=== PATIENT | female | born 1960 | race Caucasian/White ===

== ENCOUNTER → 2016-11-16 | Outpatient (CLI) | payer BC, OTHER ==
[~2016-11-16] MED LIST: ATOR-22 PO; B-COTAB18 PO; CINN500C13 PO; CYCL10TA6 PO; FERR325T PO; FERR325T51 PO; FLAX1CAP11 PO; GLC/500 PO; MELO15TA4 PO; MELO7.5T5 PO; OMEP40CA PO; OMEP40CA41 PO; OXYC-292 PO; PREG1CAP70 PO; SULI200T4 PO; TOPI50TA24 PO; ZOLP1TAB PO
[2016-11-20 20:18] LABS: ALTERNARIA CLASS 0; ALTERNARIA IGE <0.10 KU/L; ASPERG FUMIG CLASS 0; ASPERG FUMIG IGE <0.10 KU/L; BAHIA GRASS ASM CLASS 0; BAHIA GRASS IGE <0.10 KU/L; BERMUDA GRASS CLASS 0; BERMUDA GRASS IGE <0.10 KU/L; BIRCH CLASS 0; BLACK LOCUST CLASS 0; BLACK LOCUST IGE <0.35 kU/L (<0.35); CAT DANDER CLASS 0; CLADOSPORIUM HER CLASS 0; CLADOSPORIUM HER IGE <0.10 KU/L; COCKROACH CLASS 0; D. FARINAE CLASS 0; D. FARINAE IGE <0.10 KU/L; D. PTERONYSSINUS CLASS 0; D. PTERONYSSINUS IGE <0.10 KU/L; DOG DANDER CLASS 0; ELM CLASS 0; ENGLISH PLAN CLASS 0; ENGLISH PLAN IGE <0.10 KU/L; JOHNSON CLASS 0; JOHNSON IGE <0.10 KU/L; JUNE (KENTUCKY BLUE) CLASS 0; JUNE IGE <0.10 KU/L; MAPLE (BOX ELDER) IGE <0.10 KU/L; MAPLE CLASS 0; MOUNTAIN CEDAR ASM CLASS 0; MOUNTAIN CEDAR IGE <0.10 KU/L; MUCOR CLASS 0; MUCOR IGE <0.10 KU/L; NETTLE CLASS 0; NETTLE IGE <0.10 KU/L; PENIC NOTATUM CLASS 0; PENIC NOTATUM IGE <0.10 KU/L; ROUGH PIGWEED CLASS 0; ROUGH PIGWEED IGE <0.10 KU/L; SHORT RAGWEED CLASS 0; SHORT RAGWEED IGE <0.10 KU/L; STEMPHY BOTRY CLASS 0; STEMPHY BOTRY IGE <0.10 KU/L; WHITE HICKORY ASM CLASS 0; WHITE HICKORY IGE <0.10 kU/L (<0.35); WHITE MULBERRY CLASS 0; WHITE MULBERRY IGE <0.10 KU/L
== END | disposition home or self-care (01) ==
LOC: C.LAB1850 09:08
PROVIDERS: ATTEND Internal Medicine Pulmonary Disease
DX: L29.9 Pruritus, unspecified (principal); R06.7 Sneezing

== ENCOUNTER → 2017-01-27 | Outpatient (CLI) | payer BC, OTHER ==
[~2017-01-27] MED LIST changes: +FERR1TAB62 PO; -FERR325T PO
[2017-01-27 14:39] LABS: BASO % 0.6 %; BASO ABS # 0.03 K/uL (0-0.2); COMPLETE YES; EOS % 1.3 %; HEMATOCRIT 38.5 % (37-47); LYMPH % 35.6 %; MEAN CORPUSCULAR HEMOGLOBIN 31.9 pg (25-34); MEAN CORPUSCULAR HGB CONC 34.3 g/dl (32-36); MEAN PLATELET VOLUME 9.6 fL (7.4-10.4); MONO % 6.2 %; NEUT % 56.3 %; PLATELET COUNT 229 K/uL (130-400); RED BLOOD COUNT 4.14 M/uL (4.2-5.4); WHITE BLOOD COUNT 5.34 K/uL (4.8-10.8)
[2017-01-27 14:55] LABS: CALCIUM 9.4 mg/dl (8.5-10.1)
[2017-01-27 14:59] LABS: BLOOD UREA NITROGEN 14 mg/dl (7-18); BUN/CREATININE RATIO 18.9 (10-20); CARBON DIOXIDE 30 mmol/L (21-32); CHLORIDE 106 mmol/L (98-107); CREATININE 0.74 mg/dl (0.60-1.20); GLUCOSE 161 mg/dl (70-99); POTASSIUM 3.9 mmol/L (3.5-5.1); SODIUM 142 mmol/L (136-145)
[2017-01-27 16:48] LABS: LYME DISEASE AB IGM NEG (NEG)
[2017-01-27 16:51] LABS: LYME DISEASE AB IGG NEG (NEG)
== END | disposition home or self-care (01) ==
LOC: C.LABBC 11:10
PROVIDERS: ATTEND Nurse Practitioner Adult Health
DX: T14.8 Other injury of unspecified body region (principal); W57.XXXA Bitten or stung by nonvenomous insect and other nonvenomous arthropods, initial encounter; E11.9 Type 2 diabetes mellitus without complications

== ENCOUNTER → 2017-03-02 | Outpatient (CLI) | payer BC, OTHER ==
[2017-03-02 14:17] LABS: ESTIMATED AVERAGE GLUCOSE 134 mg/dl; HA1C FLAG Normal (Normal)
== END | disposition home or self-care (01) ==
LOC: C.LABBC 09:51
PROVIDERS: ATTEND Nurse Practitioner Adult Health
DX: Z00.00 Encounter for general adult medical examination without abnormal findings (principal); E11.9 Type 2 diabetes mellitus without complications

== ENCOUNTER → 2017-03-25 | Day surgery (SDC) | payer BC, OTHER ==
[2017-03-23 07:40] VITALS: BMI 33.0
[~2017-03-25] VITALS: Ht 167.6 cm; Wt 93.2 kg
[~2017-03-25] MED LIST changes: -FERR1TAB62 PO; +FERR325T PO; +LIDOCAINE HCL 2% 2 ML VIAL (20MG/ML) ONE; -MELO7.5T5 PO; -PREG1CAP70 PO; +PROPOFOL IV EMULSION 10 MG/ML 20 ML VIAL IV ONE; +SODIUM CHLORIDE 0.9% 500ML 500 ML IV ONE
[2017-03-25 14:32] VITALS: Ht 167.6 cm; Wt 93.2 kg
--- NOTE | 2017-03-25 14:35 | Endo History and Physical ---
History & Physical Date of Service: Mar 25, 2017. Chief Complaint: GERD Screening colonoscopy Referring Physician: Yulia Wang History of Present Illness 57 yo CF who presents for EGD secondary to GERD and screening colonoscopy. Past Medical History Diabetes, Fractures, Anxiety, Reflux, High Cholesterol, Sleep Apnea, Syncopal Episodes, Depression Past Surgical History Hx Cardiac Surgery: No Hx Internal Defibrillator: No Hx Pacemaker: No Hx Abdominal Surgery: Yes (C SECTION X 3, HAN USO) Hx of Implantable Prosthesis: No Hx Post-Op Nausea and Vomiting: No Hx Cancer Surgery: No Hx Thoracic Surgery: No Hx Orthopedic: Yes (LUMBAR LAMINECTOMY, LUMBAR DENERVATION) Hx Urinary Tract Surgery: No Family History None Social History Smoking Status: Former Smoker Hx Substance Use: No Hx Alcohol Use: No (OCAS) Allergies Coded Allergies: Gabapentin (Verified Allergy, Mild, HIVES, 03/25/17) Pregabalin (Verified Allergy, Mild, HIVES, 03/25/17) Cephalexin (Verified Allergy, Unknown, ANAPHYLAXIS, 03/25/17) Latex (Unverified Allergy, Unknown, rash, 03/25/17) Penicillins (Verified Allergy, Unknown, ANAPHYLAXIS, 03/25/17) Sulfa Antibiotics (Verified Allergy, Unknown, ANAPHYLAXIS, 03/25/17) Current Medications Reported Home Medications Medications Dose Route/Sig Max Daily Dose Days Date Category Dose Instructions Ambien Er (Zolpidem Tartrate) 12.5 Mg Tab 12.5 Mg PO HS 03/23/17 Reported Clinoril (Sulindac) 200 Mg Tab 200 Mg PO QAM 03/23/17 Reported Flax Seed Oil (Flaxseed (Linseed)) 1 Cap Cap 1 Cap PO ON HOLD 07/31/16 Reported Vitamin B Complex (B-Complex Vitamins) 1 Tab Tab 1 Tab PO HOLD 07/31/16 Reported Cinnamon Extract (Cinnamon) 500 Mg Cap 1 Cap PO BID 07/31/16 Reported ON HOLD Iron Supplement (Ferrous Sulfate) 325 Mg Tab 1 Tab PO HOLD 30 04/03/16 Reported Glucophage (Metformin Hcl) 500 Mg Tab 500 Mg PO BID 04/03/16 Reported Topamax (Topiramate) 50 Mg Tab 50 Mg PO BID 04/03/16 Reported Flexeril (Cyclobenzaprine Hcl) 10 Mg Tab 10 Mg PO HS PRN 04/03/16 Reported Prilosec (Omeprazole) 40 Mg Capcr 40 Mg PO QAM 04/03/16 Reported Lipitor (Atorvastatin Calcium) 20 Mg Tab 20 Mg PO QAM 04/03/16 Reported Vital Signs Weight (Kilograms): 93.18 Height (Feet): 5 Height (Inches): 6 Physical Exam General Appearance: WD/WN, no apparent distress Respiratory/Chest: Auscultation: breath sounds normal Cardiovascular: Heart Auscultation: RRR Abdomen: Bowel Sounds: normal Inspection & Palpation: soft, non-distended, no tenderness, guarding & rebound Assessment and Plan Assessment: 57 yo CF who presents for EGD secondary to GERD and screening colonoscopy. Plan: Proceed with EGD and Colonoscopy.
--- NOTE | 2017-03-25 15:24 | GI REPORT ---
Procedure Date: 03/25/2017 3:10 PM Procedure: Upper GI endoscopy Indications: Gastro-esophageal reflux disease Medicines: Monitored Anesthesia Care Complications: No immediate complications. Estimated Blood Loss: Estimated blood loss: none. Procedure: Pre-Anesthesia Assessment: - Prior to the procedure, a History and Physical was performed, and patient medications and allergies were reviewed. The patient's tolerance of previous anesthesia was also reviewed. The risks and benefits of the procedure and the sedation options and risks were discussed with the patient. All questions were answered, and informed consent was obtained. Prior Anticoagulants: The patient has taken no previous anticoagulant or antiplatelet agents. ASA Grade Assessment: II - A patient with mild systemic disease. After reviewing the risks and benefits, the patient was deemed in satisfactory condition to undergo the procedure. After obtaining informed consent, the endoscope was passed under direct vision. Throughout the procedure, the patient's blood pressure, pulse, and oxygen saturations were monitored continuously. The Scope was introduced through the mouth, and advanced to the second part of duodenum. The upper GI endoscopy was accomplished without difficulty. The patient tolerated the procedure well. Findings: Localized candidiasis was found in the middle third of the esophagus. Cells for cytology were obtained by brushing. The Z-line was irregular. Biopsies were taken with a cold forceps for histology. The stomach was normal. The examined duodenum was normal. Impression: - Monilial esophagitis. Cells for cytology obtained. - Z-line irregular. Biopsied. - Normal stomach. - Normal examined duodenum. Recommendation: - Resume previous diet. - Continue present medications. - Await pathology results. - Return to GI office as previously scheduled. Alfonzo Miller, DO 03/25/2017 3:24:15 PM This report has been signed electronically. Note Initiated On: 03/25/2017 3:10 PM I attest to the content of the Intraoperative Record and orders documented therein, exceptions below
--- NOTE | 2017-03-25 15:57 | Anesthesiology Progress Note ---
Anesthesia Post Op Note Date & Time Mar 25, 2017 at 15:56 Vital Signs Pain Intensity: 0 Vital Signs Past 12 Hours Date Time Temp Pulse Resp B/P (MAP) Pulse Ox O2 Delivery O2 Flow Rate FiO2 03/25/17 14:40 37.4 78 20 110/70 (83) 97 Room Air Notes Mental Status: alert / awake / arousable, participated in evaluation Pt Amnestic to Procedure: Yes Nausea / Vomiting: adequately controlled Pain: adequately controlled Airway Patency, RR, SpO2: stable & adequate BP & HR: stable & adequate Hydration State: stable & adequate Anesthetic Complications: no major complications apparent
--- NOTE | 2017-03-25 16:02 | Discharge Instructions ---
Endoscopy Patient Instructions Date / Procedure(s) Performed Mar 25, 2017. Colonoscopy, EGD Allergy Information Coded Allergies: Gabapentin (Verified Allergy, Mild, HIVES, 03/25/17) Pregabalin (Verified Allergy, Mild, HIVES, 03/25/17) Cephalexin (Verified Allergy, Unknown, ANAPHYLAXIS, 03/25/17) Latex (Unverified Allergy, Unknown, rash, 03/25/17) Penicillins (Verified Allergy, Unknown, ANAPHYLAXIS, 03/25/17) Sulfa Antibiotics (Verified Allergy, Unknown, ANAPHYLAXIS, 03/25/17) Discharge Date / Findings Mar 25, 2017. EGD: Esophageal biopsies and brushings Colonoscopy: Colon polyps, Internal hemorrhoids Medication Instructions Stopped Medication(s): VITAMINS AND SUPPLEMENTS OK to resume all medications today as prescribed Reported Home Medications Medications Dose Route/Sig Max Daily Dose Days Date Category Dose Instructions Ambien Er (Zolpidem Tartrate) 12.5 Mg Tab 12.5 Mg PO HS 03/23/17 Reported Clinoril (Sulindac) 200 Mg Tab 200 Mg PO QAM 03/23/17 Reported Flax Seed Oil (Flaxseed (Linseed)) 1 Cap Cap 1 Cap PO ON HOLD 07/31/16 Reported Vitamin B Complex (B-Complex Vitamins) 1 Tab Tab 1 Tab PO HOLD 07/31/16 Reported Cinnamon Extract (Cinnamon) 500 Mg Cap 1 Cap PO BID 07/31/16 Reported ON HOLD Iron Supplement (Ferrous Sulfate) 325 Mg Tab 1 Tab PO HOLD 30 04/03/16 Reported Glucophage (Metformin Hcl) 500 Mg Tab 500 Mg PO BID 04/03/16 Reported Topamax (Topiramate) 50 Mg Tab 50 Mg PO BID 04/03/16 Reported Flexeril (Cyclobenzaprine Hcl) 10 Mg Tab 10 Mg PO HS PRN 04/03/16 Reported Prilosec (Omeprazole) 40 Mg Capcr 40 Mg PO QAM 04/03/16 Reported Lipitor (Atorvastatin Calcium) 20 Mg Tab 20 Mg PO QAM 04/03/16 Reported Provider Instructions Activity Restrictions - No exercising or heavy lifting for 24 hours. - Do not drink alcohol the day of the procedure. - Do not drive a car or operate machinery until the day after the procedure. - Do not make any important decisions or sign important papers in 24 hours after the procedure. Following Day: - Return to full activity which may include returning to work/school. Diet Start your diet with liquids and light foods (jello, soup, juice, toast). Then eat your usual diet if not nauseated. Treatment For Common After Affects For mild abdominal pain, bloating, or excessive gas: - Rest - Eat lightly - Lie on right side Follow-Up Information Follow-up with [facility] as scheduled Anesthesia Information What You Should Know You have had a procedure that required some medicine to reduce anxiety and discomfort. This treatment is called moderate sedation. After receiving the treatment, you may be sleepy, but you will be able to breathe on your own. The effects of the treatment may last for several hours. Follow these instructions along with Activity/Diet recommendations noted above: * Do NOT do anything where dizziness or clumsiness would be dangerous. * Rest quietly at home today, then you can be up and about tomorrow. * Have a responsible person stay with you the rest of today. * You may have had an I.V. today. If so, you may take the dressing off later today. Recommendations Call your doctor if: * Trouble breathing * Continuous vomiting for more than 24 hours * Temperature above 101 degrees * Severe abdominal pain or bloating * Pain not relieved by pain medicine ordered * There is increased drainage or redness from any incision * A large amount of rectal bleeding greater than 2-3 tablespoons. (If you had a polyp/s removed or have hemorrhoids, a small amount of blood - from the rectum is to be expected.) * You have any unanswered questions or concerns. IN THE EVENT OF A SERIOUS EMERGENCY, GO TO THE NEAREST EMERGENCY ROOM Your discharge instructions were prepared by provider Alfonzo Miller. Patient Instructions Signature Page Jodi Ayala Patient (or Guardian) Signature/Date: I have read and understand the instructions given to me by my caregivers. Caregiver/RN/Doctor Signature/Date: The above-named patient and/or guardian has received patient instructions on this date. + Original Patient Signature Page (only) stays with chart. Please make copy for patient.
--- NOTE | 2017-03-25 16:05 | GI REPORT ---
Procedure Date: 03/25/2017 3:10 PM Procedure: Colonoscopy Indications: Screening for colorectal malignant neoplasm Medicines: Monitored Anesthesia Care Complications: No immediate complications. Estimated Blood Loss: Estimated blood loss: none. Procedure: Pre-Anesthesia Assessment: - Prior to the procedure, a History and Physical was performed, and patient medications and allergies were reviewed. The patient's tolerance of previous anesthesia was also reviewed. The risks and benefits of the procedure and the sedation options and risks were discussed with the patient. All questions were answered, and informed consent was obtained. Prior Anticoagulants: The patient has taken no previous anticoagulant or antiplatelet agents. ASA Grade Assessment: II - A patient with mild systemic disease. After reviewing the risks and benefits, the patient was deemed in satisfactory condition to undergo the procedure. After I obtained informed consent, the scope was passed under direct vision. Throughout the procedure, the patient's blood pressure, pulse, and oxygen saturations were monitored continuously. The Scope was introduced through the anus and advanced to the terminal ileum. The colonoscopy was performed without difficulty. The patient tolerated the procedure well. The quality of the bowel preparation was good. The terminal ileum, ileocecal valve, appendiceal orifice, and rectum were photographed. Findings: Two sessile polyps were found in the transverse colon and in the ascending colon. The polyps were 5 to 6 mm in size. These polyps were removed with a hot snare. Resection and retrieval were complete. Non-bleeding internal hemorrhoids were found during retroflexion. The hemorrhoids were small. Impression: - Two 5 to 6 mm polyps in the transverse colon and in the ascending colon, removed with a hot snare. Resected and retrieved. - Non-bleeding internal hemorrhoids. Recommendation: - Resume previous diet. - Continue present medications. - Repeat colonoscopy for surveillance based on pathology results. - Return to primary care physician as previously scheduled. Alfonzo Miller DO 03/25/2017 4:04:12 PM This report has been signed electronically. Note Initiated On: 03/25/2017 3:10 PM I attest to the content of the Intraoperative Record and orders documented therein, exceptions below
[2017-03-25 16:24] VITALS: BP 123/68; PULSE 65; O2SAT 99
== END | disposition home or self-care (01) ==
LOC: C.GI 13:46
PROVIDERS: ATTEND Internal Medicine
DX: Z12.11 Encounter for screening for malignant neoplasm of colon (principal); K21.9 Gastro-esophageal reflux disease without esophagitis; D12.3 Benign neoplasm of transverse colon; D12.2 Benign neoplasm of ascending colon; K64.8 Other hemorrhoids; K31.89 Other diseases of stomach and duodenum; K20.8 Other esophagitis; E11.9 Type 2 diabetes mellitus without complications; E78.00 Pure hypercholesterolemia, unspecified; G47.33 Obstructive sleep apnea (adult) (pediatric); Z98.890 Other specified postprocedural states; Z87.891 Personal history of nicotine dependence; Z88.0 Allergy status to penicillin; Z88.2 Allergy status to sulfonamides; Z91.040 Latex allergy status; Z68.33 Body mass index [BMI] 33.0-33.9, adult

== ENCOUNTER → 2017-04-28 | Outpatient (CLI) | payer BC, OTHER ==
[~2017-04-28] MED LIST changes: -LIDOCAINE HCL 2% 2 ML VIAL (20MG/ML) ONE; -MELO15TA4 PO; -PROPOFOL IV EMULSION 10 MG/ML 20 ML VIAL IV ONE; -SODIUM CHLORIDE 0.9% 500ML 500 ML IV ONE
--- NOTE | 2017-04-28 13:06 | DIAGNOSTIC IMAGING REPORT ---
C-SPINE ROUTINE W/FLEX EXT CLINICAL HISTORY: 57 years-old Female presenting with chronic cervicalgia. TECHNIQUE: Frontal, bilateral oblique, lateral, and open-mouth odontoid views of the cervical spine were obtained in nuclear position. Subsequently active flexion and extension views were obtained in lateral projection. COMPARISON: CT from 07/30/2016. FINDINGS: The C6 vertebral body is the last fully visualized level, partially limiting evaluation. Normal cervical lordosis. Vertebral bodies maintain normal height and alignment. Intervertebral disks preserved. No osseous neural foraminal narrowing. Atlantoaxial interval normal. Lateral masses of C1 articulate normally with C2. No radiographic evidence of acute fracture or subluxation. No subluxation on flexion or extension views. No prevertebral soft tissue swelling. IMPRESSION: Normal cervical spine. Electronically signed by: Len Parekh M.D. 04/28/2017 1:04 PM Dictated Date/Time: 04/28/2017 1:01 PM
== END | disposition home or self-care (01) ==
LOC: C.RADBC 12:12
PROVIDERS: ATTEND Nurse Practitioner Family
DX: M54.2 Cervicalgia (principal); G89.4 Chronic pain syndrome

== ENCOUNTER → 2017-05-10 | Outpatient (CLI) | payer BC, OTHER | END | disposition home or self-care (01) | LOC: C.PATHSPEC 17:49 | PROVIDERS: ATTEND Dermatology | DX: D36.7 Benign neoplasm of other specified sites (principal) ==

== ENCOUNTER 2017-05-12 05:34 | Emergency (ER) | payer BC, OTHER ==
[~2017-05-12] VITALS: Ht 168.9 cm; Wt 95.0 kg
[~2017-05-12 05:34] MED LIST changes: -FERR325T PO; -OMEP40CA41 PO; -OXYC-292 PO
[2017-05-12 05:47] VITALS: TEMP 36.5; Ht 168.9 cm; Wt 95.0 kg
[2017-05-12] MEDS ORDERED: DiphenhydrAMINE HCL 50 MG/ML VIAL IV STA (05:59)
[2017-05-12] MEDS ORDERED: METOCLOPRAMIDE HCL INJ 5 MG/ML 2 ML VIAL IV STA (05:59)
[2017-05-12] MEDS ORDERED: SODIUM CHLORIDE 0.9% 1000ML 1,000 ML IV STA (06:00)
[2017-05-12 06:21] LABS: BASO % 0.3 %; BASO ABS # 0.03 K/uL (0-0.2); COMPLETE YES; EOS % 0.5 %; HEMATOCRIT 37.9 % (37-47); IG% 0.3 %; LYMPH % 13.3 %; LYMPH ABS # 1.14 K/uL (1.2-3.4); MEAN CELL VOLUME 88.8 fL (80-100); MEAN CORPUSCULAR HEMOGLOBIN 31.9 pg (25-34); MEAN CORPUSCULAR HGB CONC 35.9 g/dl (32-36); NEUT % 82.6 %; PLATELET COUNT 218 K/uL (130-400); RED BLOOD COUNT 4.27 M/uL (4.2-5.4)
[2017-05-12] MEDS ORDERED: OMEP40CA41 PO (06:21)
[2017-05-12] MEDS ORDERED: FERR325T PO (06:21)
[2017-05-12] MEDS ORDERED: OXYC-292 PO (06:23)
[2017-05-12 06:36] LABS: CALCIUM 8.4 mg/dl (8.5-10.1); CREATININE 0.79 mg/dl (0.60-1.20); POTASSIUM 4.1 mmol/L (3.5-5.1)
[2017-05-12] MEDS ORDERED: ONDANSETRON HOME PACK 4MG OD TAB PO ONE (07:00)
[2017-05-12] MEDS ORDERED: DEXAMETHASONE SOD INJ 10 MG/ML VIAL IV ONE (07:00)
--- NOTE | 2017-05-12 07:03 | DIAGNOSTIC IMAGING REPORT ---
CT SCAN OF THE BRAIN WITHOUT IV CONTRAST CLINICAL HISTORY: Headache. COMPARISON STUDY: CT of the brain dated 07/30/2016. TECHNIQUE: Unenhanced axial CT scan of the brain is performed from the vertex to the skull base. Automated dose control exposure was utilized. A dose lowering technique was utilized adhering to the principles of ALARA. CT DOSE: 614.27 mGy.cm FINDINGS: Brain parenchyma: The brain parenchyma is normal in appearance. There is no hemorrhage, mass effect, or evidence of acute territorial ischemia by CT criteria. Sims-white matter is preserved. No extra-axial fluid collection is seen. Ventricles, sulci, cisterns: Normal in configuration. Intracranial vasculature: The visualized intracranial vasculature at the skull base is normal in appearance. Calvarium: Unremarkable. Sinuses and mastoids: The visualized paranasal sinuses are clear. The mastoid air cells are well pneumatized. Orbits: The bony orbits are grossly intact. IMPRESSION: No acute intracranial abnormality. Electronically signed by: Carlos Brantley M.D. 05/12/2017 7:02 AM Dictated Date/Time: 05/12/2017 7:00 AM
[2017-05-12 07:35] VITALS: BP 138/77; PULSE 72; O2SAT 93
--- NOTE | 2017-05-12 21:28 | EMERGENCY ROOM VISIT NOTE ---
History First contact with patient: 05:57 Chief Complaint: HEADACHE Stated Complaint: THROWING UP, HEADACHE History of Present Illness The patient is a 57 year old female who presents to the Emergency Room with complaints of severe sudden onset of headache for the past few hours that woke her up out of sleep. Patient states this isn't the worst headache of her life. She describes as throbbing, ranging in severity 10 out of 10 to the frontal region. Patient also has of nausea and vomiting. Patient states she thought she might of had a bad sandwich last night but is unsure. Patient denies chest pain, dyspnea, abdominal pain, fevers, cough, congestion, neck stiffness, cold symptoms. She's had normal imaging in the past. Patient denies numbness tingling, localized weakness. Patient has photophobia. Patient states normally with her migraines she can sit in the tub with warm water and this resolves them. This did not help. Review of Systems See HPI for pertinent positives & negatives. A total of 10 systems reviewed and were otherwise negative. Past Medical/Surgical History Medical Problems: (1) Anxiety disorder (2) Barretts esophagus (3) Depressive disorder (4) Diabetes (5) Dyslipidemia (6) Fibromyalgia (7) Gastroesophageal reflux disease (8) Hypertension (9) Left ureteral calculus (10) Reflex sympathetic dystrophy (11) Renal colic on left side (12) Sleep apnea (13) Syncopal episodes Surgical Problems: (1) H/O: hysterectomy (2) History of section (3) History of lumbar laminectomy (4) Hx of cholecystectomy Family History Patient reports no known family medical history. Social History Smoking Status: Former Smoker Drug Use: none Marital Status: Housing Status: lives with family Occupation Status: retired Current/Historical Medications Scheduled Atorvastatin (Lipitor), 20 MG PO QAM Ferrous Sulfate (Ferrous Sulfate), 325 MG PO UD Metformin Hcl (Glucophage), 500 MG PO BID Omeprazole (Prilosec), 40 MG PO DAILY Oxycodone Hcl (Oxycodone Hcl Er), 10 MG PO DAILYBB Sulindac (Clinoril), 200 MG PO QAM Topiramate (Topamax), 50 MG PO BID Zolpidem Tartrate (Ambien Er), 12.5 MG PO HS Scheduled PRN Cyclobenzaprine Hcl (Flexeril), 10 MG PO HS PRN for SPASMS Physical Exam Vital Signs Date Time Temp Pulse Resp B/P (MAP) Pulse Ox O2 Delivery O2 Flow Rate FiO2 05/12/17 07:35 72 17 138/77 93 05/12/17 06:46 81 17 141/83 93 Room Air 05/12/17 05:47 36.5 85 20 157/96 97 Room Air Physical Exam VITALS: Vitals are noted on the nurse's note and reviewed by myself. Vital signs hypertensive GENERAL:pleasant female in obvious pain and vomiting, nondiaphoretic, well- developed well-nourished. SKIN: The skin was without rashes, erythema, edema, or bruising. There is no tenting of the skin. Capillary reflex less than 2 seconds. HEAD: Normocephalic atraumatic. EARS: External auditory canals clear, tympanic membranes pearly sims without erythema or effusion bilaterally. EYES: Pupils equal round and reactive to light and accommodation. Conjunctivae without injection, sclerae without icterus. Extraocular movements intact. NOSE: Patent, turbinates without inflammation or discharge. No sinus tenderness. MOUTH: Mucous membranes moist. Pharynx without erythema or exudate. Uvula midline. Airway patent. Tongue does not deviate. NECK: Supple without nuchal rigidity. No lymphadenopathy. No thyromegaly. Cervical spine is nontender. No JVD. No meningeal signs HEART: Regular rate and rhythm without murmurs gallops or rubs. LUNGS: Clear to auscultation bilaterally without wheezes, rales or rhonchi. No dullness to percussion. No retractions or accessory muscle use. ABDOMEN: Positive bowel sounds x 4. Normal tympanic percussion. Soft, nontender, without masses or organomegaly. Dimas sign negative. No guarding or rebound tenderness. MUSCULOSKELETAL: No muscle atrophy, erythema, or edema noted. NEURO: Patient was alert and oriented to person place and time. Normal sensation to light and sharp touch. No focal neurological deficits. Cranial nerves II-12 grossly intact. No pronator drift. Cerebellar exam intact. Medical Decision & Procedures Laboratory Results 05/12/17 05:55 Red Blood Count 4.27, Mean Corpuscular Volume 88.8, Mean Corpuscular Hemoglobin 31.9, Mean Corpuscular Hemoglobin Concent 35.9, Mean Platelet Volume 9.0, Neutrophils (%) (Auto) 82.6, Lymphocytes (%) (Auto) 13.3, Monocytes (%) (Auto) 3.0, Eosinophils (%) (Auto) 0.5, Basophils (%) (Auto) 0.3, Neutrophils # (Auto) 7.10, Lymphocytes # (Auto) 1.14, Monocytes # (Auto) 0.26, Eosinophils # (Auto) 0.04, Basophils # (Auto) 0.03 05/12/17 05:55 Test 05/12/17 05:55 White Blood Count 8.60 K/uL (4.8-10.8) Red Blood Count 4.27 M/uL (4.2-5.4) Hemoglobin 13.6 g/dL (12.0-16.0) Hematocrit 37.9 % (37-47) Mean Corpuscular Volume 88.8 fL (80-100) Mean Corpuscular Hemoglobin 31.9 pg (25-34) Mean Corpuscular Hemoglobin Concent 35.9 g/dl (32-36) Platelet Count 218 K/uL (130-400) Mean Platelet Volume 9.0 fL (7.4-10.4) Neutrophils (%) (Auto) 82.6 % Lymphocytes (%) (Auto) 13.3 % Monocytes (%) (Auto) 3.0 % Eosinophils (%) (Auto) 0.5 % Basophils (%) (Auto) 0.3 % Neutrophils # (Auto) 7.10 K/uL (1.4-6.5) Lymphocytes # (Auto) 1.14 K/uL (1.2-3.4) Monocytes # (Auto) 0.26 K/uL (0.11-0.59) Eosinophils # (Auto) 0.04 K/uL (0-0.5) Basophils # (Auto) 0.03 K/uL (0-0.2) RDW Standard Deviation 42.8 fL (36.4-46.3) RDW Coefficient of Variation 13.2 % (11.5-14.5) Immature Granulocyte % (Auto) 0.3 % Immature Granulocyte # (Auto) 0.03 K/uL (0.00-0.02) Anion Gap 5.0 mmol/L (3-11) Est Creatinine Clear Calc Drug Dose 94.3 ml/min Estimated GFR () 97.7 Estimated GFR (Non- 84.3 BUN/Creatinine Ratio 26.0 (10-20) Calcium Level 8.4 mg/dl (8.5-10.1) Medications Administered Medications (Trade) Dose Ordered Sig/Shruthi Route Start Time Stop Time Status Last Admin Dose Admin Metoclopramide HCl (Reglan Inj) 10 mg NOW STAT IV 05/12/17 05:59 05/12/17 06:01 DC 05/12/17 06:07 10 MG Diphenhydramine HCl (Benadryl Inj) 25 mg NOW STAT IV 05/12/17 05:59 05/12/17 06:01 DC 05/12/17 06:06 25 MG Sodium Chloride 1,000 ml @ 999 mls/hr Q1H1M STAT IV 05/12/17 06:00 05/12/17 07:00 DC 05/12/17 06:08 999 MLS/HR Dexamethasone Sodium Phosphate (Decadron Inj) 10 mg NOW ONCE IV 05/12/17 07:00 05/12/17 07:01 DC 05/12/17 07:17 10 MG Ondansetron HCl (ZOFRAN ODT 4MG Home Pack) 1 homepack UD ONCE PO 05/12/17 07:00 05/12/17 07:01 DC 05/12/17 07:17 1 HOMEPACK ED Course Prior records/ancillary studies reviewed. Additional history obtained from family Triage Nursing notes reviewed. The patient's history was concerning for headache. Differential diagnosis: Etiologies such as migraine headache, meningitis, sinusitis, CO exposure, ICH, SAH, infection, tumor, headache, sinus thrombosis, arterial dissection, as well as others were entertained. Physical examination findings: As above. Non-focal. ER treatment provided: Reglan, Benadryl, IV fluids On reassessment the patient felt better. Diagnostics interpreted by me: The labs revealed no leukocytosis. Stable H&H Hyperglycemia without DKA Imaging studies: Head CT negative for intracranial bleed [~ rep ct add3]] CT SCAN OF THE BRAIN WITHOUT IV CONTRAST CLINICAL HISTORY: Headache. COMPARISON STUDY: CT of the brain dated 07/30/2016. TECHNIQUE: Unenhanced axial CT scan of the brain is performed from the vertex to the skull base. Automated dose control exposure was utilized. A dose lowering technique was utilized adhering to the principles of ALARA. CT DOSE: 614.27 mGy.cm FINDINGS: Brain parenchyma: The brain parenchyma is normal in appearance. There is no hemorrhage, mass effect, or evidence of acute territorial ischemia by CT criteria. Sims-white matter is preserved. No extra-axial fluid collection is seen. Ventricles, sulci, cisterns: Normal in configuration. Intracranial vasculature: The visualized intracranial vasculature at the skull base is normal in appearance. Calvarium: Unremarkable. Sinuses and mastoids: The visualized paranasal sinuses are clear. The mastoid air cells are well pneumatized. Orbits: The bony orbits are grossly intact. IMPRESSION: No acute intracranial abnormality. Electronically signed by: Carlos Brantley M.D. This appears to be consistent with headache with vomiting. Patient was neurovascularly and neurologically intact. She felt much better after being medicated as above. She is well-appearing. No signs of meningitis. She is advised to rest, stay well-hydrated and to follow-up family care in a few days or here in the ER sooner for headache, fevers, neck stiffness, worsening signs or symptoms or as needed. By the evaluation outlined above emergent etiologies such as meningitis, sinusitis, CO exposure, ICH, SAH, infection, temporal arteritis, tumor, sinus thrombosis, arterial dissection, as well as others were deemed relatively unlikely. The pt informed about the findings as listed above. All questions were answered and pleased with the treatment. Return instructions were outlined and the patient was discharged in stable condition. Outpatient prescription management: Zofran Referral: The patient was referred back to their primary care physician for follow-up in 2 to 3 days for a recheck of the current condition. Case reviewed with my attending. Medical Decision As above Medication Reconcilliation Current Medication List: was personally reviewed by me Blood Pressure Screening Patient's blood pressure: Elevated blood pressure Blood pressure disposition: Elevated BP felt to be situational Impression Primary Impression: Migraine Additional Impressions: Vomiting Hyperglycemia due to type 2 diabetes mellitus Departure Information Dispostion Home / Self-Care Condition GOOD Referrals Yulia Wang C.R.NNavinP. (PCP) Patient Instructions My [facility] Additional Instructions DO NOT drive, drink alcohol, operate machinery, or perform dangerous activities today. You were given medications in the ER that can affect your ability to safely function or operate a vehicle. Monitor your blood sugar. It was high. Zofran 4 m tablet every 6 hours as needed for nausea and vomiting. Rest today in a quiet, peaceful, dark environment and get a full 8-10 hrs of sleep tonight. Avoid loud noises, smoke/smoking, alcohol, bright lights, stress, or physical exertion today to minimize the chance the headache may return. Continue current medications. Ibuprofen(Motrin, Advil) may be used for fever or pain. Use 600mg every six hours as needed. Take with food. Avoid using more than 2400mg in a 24 hour period. Do not use 2400mg per day for more than three consecutive days without physician direction. Prolonged inappropriate use can lead to stomach upset or ulcers. (AND/OR) Acetaminophen(Tylenol) may be used for fever or pain. Use 1000mg every six hours as needed. Avoid using more than 3000mg in a 24 hour period. Return to the ER for passing out, worsening headache, vision problems, neck stiffness/pain, fevers, vomiting, worsening of your condition, or as needed. Follow up with your primary physician and/or a neurologist in 2-3 days for a recheck of your current condition. Problem Qualifiers Primary Impression: Migraine Migraine type: without aura Status migrainosus presence: without status migrainosus Intractability: not intractable Qualified Codes: G43.009 - Migraine without aura, not intractable, without status migrainosus Additional Impressions: Vomiting Vomiting type: unspecified Vomiting Intractability: non-intractable Nausea presence: with nausea Qualified Codes: R11.2 - Nausea with vomiting, unspecified
== END 2017-05-12 07:44 | disposition home or self-care (01) ==
LOC: C.EDB 05:35 → C.EDA 07:44
DX: G43.909 Migraine, unspecified, not intractable, without status migrainosus (principal); R11.10 Vomiting, unspecified; E11.65 Type 2 diabetes mellitus with hyperglycemia; I10 Essential (primary) hypertension; E78.5 Hyperlipidemia, unspecified; K21.9 Gastro-esophageal reflux disease without esophagitis; K22.70 Barrett's esophagus without dysplasia; F41.9 Anxiety disorder, unspecified; F32.9 Major depressive disorder, single episode, unspecified; G47.39 Other sleep apnea; Z87.442 Personal history of urinary calculi; Z90.49 Acquired absence of other specified parts of digestive tract; Z90.710 Acquired absence of both cervix and uterus; Z98.890 Other specified postprocedural states; Z79.84 Long term (current) use of oral hypoglycemic drugs; Z79.899 Other long term (current) drug therapy; Z87.891 Personal history of nicotine dependence

== ENCOUNTER 2017-07-15 15:08 | Emergency (ER) | payer BC, OTHER ==
[~2017-07-15] VITALS: Ht 168.9 cm; Wt 97.3 kg
[~2017-07-15 15:08] MED LIST changes: -B-COTAB18 PO; -CINN500C13 PO; +FERR1TAB62 PO; -FERR325T51 PO; -FLAX1CAP11 PO; -OMEP40CA PO; +OMEP40CA41 PO; +OXYC-292 PO
[2017-07-15 15:17] VITALS: TEMP 36.7; Ht 168.9 cm; Wt 97.3 kg
[2017-07-15] MEDS ORDERED: SODIUM CHLORIDE 0.9% 1000ML 1,000 ML IV STA (15:39)
[2017-07-15] MEDS ORDERED: LORAZEPAM 2 MG/ML 1 ML VIAL IV STA (15:39)
--- NOTE | 2017-07-15 15:44 | EMERGENCY ROOM VISIT NOTE ---
History Report prepared by Tessy: Lev Bermudez Under the Supervision of: Dr. Kasia Rhodes M.D. First contact with patient: 15:23 Chief Complaint: NECK PAIN Stated Complaint: NECK PAIN, CORTES History of Present Illness The patient is a 57 year old female diabetic with a history of fibromyalgia and gastroesophageal reflux disease who presents to the Emergency Room with complaints of persistent right-sided neck pain that started prior to arrival this afternoon. She drove here. The patient states that she was sitting on her couch when she suddenly felt her right side of her neck "blow up" and "pop". She notes that she has never felt anything like this in her life. She says that she took 81 mg Asp[address]in on her way here, and on her drive here, she started to feel the right side of her face "thump" and she started to have a right-sided headache. She adds that her chest has been "thumping" as well, and she currently feels cold. The patient states that she has chronic back pain, but it has not worsened today. She says her blood sugars have been running okay. Source of History: patient Onset: Prior to arrival this afternoon Position: neck (right side) Quality: other ("blow up" and "pop") Associated Symptoms: + headache (right side), No back pain (no worsened) Note: Associated symptoms: Chest "thumping", feels cold. Review of Systems See HPI for pertinent positives & negatives. A total of 10 systems reviewed and were otherwise negative. Past Medical & Surgical Medical Problems: (1) Anxiety disorder (2) Barretts esophagus (3) Depressive disorder (4) Diabetes (5) Dyslipidemia (6) Fibromyalgia (7) Gastroesophageal reflux disease (8) Hypertension (9) Left ureteral calculus (10) Reflex sympathetic dystrophy (11) Renal colic on left side (12) Sleep apnea (13) Syncopal episodes Surgical Problems: (1) H/O: hysterectomy (2) History of section (3) History of lumbar laminectomy (4) Hx of cholecystectomy Family History Patient reports no known family medical history. Social History Smoking Status: Former Smoker Drug Use: none Marital Status: Housing Status: lives with family Occupation Status: retired Current/Historical Medications Scheduled Atorvastatin (Lipitor), 20 MG PO QAM Meloxicam (Meloxicam), 15 MG PO DAILY Metformin Hcl (Glucophage), 500 MG PO BID Omeprazole (Prilosec), 40 MG PO DAILY Oxycodone Hcl (Oxycodone Hcl Er), 10 MG PO DAILYBB Topiramate (Topamax), 50 MG PO BID Scheduled PRN Cyclobenzaprine Hcl (Flexeril), 10 MG PO HS PRN for SPASMS Zolpidem Tartrate (Ambien Er), 12.5 MG PO HS PRN for Sleep Allergies Coded Allergies: Cephalexin (Unverified Allergy, Severe, ANAPHYLAXIS, 07/15/17) Penicillins (Unverified Allergy, Severe, ANAPHYLAXIS, 07/15/17) Sulfa Antibiotics (Unverified Allergy, Severe, ANAPHYLAXIS, 07/15/17) Gabapentin (Verified Allergy, Mild, HIVES, 07/15/17) Pregabalin (Verified Allergy, Mild, HIVES, 07/15/17) Latex (Unverified Allergy, Unknown, rash, 07/15/17) Physical Exam Vital Signs Date Time Temp Pulse Resp B/P (MAP) Pulse Ox O2 Delivery O2 Flow Rate FiO2 07/15/17 19:59 84 18 153/98 99 Room Air 07/15/17 18:21 86 16 158/105 100 Room Air 07/15/17 18:09 82 07/15/17 17:13 78 18 143/95 100 Room Air 07/15/17 15:43 83 07/15/17 15:17 36.7 102 16 159/99 98 Room Air Physical Exam Vital signs reviewed. General: Well-appearing 57 year old female, in no significant distress. HEENT: No scleral icterus, PERRLA, neck supple. Atraumatic. Cardiovascular: Regular rate and rhythm, no extra sounds. Pulmonary: Clear to auscultation bilaterally, normal work of breathing. Abdomen: Soft, nontender, nondistended, positive bowel sounds. Musculoskeletal: Mild duskiness to right upper extremity and cool fingertips on right, holding her hand up in the air, flexed elbow. Palpable right neck muscular spasm, no fluctuance or significant swelling appreciated. Neurologic: Patient awake alert and oriented x 3. 2+ pulses to bilateral upper extremities with equal strength. Cranial nerves 2 through 12 grossly intact. Neurologically intact. Skin: Warm, dry, no rash Medical Decision & Procedures ER Provider Diagnostic Interpretation: Radiology results as stated below per my review and radiologist interpretation: CT ANGIOGRAM OF THE CHEST COMBO CLINICAL HISTORY: Right neck pain. Right upper extremity symptoms. Clinical concern for dissection. COMPARISON STUDY: Chest x-ray dated 07/30/2016. TECHNIQUE: Before and following the IV administration of 120 cc of Optiray 320, CT angiogram of the chest was performed from the thoracic inlet to the upper abdomen utilizing the dissection protocol. Images are reviewed in the axial, sagittal, and coronal planes. 3-D MIPS images are created and assessed. IV contrast was administered without complication. A dose lowering technique was utilized adhering to the principles of ALARA. The examination is degraded by streak artifact from the patient's arms which could not be elevated above the chest. CT DOSE: 1806.41 mGy.cm FINDINGS: Thyroid: Imaged portions of the thyroid gland are normal in size and attenuation. Thoracic aorta: No intramural hematoma is seen on the unenhanced series. The thoracic aorta is normal in caliber and demonstrates standard 3-vessel arch anatomy. No dissection is seen. The arch vessels are widely patent. The subclavian, axillary, and proximal brachial arteries are widely patent bilaterally. Pulmonary vasculature: The pulmonary trunk is normal in caliber. There are no central filling defects identified in the pulmonary vessels to suggest pulmonary embolus. Note that this examination was not protocoled to assess for pulmonary emboli. Heart: The heart is normal in size and configuration, and without pericardial effusion. Lungs and pleural spaces: Scattered calcified granulomas are observed. The lungs and pleural spaces are clear. The trachea and central airways are patent. Mediastinum: There is no mediastinal lymphadenopathy. Nargis: Clear. Axillae: There is no axillary lymphadenopathy. Upper abdomen: Cholecystectomy clips are identified. There is a tiny hiatal hernia. Findings suggest hepatic steatosis. Skeletal structures: No lytic or blastic bony lesions are seen. IMPRESSION: 1. There is no aneurysm or dissection seen involving the thoracic aorta or the arch vessels. 2. The lungs are clear. 3. Findings suggest hepatic steatosis. Electronically signed by: Carlos Brantley M.D. 07/15/2017 5:21 PM Dictated Date/Time: 07/15/2017 5:[address] ANGIOGRAPHY OF THE NECK WITH CONTRAST CLINICAL HISTORY: Neck pain. Headache. COMPARISON STUDY: Cervical spine CT July 30, 2016. Technique: CT angiography of the carotid and vertebral arteries was obtained using Optiray 320 IV and 3D reconstruction on an independent workstation. NASCET criteria was utilized. A dose lowering technique was utilized adhering to the principles of ALARA. Findings: The bilateral common carotid, internal carotid and vertebral arteries are patent. There is no stenosis or dissection within these vessels. The right vertebral artery is dominant and patent. No cervical lymphadenopathy or mass is identified. The chest CT will be reported separately. The parotid and submandibular glands are unremarkable. Epiglottis is normal. Visualized portions of the brain parenchyma are unremarkable on this contrast enhanced study. No abscess within the neck is identified. IMPRESSION: Unremarkable CTA of the neck. No dissection or stenosis. Electronically signed by: Jose Morillo M.D. 07/15/2017 5:20 PM Dictated Date/Time: 07/15/2017 5:15 PM RIGHT UPPER EXTREMITY VENOUS DOPPLER ULTRASOUND CLINICAL HISTORY: Right upper extremity, painful and dusky. COMPARISON STUDY: No previous studies for comparison. FINDINGS: The right internal jugular, subclavian, axillary, cephalic, brachial, basilic, radial and ulnar veins are patent. IMPRESSION: No deep venous thrombus within the right upper extremity. Electronically signed by: Jose Morillo M.D. 07/15/2017 7:29 PM Dictated Date/Time: 07/15/2017 7:27 PM Laboratory Results 07/15/17 16:03 Red Blood Count 4.13, Mean Corpuscular Volume 89.3, Mean Corpuscular Hemoglobin 31.7, Mean Corpuscular Hemoglobin Concent 35.5, Mean Platelet Volume 9.0, Neutrophils (%) (Auto) 55.1, Lymphocytes (%) (Auto) 36.6, Monocytes (%) (Auto) 5.2, Eosinophils (%) (Auto) 2.2, Basophils (%) (Auto) 0.6, Neutrophils # (Auto) 3.78, Lymphocytes # (Auto) 2.51, Monocytes # (Auto) 0.36, Eosinophils # (Auto) 0.15, Basophils # (Auto) 0.04 07/15/17 16:03 Test 07/15/17 16:03 White Blood Count 6.86 K/uL (4.8-10.8) Red Blood Count 4.13 M/uL (4.2-5.4) Hemoglobin 13.1 g/dL (12.0-16.0) Hematocrit 36.9 % (37-47) Mean Corpuscular Volume 89.3 fL (80-100) Mean Corpuscular Hemoglobin 31.7 pg (25-34) Mean Corpuscular Hemoglobin Concent 35.5 g/dl (32-36) Platelet Count 234 K/uL (130-400) Mean Platelet Volume 9.0 fL (7.4-10.4) Neutrophils (%) (Auto) 55.1 % Lymphocytes (%) (Auto) 36.6 % Monocytes (%) (Auto) 5.2 % Eosinophils (%) (Auto) 2.2 % Basophils (%) (Auto) 0.6 % Neutrophils # (Auto) 3.78 K/uL (1.4-6.5) Lymphocytes # (Auto) 2.51 K/uL (1.2-3.4) Monocytes # (Auto) 0.36 K/uL (0.11-0.59) Eosinophils # (Auto) 0.15 K/uL (0-0.5) Basophils # (Auto) 0.04 K/uL (0-0.2) RDW Standard Deviation 42.8 fL (36.4-46.3) RDW Coefficient of Variation 13.1 % (11.5-14.5) Immature Granulocyte % (Auto) 0.3 % Immature Granulocyte # (Auto) 0.02 K/uL (0.00-0.02) Prothrombin Time 10.2 SECONDS (9.0-12.0) Prothromb Time International Ratio 1.0 (0.9-1.1) Activated Partial Thromboplast Time 25.3 SECONDS (21.0-31.0) Partial Thromboplastin Ratio 1.0 Anion Gap 6.0 mmol/L (3-11) Est Creatinine Clear Calc Drug Dose 93.1 ml/min Estimated GFR () 94.8 Estimated GFR (Non- 81.8 BUN/Creatinine Ratio 17.9 (10-20) Calcium Level 8.8 mg/dl (8.5-10.1) Total Bilirubin 0.6 mg/dl (0.2-1) Direct Bilirubin 0.1 mg/dl (0-0.2) Aspartate Amino Transf (AST/SGOT) 17 U/L (15-37) Alanine Aminotransferase (ALT/SGPT) 23 U/L (12-78) Alkaline Phosphatase 72 U/L (45-117) Total Protein 7.4 gm/dl (6.4-8.2) Albumin 3.9 gm/dl (3.4-5.0) Laboratory results per my review. Medications Administered Medications (Trade) Dose Ordered Sig/Shruthi Route Start Time Stop Time Status Last Admin Dose Admin Sodium Chloride 1,000 ml @ 125 mls/hr Q8H STAT IV 07/15/17 15:39 07/15/17 20:29 DC 07/15/17 15:55 125 MLS/HR ECG Indication: other (neck pain, arm pain) Rate (beats per minute): 75 Rhythm: normal sinus Findings: no acute ischemic change, no ectopy ED Course 1535: Past medical records reviewed. The patient was evaluated in room C11B. A complete history and physical examination was performed. 153: Ordered NSS 1000 ml @ 125 mls/hr IV, Ativan Inj 1 mg IV. 1949: Upon reevaluation, the patient appeared to have improvement of her symptoms. I discussed findings with her. She verbalized agreement of the treatment plan. She was discharged home. 1999: Ordered Flexeril 10MG Home Pack 1 homepack PO. Medical Decision Differential diagnosis: Carotid dissection, arterial clot, aortic dissection, fibromyalgia, muscular spasm, cervical radiculopathy. This patient was evaluated and appeared to be in no significant distress. Physical examination reveals significant tenderness along the right neck. There is no palpable fluctuation or swelling. CT angiogram was performed and is negative for dissection of the chest or neck. Ultrasound of right upper extremity is negative for DVT. Patient's laboratory work is negative for acute abnormality. Patient was hydrated with normal saline solution. She refused IV Ativan and she would like to drive. The patient's most likely suffering from a muscular spasm. Etiology of the "pop" is unclear. She'll follow-up with her physician for reevaluation. She will need to have her blood pressure reevaluated. The patient was discharged with Flexeril for muscle spasms. She will return to the ER for worsening of symptoms or any medical concerns. Medication Reconcilliation Current Medication List: was personally reviewed by me Blood Pressure Screening Patient's blood pressure: Elevated blood pressure Blood pressure disposition: Elevated BP felt to be situational Impression Primary Impression: Neck muscle spasm Additional Impression: Hypertension Scribe Attestation The scribe's documentation has been prepared under my direction and personally reviewed by me in its entirety. I confirm that the note above accurately reflects all work, treatment, procedures, and medical decision making performed by me. Departure Information Dispostion Home / Self-Care Referrals No Doctor, Assigned (PCP) Forms HOME CARE DOCUMENTATION FORM, IMPORTANT VISIT INFORMATION, WORK / SCHOOL INSTRUCTIONS Patient Instructions My [facility] Additional Instructions Diagnosis: Right neck spasm, hypertension Flexeril 5 mg (1/2 tab) three times daily as needed for muscular spasm Tylenol 650 mg every 6 hours as needed for pain. Warm compresses and gentle stretching. Follow up with your doctor this week for reevaluation. Have your blood pressure rechecked. Return to the ED for worsening of symptoms or any medical concerns. Problem Qualifiers
[2017-07-15] MEDS ORDERED: OPTIRAY 320 IV PRN (16:00)
[2017-07-15 16:24] LABS: BASO % 0.6 %; BASO ABS # 0.04 K/uL (0-0.2); COMPLETE YES; EOS % 2.2 %; HEMATOCRIT 36.9 % (37-47); IG% 0.3 %; LYMPH % 36.6 %; LYMPH ABS # 2.51 K/uL (1.2-3.4); MEAN CELL VOLUME 89.3 fL (80-100); MEAN CORPUSCULAR HEMOGLOBIN 31.7 pg (25-34); MEAN CORPUSCULAR HGB CONC 35.5 g/dl (32-36); MONO % 5.2 %; NEUT % 55.1 %; PLATELET COUNT 234 K/uL (130-400); RED BLOOD COUNT 4.13 M/uL (4.2-5.4); WHITE BLOOD COUNT 6.86 K/uL (4.8-10.8)
[2017-07-15 16:36] LABS: PROTHROMBIN TIME (PATIENT) 10.2 SECONDS (9.0-12.0)
[2017-07-15 16:42] LABS: BUN/CREATININE RATIO 17.9 (10-20); CALCIUM 8.8 mg/dl (8.5-10.1); CREATININE 0.81 mg/dl (0.60-1.20); POTASSIUM 4.1 mmol/L (3.5-5.1)
--- NOTE | 2017-07-15 17:21 | DIAGNOSTIC IMAGING REPORT ---
CT ANGIOGRAPHY OF THE NECK WITH CONTRAST CLINICAL HISTORY: Neck pain. Headache. COMPARISON STUDY: Cervical spine CT July 30, 2016. Technique: CT angiography of the carotid and vertebral arteries was obtained using [employer] 320 IV and 3D reconstruction on an independent workstation. NASCET criteria was utilized. A dose lowering technique was utilized adhering to the principles of ALARA. Findings: The bilateral common carotid, internal carotid and vertebral arteries are patent. There is no stenosis or dissection within these vessels. The right vertebral artery is dominant and patent. No cervical lymphadenopathy or mass is identified. The chest CT will be reported separately. The parotid and submandibular glands are unremarkable. Epiglottis is normal. Visualized portions of the brain parenchyma are unremarkable on this contrast enhanced study. No abscess within the neck is identified. IMPRESSION: Unremarkable CTA of the neck. No dissection or stenosis. Electronically signed by: Jose Morillo M.D. 07/15/2017 5:20 PM Dictated Date/Time: 07/15/2017 5:15 PM
--- NOTE | 2017-07-15 17:22 | DIAGNOSTIC IMAGING REPORT ---
CT ANGIOGRAM OF THE CHEST COMBO CLINICAL HISTORY: Right neck pain. Right upper extremity symptoms. Clinical concern for dissection. COMPARISON STUDY: Chest x-ray dated 07/30/2016. TECHNIQUE: Before and following the IV administration of 120 cc of Optiray 320, CT angiogram of the chest was performed from the thoracic inlet to the upper abdomen utilizing the dissection protocol. Images are reviewed in the axial, sagittal, and coronal planes. 3-D MIPS images are created and assessed. IV contrast was administered without complication. A dose lowering technique was utilized adhering to the principles of ALARA. The examination is degraded by streak artifact from the patient's arms which could not be elevated above the chest. CT DOSE: 1806.41 mGy.cm FINDINGS: Thyroid: Imaged portions of the thyroid gland are normal in size and attenuation. Thoracic aorta: No intramural hematoma is seen on the unenhanced series. The thoracic aorta is normal in caliber and demonstrates standard 3-vessel arch anatomy. No dissection is seen. The arch vessels are widely patent. The subclavian, axillary, and proximal brachial arteries are widely patent bilaterally. Pulmonary vasculature: The pulmonary trunk is normal in caliber. There are no central filling defects identified in the pulmonary vessels to suggest pulmonary embolus. Note that this examination was not protocoled to assess for pulmonary emboli. Heart: The heart is normal in size and configuration, and without pericardial effusion. Lungs and pleural spaces: Scattered calcified granulomas are observed. The lungs and pleural spaces are clear. The trachea and central airways are patent. Mediastinum: There is no mediastinal lymphadenopathy. Nargis: Clear. Axillae: There is no axillary lymphadenopathy. Upper abdomen: Cholecystectomy clips are identified. There is a tiny hiatal hernia. Findings suggest hepatic steatosis. Skeletal structures: No lytic or blastic bony lesions are seen. IMPRESSION: 1. There is no aneurysm or dissection seen involving the thoracic aorta or the arch vessels. 2. The lungs are clear. 3. Findings suggest hepatic steatosis. Electronically signed by: Carlos Brantley M.D. 07/15/2017 5:21 PM Dictated Date/Time: 07/15/2017 5:16 PM
[2017-07-15] MEDS ORDERED: MELO15TA4 PO (17:24)
--- NOTE | 2017-07-15 19:30 | DIAGNOSTIC IMAGING REPORT ---
RIGHT UPPER EXTREMITY VENOUS DOPPLER ULTRASOUND CLINICAL HISTORY: Right upper extremity, painful and dusky. COMPARISON STUDY: No previous studies for comparison. FINDINGS: The right internal jugular, subclavian, axillary, cephalic, brachial, basilic, radial and ulnar veins are patent. IMPRESSION: No deep venous thrombus within the right upper extremity. Electronically signed by: Jose Morillo M.D. 07/15/2017 7:29 PM Dictated Date/Time: 07/15/2017 7:27 PM
[2017-07-15 19:59] VITALS: BP 153/98; PULSE 84; O2SAT 99
[2017-07-15] MEDS ORDERED: FLEXERIL HOME PACK 10 MG VIAL PO ONE (20:00)
== END 2017-07-15 20:08 | disposition home or self-care (01) ==
LOC: C.EDB 15:09 → C.EDC 20:08
DX: M62.838 Other muscle spasm (principal); I10 Essential (primary) hypertension; E11.9 Type 2 diabetes mellitus without complications; M79.7 Fibromyalgia; K21.9 Gastro-esophageal reflux disease without esophagitis; M54.9 Dorsalgia, unspecified; G89.29 Other chronic pain; F32.9 Major depressive disorder, single episode, unspecified; K22.70 Barrett's esophagus without dysplasia; E78.5 Hyperlipidemia, unspecified; Z87.442 Personal history of urinary calculi; G47.30 Sleep apnea, unspecified; Z90.710 Acquired absence of both cervix and uterus; Z90.49 Acquired absence of other specified parts of digestive tract; Z87.891 Personal history of nicotine dependence; Z79.899 Other long term (current) drug therapy

== ENCOUNTER → 2017-08-17 | Outpatient (CLI) | payer BC, OTHER ==
[~2017-08-17] MED LIST changes: -FERR1TAB62 PO; +MELO15TA4 PO; -SULI200T4 PO
[2017-08-17 14:16] LABS: BASO % 0.5 %; BASO ABS # 0.05 K/uL (0-0.2); COMPLETE YES; EOS % 2.9 %; HEMATOCRIT 42.1 % (37-47); IG% 0.3 %; LYMPH % 31.7 %; LYMPH ABS # 2.95 K/uL (1.2-3.4); MEAN CELL VOLUME 94.6 fL (80-100); MEAN CORPUSCULAR HEMOGLOBIN 32.4 pg (25-34); MEAN CORPUSCULAR HGB CONC 34.2 g/dl (32-36); MEAN PLATELET VOLUME 9.4 fL (7.4-10.4); MONO % 7.5 %; NEUT % 57.1 %; PLATELET COUNT 284 K/uL (130-400); RED BLOOD COUNT 4.45 M/uL (4.2-5.4); WHITE BLOOD COUNT 9.31 K/uL (4.8-10.8)
[2017-08-17 14:37] LABS: ALT/SGPT 28 U/L (12-78); AST/SGOT 20 U/L (15-37); BLOOD UREA NITROGEN 16 mg/dl (7-18); BUN/CREATININE RATIO 15.3 (10-20); CALCIUM 9.2 mg/dl (8.5-10.1); CARBON DIOXIDE 25 mmol/L (21-32); CHLORIDE 107 mmol/L (98-107); CREATININE 1.03 mg/dl (0.60-1.20); GLUCOSE 210 mg/dl (70-99); SODIUM 141 mmol/L (136-145)
[2017-08-17 14:39] LABS: ALKALINE PHOSPHATASE 82 U/L (45-117); CHOLESTEROL 224 mg/dl (0-200); CHOLESTEROL/HDL RATIO 3.4; HDL CHOLESTEROL 65 mg/dl; LDL CHOLESTEROL CALCULATED 128 mg/dl; TRIGLYCERIDES 155 mg/dl (0-150); VERY LOW DENSITY LIPOPROT CALC 31 mg/dl
[2017-08-18 07:33] LABS: ESTIMATED AVERAGE GLUCOSE 134 mg/dl; HA1C FLAG Normal (Normal)
== END | disposition home or self-care (01) ==
LOC: C.LABBC 10:01
PROVIDERS: ATTEND Nurse Practitioner Adult Health
DX: E11.9 Type 2 diabetes mellitus without complications (principal)

== ENCOUNTER → 2017-11-30 | Outpatient (CLI) | payer BC, OTHER ==
[~2017-11-30] MED LIST changes: +MELO-83 PO; -MELO15TA4 PO
== END | disposition home or self-care (01) ==
LOC: C.LABSPEC 17:38
PROVIDERS: ATTEND Neuromusculoskeletal Medicine & OMM
DX: R30.0 Dysuria (principal); R31.9 Hematuria, unspecified; R10.9 Unspecified abdominal pain

== ENCOUNTER → 2017-12-01 | Outpatient (CLI) | payer BC, OTHER ==
--- NOTE | 2017-12-01 14:23 | DIAGNOSTIC IMAGING REPORT ---
EXAMINATION: RENAL ULTRASOUND CLINICAL HISTORY: Flank pain. Hematuria. COMPARISON STUDY: CT scan dated 04/03/2016 FINDINGS: The right kidney measures 12.3 cm. The left kidney measures 11.6 cm. There is minimal prominence left renal pelvis. Significant hydronephrosis is not felt to be present. 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 No bladder abnormalities are visualized. Bilateral ureteral jets were visualized. IMPRESSION : 1. No renal masses identified 2. Mild fullness of the left renal pelvis. Significant renal obstruction is not felt to be present as bilateral ureteral jets were visualized Electronically signed by: Jean Pierre Gillette M.D. 12/01/2017 2:21 PM Dictated Date/Time: 12/01/2017 2:19 PM
== END | disposition home or self-care (01) ==
LOC: C.ULTRBC 13:41
PROVIDERS: ATTEND Neuromusculoskeletal Medicine & OMM
DX: R30.0 Dysuria (principal); R10.9 Unspecified abdominal pain; R31.9 Hematuria, unspecified

== ENCOUNTER → 2018-01-04 | Outpatient (CLI) | payer BC, OTHER ==
[~2018-01-04] MED LIST changes: +GABA-112 PO; +VLTG EXT
--- NOTE | 2018-01-04 15:25 | MAMMOGRAPHY REPORT ---
BILATERAL DIGITAL DIAGNOSTIC MAMMOGRAM TOMOSYNTHESIS WITH CAD AND TARGETED RIGHT ULTRASOUND: 8 CLINICAL HISTORY: 57-year-old woman presents with a one-month history of worsening focal stinging, ac bertha and burning pain in the right upper outer breast. Her provider also palpated a lump in the right lower outer quadrant. Patient also has a history of right sided reflex sympathetic dystrophy. TECHNIQUE: Bilateral breast tomosynthesis in addition to standard 2D mammography was performed. Curre nt study was also evaluated with a Computer Aided Detection (CAD) system. COMPARISON: Prior mammograms dated 09/13/2015. BREAST COMPOSITION: The tissue of both breasts is almost entirely fatty. FINDINGS: A square shaped pain marker overlies the upper outer anterior right breast, denoting the fo leslie pain pointed out by the patient. A triangle palpable marker was not placed on the right breast a s the patient is unsure where her provider felt the lump, but based on office notes it was located th ere is no evidence of a new suspicious mass, asymmetry, architectural distortion or calcifications bi laterally, with particular attention to the areas of concern in the right breast. Targeted ultrasound was performed throughout the lateral right breast including the upper outer and l ower outer quadrant. The patient reported extreme focal pain in the 11:00 axis, 6 cm from the nipple in real-time scanning. Overall, throughout the right lateral breast, no suspicious solid or cystic masses seen. There is no evidence of a drainable fluid collection or focal skin thickening. IMPRESSION: ACR BI-RADS CATEGORY 2: BENIGN, TARGETED ULTRASOUND ACR BI-RADS CATEGORY 2: BENIGN Stable bilateral mammograms, without mammographic evidence of malignancy. No targeted sonographic ev idence of malignancy in the area of pain or lump in the right upper outer or lower outer quadrants. Therefore, clinical follow-up is recommended, as biopsy of a clinically suspicious mass should not be precluded by negative imaging. Otherwise recommend routine screening mammography in 1 year. Approximately 10% of breast cancers are not detected with mammography. A negative mammographic report should not delay biopsy if a clinically suggestive mass is present. Pam Spain M.D. ay/:01/04/2018 13:55:00 [facility]: Marisabel MOORE(Mikey)(Dez), [facility] letter sent: Normal 1/2 BI-RADS Code: ACR BI-RADS Category 2: Benign Ultrasound BI-RADS: ACR BI-RADS Category 2: Benign
== END | disposition home or self-care (01) ==
LOC: C.MAMM 08:42
PROVIDERS: ATTEND Neuromusculoskeletal Medicine & OMM
DX: N64.4 Mastodynia (principal)

== ENCOUNTER 2018-01-07 14:16 | Inpatient (IN) | payer BC, OTHER ==
[~2018-01-07] VITALS: Ht 167.6 cm; Wt 99.3 kg
[~2018-01-07 14:16] MED LIST changes: -GABA-112 PO; -MELO-83 PO; -VLTG EXT
[2018-01-07] MEDS ORDERED: KETOROLAC TROMETHAMINE 30 MG/ML VIAL IV STA (14:41)
[2018-01-07] MEDS ORDERED: OPTIRAY 300 IV PRN (15:00)
[2018-01-07 15:09] LABS: BASO % 0.6 %; BASO ABS # 0.03 K/uL (0-0.2); EOS % 1.1 %; EOS ABS # 0.06 K/uL (0-0.5); HEMATOCRIT 41.7 % (37-47); HEMOGLOBIN 14.6 g/dL (12.0-16.0); IG# 0.01 K/uL (0.00-0.02); LYMPH % 32.8 %; LYMPH ABS # 1.78 K/uL (1.2-3.4); MEAN CELL VOLUME 91.4 fL (80-100); MONO % 7.6 %; MONO ABS # 0.41 K/uL (0.11-0.59); NEUT % 57.7 %; NEUT ABS # 3.14 K/uL (1.4-6.5); PLATELET COUNT 225 K/uL (130-400); RED CELL DISTRIBUTION WIDTH CV 13.2 % (11.5-14.5); RED CELL DISTRIBUTION WIDTH SD 43.8 fL (36.4-46.3); WHITE BLOOD COUNT 5.43 K/uL (4.8-10.8)
[2018-01-07 15:12] LABS: ISTAT IONIZED CALCIUM 1.19 mmol/l (1.12-1.32)
[2018-01-07 15:29] LABS: ALBUMIN 4.1 gm/dl (3.4-5.0); CALCIUM 9.2 mg/dl (8.5-10.1); CREATININE 1.02 mg/dl (0.60-1.20); POTASSIUM 3.9 mmol/L (3.5-5.1)
[2018-01-07 15:32] LABS: TOTAL PROTEIN 7.4 gm/dl (6.4-8.2)
--- NOTE | 2018-01-07 15:34 | DIAGNOSTIC IMAGING REPORT ---
ABDOMEN AND PELVIS CT WITH IV CONTRAST CT DOSE: 866.96 mGy.cm HISTORY: Acute right-sided flank pain severe r flank pain TECHNIQUE: Multiaxial CT images of the abdomen and pelvis were performed following the use of intravenous contrast. A dose lowering technique was utilized adhering to the principles of ALARA. COMPARISON STUDY: CT 04/03/2016. FINDINGS: Minimal dependent subsegmental bibasilar atelectasis. Calcified granuloma of the medial segment right middle lobe and inferior segment lesion of. No pneumatosis or pneumoperitoneum imaged inferior cardiac chambers are unremarkable. Prior cholecystectomy. Liver, spleen, pancreas and adrenal glands are within normal limits. Kidneys, ureters are unremarkable without renal calculi or hydronephrosis. 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 Partially decompressed or bladder with mild perivesicular stranding. Indeterminate 10 x 9 mm nodular lesion is seen anterosuperior to left aspect of the urinary bladder lumen, image 355 series 3 which appears new from prior study. Prior hysterectomy. No aortic aneurysm. Mild wall thickening of the sigmoid colon is likely secondary to partial distention. No pericolic inflammatory changes or bowel obstruction. The appendix is not definitively seen and may be surgically absent. Surgical clips adjacent to the lower anterior abdominal wall. Tiny fat filled periumbilical hernia, diastases 19 mm. Bones appear intact. The vertebral disc space narrowing at L5-S1. IMPRESSION: 1. Mild wall thickening of the urinary bladder, possibly related to partial distention. Correlate with urinalysis to exclude cystitis. 2. No renal calculi or hydronephrosis. 3. 10 x 9 mm nodular lesion superior and anterior to the urinary bladder appears new from prior study and may reflect a lymph node or indeterminate lower mesenteric nodule. 4. Prior cholecystectomy and hysterectomy. 5. 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 Electronically signed by: Jesús Aguilar M.D. 01/07/2018 3:33 PM Dictated Date/Time: 01/07/2018 3:24 PM
[2018-01-07 15:50] LABS: INR 0.9 (0.9-1.1)
[2018-01-07] MEDS ORDERED: HYDROmorphone INJ 1 MG/ML SYR IV STA (15:58)
[2018-01-07] MEDS ORDERED: SODIUM CHLORIDE 0.9% 1000ML 2,000 ML IV STA (15:58)
[2018-01-07 16:00] VITALS: BP 125/79; PULSE 78; TEMP 36.7; O2SAT 94
[2018-01-07] MEDS ORDERED: ONDANSETRON INJ 2 MG/ML 2 ML VIAL IV PRN (16:30)
[2018-01-07] MEDS ORDERED: POLYETHYLENE (MIRALAX) 17 GM PACK PO PRN (16:30)
[2018-01-07] MEDS ORDERED: MAGNESIUM HYDROXIDE SUSP 30 ML UDC PO PRN (16:30)
[2018-01-07] MEDS ORDERED: ALUMINUM/MAGNESIUM/SIMETH (MAALOX MAX) 30 ML UDC PO PRN (16:30)
[2018-01-07] MEDS ORDERED: CYCLOBENZAPRINE HCL 10 MG TAB PO PRN (16:30)
--- NOTE | 2018-01-07 16:39 | History and Physical ---
History & Physical Date & Time of Service: Jan 07, 2018 at 16:39 Chief Complaint: Pain In Kidney/Bladder Primary Care Physician: Eliceo Anton D.O. History of Present Illness Source: patient, clinic records, hospital records Patient is a pleasant 57 y/o female with PMHx of reflex sympathetic dystrophy, fibromyalgia, migraines, insomnia, T2DM, HLD, and GERD, who presented to the ED because of RUQ pain radiating to R breast and back x1 week. In ED, liver enzymes were elevated. She notes poor PO intake due to N/V. She has had a cholecystectomy. She was treated for a UTI in November w/ Cipro- UA clean. She denies any Tylenol, drug, or alcohol use. She had a mammogram yesterday, which was ordered by her PCP due to her complaints of R breast pain. It was unremarkable per patient. Patient denies any fever, chills, sweats, lightheadedness, dizziness, vision changes, CP, palpitations, edema, SOB, wheezing, cough, diarrhea, urinary symptoms, melena, numbness/tingling, weakness , muscle/joint pain, anxiety/depression, active bleeding, or new skin discoloration/changes. Past Medical/Surgical History Medical Problems: reflex sympathetic dystrophy fibromyalgia migraines insomnia T2DM HLD GERD Surgical Problems: (1) H/O: hysterectomy (2) History of section (3) History of lumbar laminectomy (4) Hx of cholecystectomy Family History Patient reports no known family medical history. Social History Smoking Status: Never Smoker Alcohol Use: none Drug Use: none Marital Status: Housing status: lives alone Occupational Status: retired Allergies Coded Allergies: Cephalexin (Unverified Allergy, Severe, ANAPHYLAXIS, 07/15/17) Penicillins (Unverified Allergy, Severe, ANAPHYLAXIS, 07/15/17) Sulfa Antibiotics (Unverified Allergy, Severe, ANAPHYLAXIS, 07/15/17) Gabapentin (Verified Allergy, Mild, HIVES, 07/15/17) Pregabalin (Verified Allergy, Mild, HIVES, 07/15/17) Latex (Unverified Allergy, Unknown, rash, 07/15/17) Home Medications Scheduled Atorvastatin (Lipitor), 20 MG PO QAM Gabapentin (Neurontin), 100 MG PO DAILY Meloxicam (Meloxicam), 15 MG PO DAILY Metformin Hcl (Glucophage), 1,000 MG PO BID Omeprazole (Prilosec), 40 MG PO DAILY Oxycodone Hcl (Oxycodone Hcl Er), 10 MG PO DAILYBB Topiramate (Topamax), 50 MG PO BID Scheduled PRN Cyclobenzaprine Hcl (Flexeril), 10 MG PO HS PRN for Muscle Spasm Physical Exam Vital Signs Date Time Temp Pulse Resp B/P (MAP) Pulse Ox O2 Delivery O2 Flow Rate FiO2 01/07/18 14:24 36.7 85 20 145/85 94 Room Air General Appearance: no apparent distress, + obese Head: normocephalic, atraumatic Eyes: normal inspection, PERRL ENT: hearing grossly normal Neck: supple Respiratory/Chest: lungs clear, no respiratory distress, no accessory muscle use Cardiovascular: regular rate, rhythm Abdomen/GI: normal bowel sounds, soft, + tenderness (ttp of RUQ), + guarding Back: normal inspection Extremities/Musculoskelatal: no calf tenderness, no pedal edema Neurologic/Psych: alert, normal mood/affect, oriented x 3 Skin: normal color, warm/dry, no rash Diagnostics Laboratory Results Results Past 24 Hours Test 01/07/18 14:35 01/07/18 14:53 01/07/18 14:57 01/07/18 16:24 Range/Units Urine Color DK YELLOW Urine Appearance CLEAR CLEAR Urine pH 6.0 4.5-7.5 Urine Specific [place] 1.025 1.000-1.030 Urine Protein NEG NEG Urine Glucose (UA) NEG NEG Urine Ketones NEG NEG Urine Occult Blood NEG NEG Urine Nitrite NEG NEG Urine Bilirubin NEG NEG Urine Urobilinogen NEG NEG Urine Leukocyte Esterase NEG NEG Urine WBC (Auto) 1-5 0-5 /hpf Urine RBC (Auto) 0-4 0-4 /hpf Urine Hyaline Casts (Auto) 1-5 0-5 /lpf Urine Epithelial Cells (Auto) 20-30 0-5 /lpf Urine Bacteria (Auto) NEG NEG Urine Test NEG NEG White Blood Count 5.43 4.8-10.8 K/uL Red Blood Count 4.56 4.2-5.4 M/uL Hemoglobin 14.6 12.0-16.0 g/dL Hematocrit 41.7 37-47 % Mean Corpuscular Volume 91.4 80-100 fL Mean Corpuscular Hemoglobin 32.0 25-34 pg Mean Corpuscular Hemoglobin Concent 35.0 32-36 g/dl Platelet Count 225 130-400 K/uL Mean Platelet Volume 9.0 7.4-10.4 fL Neutrophils (%) (Auto) 57.7 % Lymphocytes (%) (Auto) 32.8 % Monocytes (%) (Auto) 7.6 % Eosinophils (%) (Auto) 1.1 % Basophils (%) (Auto) 0.6 % Neutrophils # (Auto) 3.14 1.4-6.5 K/uL Lymphocytes # (Auto) 1.78 1.2-3.4 K/uL Monocytes # (Auto) 0.41 0.11-0.59 K/uL Eosinophils # (Auto) 0.06 0-0.5 K/uL Basophils # (Auto) 0.03 0-0.2 K/uL RDW Standard Deviation 43.8 36.4-46.3 fL RDW Coefficient of Variation 13.2 11.5-14.5 % Immature Granulocyte % (Auto) 0.2 % Immature Granulocyte # (Auto) 0.01 0.00-0.02 K/uL Prothrombin Time 9.9 9.0-12.0 SECONDS Prothromb Time International Ratio 0.9 0.9-1.1 Sodium Level 138 136-145 mmol/L Potassium Level 3.9 3.5-5.1 mmol/L Chloride Level 106 98-107 mmol/L Carbon Dioxide Level 25 21-32 mmol/L Anion Gap 7.0 18.0 16-25 mmol/L Blood Urea Nitrogen 21 7-18 mg/dl Creatinine 1.02 0.60-1.20 mg/dl Est Creatinine Clear Calc Drug Dose 74.8 ml/min Estimated GFR () 71.7 Estimated GFR (Non- 61.9 BUN/Creatinine Ratio 20.5 10-20 Random Glucose 136 70-99 mg/dl Calcium Level 9.2 8.5-10.1 mg/dl Total Bilirubin 1.1 0.2-1 mg/dl Direct Bilirubin 0.4 0-0.2 mg/dl Aspartate Amino Transf (AST/SGOT) 470 15-37 U/L Alanine Aminotransferase (ALT/SGPT) 242 12-78 U/L Alkaline Phosphatase 133 45-117 U/L Total Protein 7.4 6.4-8.2 gm/dl Albumin 4.1 3.4-5.0 gm/dl Lipase 179 73-393 U/L Bedside Hemoglobin 14.3 12.0-16.0 g/dl Bedside Hematocrit 42 37-47 % Bedside Sodium 140 135-144 mEq/L Bedside Potassium 4.0 3.3-5.0 mEq/L Bedside Chloride 101 101-112 mEq/L Bedside Total CO2 25 24-31 mEq/l Bedside Blood Urea Nitrogen 23 7-18 mg/dl Bedside Creatinine 1.0 0.6-1.3 mg/dl Bedside Glucose (other) 140 70-99 mg/dl Bedside Ionized Calcium (Ezra) 1.19 1.12-1.32 mmol/l Diagnostic Radiology ABDOMEN AND PELVIS CT WITH IV CONTRAST CT DOSE: 866.96 mGy.cm HISTORY: Acute right-sided flank pain severe r flank pain TECHNIQUE: Multiaxial CT images of the abdomen and pelvis were performed following the use of intravenous contrast. A dose lowering technique was utilized adhering to the principles of ALARA. COMPARISON STUDY: CT 04/03/2016. FINDINGS: Minimal dependent subsegmental bibasilar atelectasis. Calcified granuloma of the medial segment right middle lobe and inferior segment lesion of. No pneumatosis or pneumoperitoneum imaged inferior cardiac chambers are unremarkable. Prior cholecystectomy. Liver, spleen, pancreas and adrenal glands are within normal limits. Kidneys, ureters are unremarkable without renal calculi or hydronephrosis. 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 Partially decompressed or bladder with mild perivesicular stranding. Indeterminate 10 x 9 mm nodular lesion is seen anterosuperior to left aspect of the urinary bladder lumen, image 355 series 3 which appears new from prior study. Prior hysterectomy. No aortic aneurysm. Mild wall thickening of the sigmoid colon is likely secondary to partial distention. No pericolic inflammatory changes or bowel obstruction. The appendix is not definitively seen and may be surgically absent. Surgical clips adjacent to the lower anterior abdominal wall. Tiny fat filled periumbilical hernia, diastases 19 mm. Bones appear intact. The vertebral disc space narrowing at L5-S1. IMPRESSION: 1. Mild wall thickening of the urinary bladder, possibly related to partial distention. Correlate with urinalysis to exclude cystitis. 2. No renal calculi or hydronephrosis. 3. 10 x 9 mm nodular lesion superior and anterior to the urinary bladder appears new from prior study and may reflect a lymph node or indeterminate lower mesenteric nodule. 4. Prior cholecystectomy and hysterectomy. 5. 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 Electronically signed by: Jesús Aguilar M.D. 01/07/2018 3:33 PM Dictated Date/Time: 01/07/2018 3:24 PM The status of this report is Signed. Draft = Not yet reviewed or approved by Radiologist. Signed = Reviewed and approved by Radiologist. Impression Assessment and Plan Patient is a pleasant 57 y/o female with PMHx of reflex sympathetic dystrophy, fibromyalgia, migraines, insomnia, T2DM, HLD, and GERD, who presented to the ED because of RUQ pain radiating to R breast and back x1 week. RUQ pain, elevated LFTs: - Admit to med/surg - IV NSS @ 100 ml/hr due to poor PO w/ some N/V - Tylenol level < 2 - PT/INR WNL - Acute hepatitis panel pending - Obtain RUQ ultrasound - Hold Lipitor - Follow LFTs - Consult GI, appreciate recommendations T2DM: - Hold Metformin 1000 mg BID - BSG ACHS and ISS HLD: Hold Lipitor 20 mg daily as above Reflex sympathetic dystrophy, fibromyalgia: Continue Flexeril 10 mg HS PRN, Gabapentin 100 mg daily, Meloxicam 15 mg daily, Oxycodone 10 mg daily Migraines: Continue Topamax 50 mg BID Insomnia: Has Ambien PRN- states she rarely uses, will hold for now GERD: Protonix daily while inpatient- resume Prilosec at discharge DVT prophylaxis: Lovenox SQ daily Code status: LEVEL I, FULL Dispo: From home- no discharge needs anticipated \ i personally examined pt and verified all rm points w T [place] PAC R sided flank pain, nausea, vomiting vitals and labs noted. fatigued. no pallor or icterus hepatitis - ?etiology - did take some excedrin (but relates fairly reliably about 12 pills total over about 4 days) - check APAP level for completeness, viral hepatitis panel (did have fresh vegetables from [facility]), RUQ US. if etiology not clear, numbers not improving - then consult GI suspect R sided pain so significant because this is the same side as her pain from RSD - so likely liver related pain is spiking RSD otherwise as above Resuscitation Status LEVEL I, FULL VTE Prophylaxis Will order VTE Prophylaxis: Yes
[2018-01-07] MEDS ORDERED: GLUCAGON FOR INJ 1 MG VIAL SQ PRN (16:45)
[2018-01-07] MEDS ORDERED: GLUCOSE 40% GEL 15 GM TUBE PO PRN (16:45)
[2018-01-07] MEDS ORDERED: GLUCOSE 10 TABS/TUBE PO PRN (16:45)
[2018-01-07] MEDS ORDERED: DEXTROSE 50% 50 ML SYR IV PRN (16:45)
[2018-01-07] MEDS ORDERED: GABA-112 PO (17:01)
[2018-01-07] MEDS ORDERED: MELO-83 PO (17:24)
--- NOTE | 2018-01-07 17:41 | EMERGENCY ROOM VISIT NOTE ---
History Report prepared by Tessy: Lucero Pickens Under the Supervision of: Dr. Justin Reed D.O. First contact with patient: 14:31 Chief Complaint: URINARY SYMPTOMS Stated Complaint: PAIN IN KIDNEY/BLADDER History of Present Illness The patient is a 57 year old female who presents to the Emergency Room with complaints of worsening lower back pain beginning a week ago. She described her pain as a sharp and rates it as a 9/10. She denies any modifying or worsening factors. She reports nausea and odorous urine. The patient was diagnosed with a bladder infection 8 weeks ago. The patient went through a full round of Cipro. Patient has pain in her right back radiates around to her right upper quadrant. She does have a previous history of cholecystectomy. Pt denies headache, change in vision, fevers, chest pain, shortness of breath, nausea, vomiting, diarrhea, pain with urination, and melena. The patient has a history of fibromyalgia and RSD. Source of History: patient Onset: a week ago Position: back (lower) Quality: sharp Timing: worsening Associated Symptoms: + back pain, No fevers, No headache, No chest pain, No SOB, No nausea, No vomiting, No diarrhea, No urinary symptoms Review of Systems See HPI for pertinent positives & negatives. A total of 10 systems reviewed and were otherwise negative. Past Medical & Surgical Medical Problems: (1) Anxiety disorder (2) Barretts esophagus (3) Depressive disorder (4) Diabetes (5) Dyslipidemia (6) Elevated LFTs (7) Fibromyalgia (8) Gastroesophageal reflux disease (9) Hypertension (10) Left ureteral calculus (11) Reflex sympathetic dystrophy (12) Renal colic on left side (13) RSD (reflex sympathetic dystrophy) (14) Sleep apnea (15) Syncopal episodes Surgical Problems: (1) H/O: hysterectomy (2) History of section (3) History of lumbar laminectomy (4) Hx of cholecystectomy Family History Patient reports no known family medical history. Social History Smoking Status: Never Smoker Drug Use: none Marital Status: Housing Status: lives with family Occupation Status: retired Current/Historical Medications Scheduled Atorvastatin (Lipitor), 20 MG PO QAM Gabapentin (Neurontin), 100 MG PO DAILY Meloxicam (Meloxicam), 15 MG PO DAILY Metformin Hcl (Glucophage), 1,000 MG PO BID Omeprazole (Prilosec), 40 MG PO DAILY Oxycodone Hcl (Oxycodone Hcl Er), 10 MG PO DAILYBB Topiramate (Topamax), 50 MG PO BID Scheduled PRN Cyclobenzaprine Hcl (Flexeril), 10 MG PO HS PRN for Muscle Spasm Allergies Coded Allergies: Cephalexin (Unverified Allergy, Severe, ANAPHYLAXIS, 07/15/17) Penicillins (Unverified Allergy, Severe, ANAPHYLAXIS, 07/15/17) Sulfa Antibiotics (Unverified Allergy, Severe, ANAPHYLAXIS, 07/15/17) Gabapentin (Verified Allergy, Mild, HIVES, 07/15/17) Pregabalin (Verified Allergy, Mild, HIVES, 07/15/17) Latex (Unverified Allergy, Unknown, rash, 07/15/17) Physical Exam Vital Signs Date Time Temp Pulse Resp B/P (MAP) Pulse Ox O2 Delivery O2 Flow Rate FiO2 01/07/18 17:11 76 18 137/80 99 Room Air 01/07/18 16:43 72 18 125/66 96 Room Air 01/07/18 14:24 36.7 85 20 145/85 94 Room Air Physical Exam GENERAL: Sitting up in bed, alert, well appearing, holding right flank/right upper quadrant, no distress, non-toxic EYE EXAM: normal conjunctiva. OROPHARYNX: no exudate, no erythema, lips, buccal mucosa, and tongue normal and mucous membranes are moist NECK: supple, no nuchal rigidity, no adenopathy, non-tender LUNGS: Clear to auscultation. Normal chest wall mechanics HEART: no murmurs, S1 normal and S2 normal ABDOMEN: abdomen soft, non-tender, normo-active bowel sounds, no masses, no rebound or guarding. BACK: Severe acute reproducible tenderness in right back tracking to right flank. Back is symmetrical on inspection and there is no deformity. SKIN: no rashes and no bruising UPPER EXTREMITIES: upper extremities are grossly normal. LOWER EXTREMITIES: No pitting edema. NEURO EXAM: Normal sensorium, cranial nerves II-XII grossly intact, normal speech, no gross weakness of arms, flexion extension of the hips, knees and ankles with no new deficit but patient Medical Decision & Procedures ER Provider Diagnostic Interpretation: Radiology results as stated below per my review and the radiologist's interpretation: ABDOMEN AND PELVIS CT WITH IV CONTRAST FINDINGS: Minimal dependent subsegmental bibasilar atelectasis. Calcified granuloma of the medial segment right middle lobe and inferior segment lesion of. No pneumatosis or pneumoperitoneum imaged inferior cardiac chambers are unremarkable. Prior cholecystectomy. Liver, spleen, pancreas and adrenal glands are within normal limits. Kidneys, ureters are unremarkable without renal calculi or hydronephrosis. 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 Partially decompressed or bladder with mild perivesicular stranding. Indeterminate 10 x 9 mm nodular lesion is seen anterosuperior to left aspect of the urinary bladder lumen, image 355 series 3 which appears new from prior study. Prior hysterectomy. No aortic aneurysm. Mild wall thickening of the sigmoid colon is likely secondary to partial distention. No pericolic inflammatory changes or bowel obstruction. The appendix is not definitively seen and may be surgically absent. Surgical clips adjacent to the lower anterior abdominal wall. Tiny fat filled periumbilical hernia, diastases 19 mm. Bones appear intact. The vertebral disc space narrowing at L5-S1. IMPRESSION: 1. Mild wall thickening of the urinary bladder, possibly related to partial distention. Correlate with urinalysis to exclude cystitis. 2. No renal calculi or hydronephrosis. 3. 10 x 9 mm nodular lesion superior and anterior to the urinary bladder appears new from prior study and may reflect a lymph node or indeterminate lower mesenteric nodule. 4. Prior cholecystectomy and hysterectomy. 5. 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 Electronically signed by: Jesús Aguilar M.D. Laboratory Results 01/07/18 14:53 Red Blood Count 4.56, Mean Corpuscular Volume 91.4, Mean Corpuscular Hemoglobin 32.0, Mean Corpuscular Hemoglobin Concent 35.0, Mean Platelet Volume 9.0, Neutrophils (%) (Auto) 57.7, Lymphocytes (%) (Auto) 32.8, Monocytes (%) (Auto) 7.6, Eosinophils (%) (Auto) 1.1, Basophils (%) (Auto) 0.6, Neutrophils # (Auto) 3.14, Lymphocytes # (Auto) 1.78, Monocytes # (Auto) 0.41, Eosinophils # (Auto) 0.06, Basophils # (Auto) 0.03 01/07/18 14:53 Test 01/07/18 14:35 01/07/18 14:53 01/07/18 14:57 Urine Color DK YELLOW Urine Appearance CLEAR (CLEAR) Urine pH 6.0 (4.5-7.5) Urine Specific [place] 1.025 (1.000-1.030) Urine Protein NEG (NEG) Urine Glucose (UA) NEG (NEG) Urine Ketones NEG (NEG) Urine Occult Blood NEG (NEG) Urine Nitrite NEG (NEG) Urine Bilirubin NEG (NEG) Urine Urobilinogen NEG (NEG) Urine Leukocyte Esterase NEG (NEG) Urine WBC (Auto) 1-5 /hpf (0-5) Urine RBC (Auto) 0-4 /hpf (0-4) Urine Hyaline Casts (Auto) 1-5 /lpf (0-5) Urine Epithelial Cells (Auto) 20-30 /lpf (0-5) Urine Bacteria (Auto) NEG (NEG) Urine Test NEG (NEG) White Blood Count 5.43 K/uL (4.8-10.8) Red Blood Count 4.56 M/uL (4.2-5.4) Hemoglobin 14.6 g/dL (12.0-16.0) Hematocrit 41.7 % (37-47) Mean Corpuscular Volume 91.4 fL (80-100) Mean Corpuscular Hemoglobin 32.0 pg (25-34) Mean Corpuscular Hemoglobin Concent 35.0 g/dl (32-36) Platelet Count 225 K/uL (130-400) Mean Platelet Volume 9.0 fL (7.4-10.4) Neutrophils (%) (Auto) 57.7 % Lymphocytes (%) (Auto) 32.8 % Monocytes (%) (Auto) 7.6 % Eosinophils (%) (Auto) 1.1 % Basophils (%) (Auto) 0.6 % Neutrophils # (Auto) 3.14 K/uL (1.4-6.5) Lymphocytes # (Auto) 1.78 K/uL (1.2-3.4) Monocytes # (Auto) 0.41 K/uL (0.11-0.59) Eosinophils # (Auto) 0.06 K/uL (0-0.5) Basophils # (Auto) 0.03 K/uL (0-0.2) RDW Standard Deviation 43.8 fL (36.4-46.3) RDW Coefficient of Variation 13.2 % (11.5-14.5) Immature Granulocyte % (Auto) 0.2 % Immature Granulocyte # (Auto) 0.01 K/uL (0.00-0.02) Prothrombin Time 9.9 SECONDS (9.0-12.0) Prothromb Time International Ratio 0.9 (0.9-1.1) Est Creatinine Clear Calc Drug Dose 74.8 ml/min Estimated GFR () 71.7 Estimated GFR (Non- 61.9 BUN/Creatinine Ratio 20.5 (10-20) Calcium Level 9.2 mg/dl (8.5-10.1) Total Bilirubin 1.1 mg/dl (0.2-1) Direct Bilirubin 0.4 mg/dl (0-0.2) Aspartate Amino Transf (AST/SGOT) 470 U/L (15-37) Alanine Aminotransferase (ALT/SGPT) 242 U/L (12-78) Alkaline Phosphatase 133 U/L (45-117) Total Protein 7.4 gm/dl (6.4-8.2) Albumin 4.1 gm/dl (3.4-5.0) Lipase 179 U/L (73-393) Acetaminophen Level < 2 ug/ml (10-30) Bedside Hemoglobin 14.3 g/dl (12.0-16.0) Bedside Hematocrit 42 % (37-47) Bedside Sodium 140 mEq/L (135-144) Bedside Potassium 4.0 mEq/L (3.3-5.0) Bedside Chloride 101 mEq/L (101-112) Bedside Total CO2 25 mEq/l (24-31) Anion Gap 18.0 mmol/L (16-25) Bedside Blood Urea Nitrogen 23 mg/dl (7-18) Bedside Creatinine 1.0 mg/dl (0.6-1.3) Bedside Glucose (other) 140 mg/dl (70-99) Bedside Ionized Calcium (Ezra) 1.19 mmol/l (1.12-1.32) Laboratory results per my review. Medications Administered Medications (Trade) Dose Ordered Sig/Shruthi Route Start Time Stop Time Status Last Admin Dose Admin Ketorolac Tromethamine (Toradol Inj) 30 mg NOW STAT IV 01/07/18 14:41 01/07/18 14:42 DC 01/07/18 15:10 30 MG Sodium Chloride 2,000 ml @ 999 mls/hr Q2H1M STAT IV 01/07/18 15:58 01/07/18 17:58 01/07/18 15:58 999 MLS/HR Hydromorphone HCl (Dilaudid Inj) 1 mg NOW STAT IV 01/07/18 15:58 01/07/18 16:00 DC 01/07/18 16:47 1 MG Ondansetron HCl (Zofran Inj) 4 mg Q6H PRN IV 01/07/18 16:30 02/06/18 16:29 01/07/18 16:47 4 MG Diphenhydramine HCl (Benadryl Cap) 25 mg NOW ONCE PO 01/07/18 17:15 01/07/18 17:16 DC 01/07/18 17:14 25 MG ED Course ED COURSE: Vital signs were reviewed and showed normal The patients medical record was reviewed The above diagnostic studies were performed and reviewed. ED treatments and interventions as stated above. 1433: The patient was evaluated in room B3B. A complete history and physical examination was performed. 1441: Ordered Toradol Inj 30 mg IV. 1545: I reviewed the patient's case with Dr. Oliver. He will evaluate the patient for further management. 1552: I updated the patient on her test results. She denies taking any Tylenol. She also denies any recent travel or trips. 1558: Ordered Dilaudid Inj 1 mg IV, Sodium Chloride 2000 ml @ 999 mls/hr IV. 1600: Upon reevaluation, the patient is resting comfortably.I discussed my findings with the patient and she understands and agrees with the treatment plan. Based on the patients age, coexisting illnesses, exam and lab findings the decision to treat as an inpatient was made. The patient remained stable while under my care. The patient will be evaluated for further management. Medical Decision Differential diagnoses includes but is not limited to lumbar radiculopathy, kidney stone, muscle strain, facture, cauda equina, mass, and disc herniation. Patient is a 57-year-old female who presents the ER for right flank pain wrapping around her right upper quadrant which is been present intermittently for the past 3 weeks and significant worsening over the past week. Labs were obtained and CBC along with BMP was unremarkable. Bilirubin was elevated along with LFTs. Lipase is normal. She denied taking Tylenol. Tylenol was negative. Denies any recent GI illnesses or travel. CT of the abdomen pelvis is unremarkable. Discuss with GI. Uncertain of the true cause of the transaminitis at this time but will bring her in. GI did question performing an MRCP and they will evaluate her as needed. She was given IV fluids and IV narcotics while in the ER. Medication Reconcilliation Current Medication List: was personally reviewed by me Blood Pressure Screening Patient's blood pressure: Normal blood pressure Consults Time Called: [phone] Consulting Physician: Dr. Oliver Returned Call: [phone] I reviewed the patient's case with Dr. Oliver. He will evaluate the patient for further management. Impression Primary Impression: Hepatitis Additional Impression: Flank pain Scribe Attestation The scribe's documentation has been prepared under my direction and personally reviewed by me in its entirety. I confirm that the note above accurately reflects all work, treatment, procedures, and medical decision making performed by me. Departure Information Dispostion Being Evaluated By Hospitalist Referrals Eliceo Anton D.ONavin (PCP) Patient Instructions My [facility] Problem Qualifiers
--- NOTE | 2018-01-07 17:46 | DIAGNOSTIC IMAGING REPORT ---
ABDOMINAL ULTRASOUND, RIGHT UPPER QUADRANT HISTORY: elevated LFTs. COMPARISON: Abdomen and pelvis CT 01/07/2018. FINDINGS: Pancreas: The pancreatic tail is obscured by overlying bowel gas. The remaining portions of the pancreas are within normal limits. Liver: Unremarkable. Gallbladder: The gallbladder is surgically absent. CBD: 7 mm. Right kidney: No hydronephrosis. Duplicated right renal collecting system is again noted. IMPRESSION: No significant abnormality identified within the right upper quadrant. Prior cholecystectomy. Electronically signed by: Jordan Meeks M.D. 01/07/2018 5:45 PM Dictated Date/Time: 01/07/2018 5:44 PM
[2018-01-07 18:11] LABS: HEP C IGG 13 YRS+OLDER_RFLX NEG (NEG)
[2018-01-07 18:44] VITALS: BP 125/79; PULSE 78; TEMP 36.7; Ht 167.6 cm; Wt 99.3 kg
[2018-01-07] MEDS: SODIUM CHLORIDE 0.9% 1000ML 1,000 ML IV SCH (19:12)
[2018-01-07] MEDS: ENOXAPARIN 40 MG/0.4 ML SYR SQ SCH (20:02)
[2018-01-07] MEDS ORDERED: INSULIN ASPART 100 UNITS/ML 3 ML PEN SC SCH (21:00)
[2018-01-07] MEDS: TOPIRAMATE 50 MG TAB PO SCH (21:45)
[2018-01-07] MEDS ORDERED: NURSING VERBAL MED ORDER ONE (22:00)
[2018-01-07] MEDS ORDERED: MoRPHine SULFATE 4 MG/ML 1 ML CARP\\VIAL IV PRN (22:15)
[2018-01-07] MEDS ORDERED: MoRPHine SULFATE 2 MG/ML CARP IV PRN (22:15)
[2018-01-07 23:11] VITALS: BP 106/69; PULSE 68; TEMP 36.7; O2SAT 95
[2018-01-07] MEDS: HYDROmorphone INJ 2 MG/ML SYR/VIAL IV PRN (23:46)
[2018-01-08] VITALS (8 sets, daily range): BP systolic 108–129; BP diastolic 70–76; PULSE 68–88; TEMP 36.7–37.2; O2SAT 93–96
[2018-01-08] MEDS ORDERED: NURSING DECISION MEDICATION ORDER SCH ×2 (01:30→23:15)
[2018-01-08] MEDS: OXYCODONE HCL 10 MG TABCR (OXYCONTIN) PO SCH (05:18)
[2018-01-08] MEDS: SODIUM CHLORIDE 0.9% 1000ML 1,000 ML IV SCH ×2 (05:28→17:09)
[2018-01-08] MEDS: INSULIN ASPART 100 UNITS/ML 3 ML PEN SC SCH ×3 (05:32→18:00)
[2018-01-08 07:07] LABS: CALCIUM 8.5 mg/dl (8.5-10.1); CREATININE 1.01 mg/dl (0.60-1.20); POTASSIUM 4.1 mmol/L (3.5-5.1)
[2018-01-08 07:13] LABS: TOTAL PROTEIN 5.6 gm/dl (6.4-8.2)
[2018-01-08] MEDS: HYDROmorphone INJ 2 MG/ML SYR/VIAL IV PRN (07:48)
[2018-01-08] MEDS: MELOXICAM 7.5 MG TAB PO SCH (09:00)
[2018-01-08] MEDS: PANTOprazole SOD 40 MG TAB PO SCH (09:00)
[2018-01-08] MEDS: TOPIRAMATE 50 MG TAB PO SCH ×2 (09:00→22:01)
--- NOTE | 2018-01-08 11:50 | Gastrointestinal Consultation ---
Gastrointestinal Consultation Date of Consultation: Jan 08, 2018 Attending Physician: Mimi Wrihgt Consulting Physician: Foreign Guthrie History of Present Illness Patient is a 57 year old female with RUQ and back pain for several days. Pain is similar to when she was diagnosed with "UTI". Treatment did not fully resolve it. Thought this might be from RSD as here pain was on the right side of body, where RSD is. Severe pain brought her in. Pain at the RUQ and back + right shoulders. Some post prandial nausea. No fever. The pain syndrome has happened a few times but not as severe now. Still in pain when the Dilaudid wears off. She has not taken any new medications, did not have viral prodrome, no recent travel, was never told that she had abnormal liver tests, no history of fatty liver. Past Medical/Surgical History Medical Problems: (1) Contusion of right arm Status: Acute (2) Dehydration Status: Acute (3) Diarrhea Status: Acute (4) Fall Status: Acute (5) Flank pain Status: Acute (6) Head trauma Status: Acute (7) Hematuria Status: Acute (8) Hepatitis Status: Acute (9) Left flank pain Status: Acute (10) Migraine Status: Acute (11) Neck muscle spasm Status: Acute (12) Renal colic Status: Acute (13) Syncope Status: Acute (14) Vomiting Status: Acute Family History Patient reports no known family medical history. Social History Smoking Status: Former Smoker Drug Use: none Marital Status: Housing Status: lives with family Occupation Status: retired Allergies Coded Allergies: Cephalexin (Unverified Allergy, Severe, ANAPHYLAXIS, 07/15/17) Penicillins (Unverified Allergy, Severe, ANAPHYLAXIS, 07/15/17) Sulfa Antibiotics (Unverified Allergy, Severe, ANAPHYLAXIS, 07/15/17) Gabapentin (Verified Allergy, Mild, HIVES, 07/15/17) Pregabalin (Verified Allergy, Mild, HIVES, 07/15/17) Latex (Unverified Allergy, Unknown, rash, 07/15/17) Current Medications Home Meds and Scripts Medications Dose Route/Sig Max Daily Dose Days Date Category Neurontin (Gabapentin) 100 Mg Cap 100 Mg PO DAILY 01/07/18 Reported Meloxicam 15 Mg Tab 15 Mg PO DAILY 07/15/17 Reported Oxycodone Hcl Er (Oxycodone Hcl) 10 Mg Tab Mg PO DAILYBB 05/12/17 Reported Prilosec (Omeprazole) 40 Mg Cap 40 Mg PO DAILY 05/12/17 Reported Glucophage (Metformin Hcl) 500 Mg Tab 1,000 Mg PO BID 04/03/16 Reported Topamax (Topiramate) 50 Mg Tab 50 Mg PO BID 04/03/16 Reported Flexeril (Cyclobenzaprine Hcl) 10 Mg Tab 10 Mg PO HS PRN 04/03/16 Reported Lipitor (Atorvastatin Calcium) 20 Mg Tab 20 Mg PO QAM 04/03/16 Reported Review of Systems Constitutional: No fever, No chills Abdomen: + pain (several day sof pain, similar to when whe was diagnosed with "UTI", not get better), + nausea, No diarrhea, No constipation, No GI bleeding, No jaundice Female : No dysuria, No hematuria Heme: No abnormal bleeding/bruising Physical Exam Date Time Temp Pulse Resp B/P (MAP) Pulse Ox O2 Delivery O2 Flow Rate FiO2 01/08/18 07:45 Room Air 01/08/18 07:14 36.8 68 16 108/70 (83) 94 Room Air 01/07/18 23:44 Room Air 01/07/18 23:11 36.7 68 16 106/69 (81) 95 Room Air 01/07/18 18:44 36.7 78 16 125/79 Room Air 01/07/18 18:00 Room Air 01/07/18 17:11 76 18 137/80 99 Room Air 01/07/18 16:43 72 18 125/66 96 Room Air 01/07/18 16:00 36.7 78 16 125/79 (94) 94 Room Air 01/07/18 14:24 36.7 85 20 145/85 94 Room Air General Appearance: + mild distress, + obese Eyes: normal inspection ENT: normal ENT inspection, pharynx normal Neck: supple, no adenopathy, no JVD Respiratory/Chest: chest non-tender, normal breath sounds Cardiovascular: regular rate, rhythm, no murmur Abdomen: + tenderness (RUQ, tender liver) Extremities: non-tender, normal inspection, no pedal edema Neurologic/Psych: alert, normal mood/affect Skin: normal color, no jaundice, no rash Laboratory Results Last 24 Hours Test 01/07/18 14:35 01/07/18 14:53 01/07/18 14:57 01/07/18 18:15 Urine Color DK YELLOW Urine Appearance CLEAR Urine pH 6.0 Urine Specific [place] 1.025 Urine Protein NEG Urine Glucose (UA) NEG Urine Ketones NEG Urine Occult Blood NEG Urine Nitrite NEG Urine Bilirubin NEG Urine Urobilinogen NEG Urine Leukocyte Esterase NEG Urine WBC (Auto) 1-5 /hpf Urine RBC (Auto) 0-4 /hpf Urine Hyaline Casts (Auto) 1-5 /lpf Urine Epithelial Cells (Auto) 20-30 /lpf Urine Bacteria (Auto) NEG Urine Test NEG White Blood Count 5.43 K/uL Red Blood Count 4.56 M/uL Hemoglobin 14.6 g/dL Hematocrit 41.7 % Mean Corpuscular Volume 91.4 fL Mean Corpuscular Hemoglobin 32.0 pg Mean Corpuscular Hemoglobin Concent 35.0 g/dl Platelet Count 225 K/uL Mean Platelet Volume 9.0 fL Neutrophils (%) (Auto) 57.7 % Lymphocytes (%) (Auto) 32.8 % Monocytes (%) (Auto) 7.6 % Eosinophils (%) (Auto) 1.1 % Basophils (%) (Auto) 0.6 % Neutrophils # (Auto) 3.14 K/uL Lymphocytes # (Auto) 1.78 K/uL Monocytes # (Auto) 0.41 K/uL Eosinophils # (Auto) 0.06 K/uL Basophils # (Auto) 0.03 K/uL RDW Standard Deviation 43.8 fL RDW Coefficient of Variation 13.2 % Immature Granulocyte % (Auto) 0.2 % Immature Granulocyte # (Auto) 0.01 K/uL Prothrombin Time 9.9 SECONDS Prothromb Time International Ratio 0.9 Sodium Level 138 mmol/L Potassium Level 3.9 mmol/L Chloride Level 106 mmol/L Carbon Dioxide Level 25 mmol/L Anion Gap 7.0 mmol/L 18.0 mmol/L Blood Urea Nitrogen 21 mg/dl Creatinine 1.02 mg/dl Est Creatinine Clear Calc Drug Dose 74.8 ml/min Estimated GFR () 71.7 Estimated GFR (Non- 61.9 BUN/Creatinine Ratio 20.5 Random Glucose 136 mg/dl Calcium Level 9.2 mg/dl Total Bilirubin 1.1 mg/dl Direct Bilirubin 0.4 mg/dl Aspartate Amino Transf (AST/SGOT) 470 U/L Alanine Aminotransferase (ALT/SGPT) 242 U/L Alkaline Phosphatase 133 U/L Total Protein 7.4 gm/dl Albumin 4.1 gm/dl Lipase 179 U/L Acetaminophen Level < 2 ug/ml Hepatitis B Surface Antigen NEG Hepatitis C Antibody NEG Bedside Hemoglobin 14.3 g/dl Bedside Hematocrit 42 % Bedside Sodium 140 mEq/L Bedside Potassium 4.0 mEq/L Bedside Chloride 101 mEq/L Bedside Total CO2 25 mEq/l Bedside Blood Urea Nitrogen 23 mg/dl Bedside Creatinine 1.0 mg/dl Bedside Glucose (other) 140 mg/dl Bedside Ionized Calcium (Ezra) 1.19 mmol/l Urine Opiates Screen POS Urine Methadone, Qualitative NEG Urine Barbiturates NEG Urine Phencyclidine (PCP) Level NEG Ur Amphetamine/Methamphetamine NEG MDMA (Ecstasy) Screen NEG Urine Benzodiazepines Screen NEG Urine Cocaine Metabolite NEG Urine Marijuana (THC) NEG Test 01/07/18 18:29 01/07/18 20:17 01/07/18 20:20 01/08/18 05:31 Bedside Glucose 117 mg/dl 138 mg/dl 136 mg/dl Acetaminophen Level < 2 ug/ml Test 01/08/18 06:25 Sodium Level 141 mmol/L Potassium Level 4.1 mmol/L Chloride Level 111 mmol/L Carbon Dioxide Level 26 mmol/L Anion Gap 5.0 mmol/L Blood Urea Nitrogen 19 mg/dl Creatinine 1.01 mg/dl Est Creatinine Clear Calc Drug Dose 74.8 ml/min Estimated GFR () 72.6 Estimated GFR (Non- 62.6 BUN/Creatinine Ratio 18.5 Random Glucose 139 mg/dl Calcium Level 8.5 mg/dl Total Bilirubin 0.9 mg/dl Direct Bilirubin 0.3 mg/dl Aspartate Amino Transf (AST/SGOT) 589 U/L Alanine Aminotransferase (ALT/SGPT) 544 U/L Alkaline Phosphatase 128 U/L Total Protein 5.6 gm/dl Albumin 3.0 gm/dl Impression Patient is a 57 year old female with persistent abdominal pain and increasing transaminases, no jaundice. This pain syndrome was there before when she was given a diagnosis of bladder infection, but did not fully go away. Mild post prandial symptoms. Concern for intermittent biliary obstruction even though the imaging studies do not show any pathology. Contemplated doing an MRI, but if negative will not change the plan. No pancreatic enzyme abnormality yet. Told her that I have an 80% suspicion that there is stone/sludge in CBD not picked up on imaging. Her story and exam can go with it. Her history of RSD and fibromyalgia is superimposed and adds a bit of confusion. Pain appears to be mostly in the back and is felt in the RUQ/ epigastrium and shoulder area. Another differential will be AIH. As she is feeling pain every time Dilaudid wears off + increase in LFTs we will proceed with ERCP today. Pt is consented. Explained all risks, especially pancreatitis and potential perforation. Discussed with Dr. Wright who is in agreement. Plan 1. ERCP today 2. Keep NPO 3. Pain control 4. Check IgG level and CRISTINA to check for autoimmune hepatitis.
[2018-01-08] MEDS: HYDROmorphone INJ 0.5 MG/0.5 ML SYR IV PRN ×2 (12:01→15:55)
--- NOTE | 2018-01-08 14:23 | Family Medicine Progress Note ---
Progress Note Date of Service Jan 08, 2018. Subjective Pt evaluation today including: conversation w/ patient, conversation w/ family , physical exam, chart review, lab review Patient reports persistent RUQ pain and nausea. She says that the pain radiates to her back and right shoulder. Constitutional: No fever, No chills, No sweats Respiratory: No cough, No wheezing, No shortness of breath Cardiovascular: No chest pain, No edema, No palpitations Abdomen: + pain, + nausea, No vomiting Female : No dysuria Medications Current Inpatient Medications Medications (Trade) Dose Ordered Sig/Shruthi Route Start Time Stop Time Status Last Admin Dose Admin Ioversol (Optiray 300) 100 ml UD PRN IV 01/07/18 15:00 01/11/18 14:59 Enoxaparin Sodium (Lovenox Inj) 40 mg Q24H SQ 01/07/18 18:00 02/06/18 17:59 01/07/18 20:02 40 MG Al Hydrox/Mg Hydrox/Simethicone (Maalox Max Susp) 15 ml Q4H PRN PO 01/07/18 16:30 02/06/18 16:29 Magnesium Hydroxide (Milk Of Magnesia Susp) 30 ml Q6H PRN PO 01/07/18 16:30 02/06/18 16:29 Polyethylene (Miralax Powder Packet) 17 gm DAILY PRN PO 01/07/18 16:30 02/06/18 16:29 Ondansetron HCl (Zofran Inj) 4 mg Q6H PRN IV 01/07/18 16:30 02/06/18 16:29 01/07/18 16:47 4 MG Cyclobenzaprine HCl (Flexeril Tab) 10 mg HS PRN PO 01/07/18 16:30 02/06/18 16:29 Oxycodone HCl (Oxycontin Tab) 10 mg DAILYBB PO 01/08/18 06:00 01/22/18 06:59 Topiramate (Topamax Tab) 50 mg BID PO 01/07/18 21:00 02/06/18 20:59 01/07/18 21:45 50 MG Meloxicam (Mobic Tab) 15 mg DAILY PO 01/08/18 09:00 02/07/18 08:59 Glucose (Glucose 40% Gel) 15-30 GRAMS 15 GRAMS... UD PRN PO 01/07/18 16:45 02/06/18 16:44 Glucose (Glucose Chew Tab) 4-8 Tablets 4 Tabl... UD PRN PO 01/07/18 16:45 02/06/18 16:44 Dextrose (Dextrose 50% 50ML Syringe) 25-50ML OF 50% DW IV FOR... UD PRN IV 01/07/18 16:45 02/06/18 16:44 Glucagon (Glucagon Inj) 1 mg UD PRN SQ 01/07/18 16:45 02/06/18 16:44 Pantoprazole Sodium (Protonix Tab) 40 mg QAM PO 01/08/18 09:00 02/07/18 08:59 Sodium Chloride 1,000 ml @ 100 mls/hr Q10H IV 01/07/18 18:15 02/06/18 18:14 01/08/18 05:28 100 MLS/HR Hydromorphone HCl (Dilaudid Inj) 0.5 mg Q2H PRN IV 01/07/18 23:15 01/21/18 23:14 01/08/18 12:01 0.5 MG Hydromorphone HCl (Dilaudid Inj) 1 mg Q4H PRN IV 01/07/18 23:15 01/21/18 23:14 01/08/18 07:48 1 MG Insulin Aspart (novoLOG ASPART) SLIDING SCALE G... Q6 SC 01/08/18 06:00 02/07/18 05:59 Objective Vital Signs Date Time Temp Pulse Resp B/P (MAP) Pulse Ox O2 Delivery O2 Flow Rate FiO2 01/08/18 07:45 Room Air 01/08/18 07:14 36.8 68 16 108/70 (83) 94 Room Air 01/07/18 23:44 Room Air 01/07/18 23:11 36.7 68 16 106/69 (81) 95 Room Air 01/07/18 18:44 36.7 78 16 125/79 Room Air 01/07/18 18:00 Room Air 01/07/18 17:11 76 18 137/80 99 Room Air 01/07/18 16:43 72 18 125/66 96 Room Air 01/07/18 16:00 36.7 78 16 125/79 (94) 94 Room Air 01/07/18 14:24 36.7 85 20 145/85 94 Room Air Physical Exam General Appearance: WD/WN, no apparent distress Neck: supple, no adenopathy Respiratory/Chest: chest non-tender, normal breath sounds, no respiratory distress Cardiovascular: regular rate, rhythm, no edema, no murmur Abdomen: normal bowel sounds, soft, no organomegaly, no pulsatile mass, + tenderness Extremities: non-tender, normal inspection, no pedal edema, no calf tenderness Neurologic/Psychiatric: alert, normal mood/affect, oriented x 3 Skin: normal color, warm/dry, no rash Laboratory Results 01/07/18 14:53 Red Blood Count 4.56, Mean Corpuscular Volume 91.4, Mean Corpuscular Hemoglobin 32.0, Mean Corpuscular Hemoglobin Concent 35.0, Mean Platelet Volume 9.0, Neutrophils (%) (Auto) 57.7, Lymphocytes (%) (Auto) 32.8, Monocytes (%) (Auto) 7.6, Eosinophils (%) (Auto) 1.1, Basophils (%) (Auto) 0.6, Neutrophils # (Auto) 3.14, Lymphocytes # (Auto) 1.78, Monocytes # (Auto) 0.41, Eosinophils # (Auto) 0.06, Basophils # (Auto) 0.03 01/08/18 06:25 Test 01/07/18 14:35 01/07/18 14:53 01/07/18 14:57 01/07/18 18:15 Urine Color DK YELLOW Urine Appearance CLEAR (CLEAR) Urine pH 6.0 (4.5-7.5) Urine Specific [place] 1.025 (1.000-1.030) Urine Protein NEG (NEG) Urine Glucose (UA) NEG (NEG) Urine Ketones NEG (NEG) Urine Occult Blood NEG (NEG) Urine Nitrite NEG (NEG) Urine Bilirubin NEG (NEG) Urine Urobilinogen NEG (NEG) Urine Leukocyte Esterase NEG (NEG) Urine WBC (Auto) 1-5 /hpf (0-5) Urine RBC (Auto) 0-4 /hpf (0-4) Urine Hyaline Casts (Auto) 1-5 /lpf (0-5) Urine Epithelial Cells (Auto) 20-30 /lpf (0-5) Urine Bacteria (Auto) NEG (NEG) Urine Test NEG (NEG) White Blood Count 5.43 K/uL (4.8-10.8) Red Blood Count 4.56 M/uL (4.2-5.4) Hemoglobin 14.6 g/dL (12.0-16.0) Hematocrit 41.7 % (37-47) Mean Corpuscular Volume 91.4 fL (80-100) Mean Corpuscular Hemoglobin 32.0 pg (25-34) Mean Corpuscular Hemoglobin Concent 35.0 g/dl (32-36) Platelet Count 225 K/uL (130-400) Mean Platelet Volume 9.0 fL (7.4-10.4) Neutrophils (%) (Auto) 57.7 % Lymphocytes (%) (Auto) 32.8 % Monocytes (%) (Auto) 7.6 % Eosinophils (%) (Auto) 1.1 % Basophils (%) (Auto) 0.6 % Neutrophils # (Auto) 3.14 K/uL (1.4-6.5) Lymphocytes # (Auto) 1.78 K/uL (1.2-3.4) Monocytes # (Auto) 0.41 K/uL (0.11-0.59) Eosinophils # (Auto) 0.06 K/uL (0-0.5) Basophils # (Auto) 0.03 K/uL (0-0.2) RDW Standard Deviation 43.8 fL (36.4-46.3) RDW Coefficient of Variation 13.2 % (11.5-14.5) Immature Granulocyte % (Auto) 0.2 % Immature Granulocyte # (Auto) 0.01 K/uL (0.00-0.02) Prothrombin Time 9.9 SECONDS (9.0-12.0) Prothromb Time International Ratio 0.9 (0.9-1.1) Lipase 179 U/L (73-393) Hepatitis B Surface Antigen NEG (NEG) Hepatitis C Antibody NEG (NEG) Bedside Hemoglobin 14.3 g/dl (12.0-16.0) Bedside Hematocrit 42 % (37-47) Bedside Sodium 140 mEq/L (135-144) Bedside Potassium 4.0 mEq/L (3.3-5.0) Bedside Chloride 101 mEq/L (101-112) Bedside Total CO2 25 mEq/l (24-31) Bedside Blood Urea Nitrogen 23 mg/dl (7-18) Bedside Creatinine 1.0 mg/dl (0.6-1.3) Bedside Glucose (other) 140 mg/dl (70-99) Bedside Ionized Calcium (Ezra) 1.19 mmol/l (1.12-1.32) Urine Opiates Screen POS (NEG) Urine Methadone, Qualitative NEG (NEG) Urine Barbiturates NEG (NEG) Urine Phencyclidine (PCP) Level NEG (NEG) Ur Amphetamine/Methamphetamine NEG (NEG) MDMA (Ecstasy) Screen NEG (NEG) Urine Benzodiazepines Screen NEG (NEG) Urine Cocaine Metabolite NEG (NEG) Urine Marijuana (THC) NEG (NEG) Test 01/07/18 20:20 01/08/18 06:25 01/08/18 12:06 Acetaminophen Level < 2 ug/ml (10-30) Anion Gap 5.0 mmol/L (3-11) Est Creatinine Clear Calc Drug Dose 74.8 ml/min Estimated GFR () 72.6 Estimated GFR (Non- 62.6 BUN/Creatinine Ratio 18.5 (10-20) Calcium Level 8.5 mg/dl (8.5-10.1) Total Bilirubin 0.9 mg/dl (0.2-1) Direct Bilirubin 0.3 mg/dl (0-0.2) Aspartate Amino Transf (AST/SGOT) 589 U/L (15-37) Alanine Aminotransferase (ALT/SGPT) 544 U/L (12-78) Alkaline Phosphatase 128 U/L (45-117) Total Protein 5.6 gm/dl (6.4-8.2) Albumin 3.0 gm/dl (3.4-5.0) Bedside Glucose 141 mg/dl (70-90) Assessment and Plan 57 y/o female with to the ED because of RUQ that radiates to her back. Was found to have elevated LFT's. PMH includes: reflex sympathetic dystrophy, fibromyalgia, migraines, insomnia, T2DM, HLD, and GERD, 01/08 -Patient still c/o RUQ pain and liver enzymes continue to increase. Following GI recs; ERCP today, IgG, CRISTINA levels. RUQ pain, elevated LFTs: -GI consult appreciate recs; ERCP, IgG, CRISTINA level with labs -Continue to follow CMP -Continue MIVF, NPO except for ice chips -Tylenol level < 2, PT/INR WNL, acute hepatitis panel pending -USG of the abdomen was unremarkable -Continue to hold Lipitor -Pain control; Dilaudid T2DM -Hold Metformin 1000 mg BID -BSG ACHS and ISS HLD -Hold Lipitor 20 mg daily Reflex sympathetic dystrophy, fibromyalgia -Continue Flexeril 10 mg HS PRN, Gabapentin 100 mg daily, Meloxicam 15 mg daily , Oxycodone 10 mg daily Migraines -Continue Topamax 50 mg BID Insomnia -Has Ambien PRN- states she rarely uses, will hold for now GERD -Protonix daily while inpatient- resume Prilosec at discharge Incidental Nodular lesion superior/anterior to bladder -10 x 9 mm nodular lesion superior and anterior to the urinary bladder appears new from prior study and may reflect a lymph node or indeterminate lower mesenteric nodule. DVT prophylaxis -Lovenox SQ daily Code status: LEVEL I, FULL Dispo: From home- no discharge needs anticipated Reviewed: Pt Seen/Exam by Me History requiring medication to help control the abdominal pain. Constitutional: denies: fever Respiratory: negative: short of breath Cardiovascular: denies chest pain General Appearance: no apparent distress Respiratory: lungs clear, no respiratory distress Cardiovascular: regular rate, rhythm Gastrointestinal: normal bowel sounds, non tender, soft Neurologic/Psychiatric: alert, oriented x 3 Skin Characteristics: warm/dry Assessment/Plan Resident Physician Supervision Note: I independently interviewed and examined the patient and verified the rm history and physical, reviewed labs and image studies, discussed the case with the resident Dr. Lou and agree with the findings and care plan.
[2018-01-08] MEDS ORDERED: FENTANYL CITRATE INJ 50 MCG/1 ML 2 ML VIAL ONE (19:02)
[2018-01-08] MEDS ORDERED: MIDAZOLAM HCL 1 MG/ML 2ML VIAL ONE (19:02)
[2018-01-08] MEDS ORDERED: FENTANYL CITRATE INJ 50 MCG/1 ML 2 ML VIAL IV PRN (19:15)
[2018-01-08] MEDS ORDERED: ONDANSETRON INJ 2 MG/ML 2 ML VIAL IV PRN (19:15)
[2018-01-08] MEDS ORDERED: HYDROmorphone INJ 1 MG/ML SYR IV PRN (19:15)
[2018-01-08] MEDS ORDERED: ATROPINE SULFATE 0.1 MG/ML 5ML SYR IV PRN (19:15)
[2018-01-08] MEDS ORDERED: EpHEDrine SULFATE INJ 50 MG/ML AMP IV PRN (19:15)
[2018-01-08] MEDS ORDERED: PROPOFOL IV EMULSION 10 MG/ML 20 ML VIAL IV ONE (19:46)
[2018-01-08] MEDS ORDERED: PHENYLEPHRINE HCL INJ 10 MG/ML VIAL ONE (19:46)
[2018-01-08] MEDS ORDERED: SUCCINYLCHOLINE CHLORIDE 20 MG/ML 10 ML VIAL IV ONE (19:46)
[2018-01-08] MEDS ORDERED: ONDANSETRON INJ 2 MG/ML 2 ML VIAL ONE ×2 (19:46→20:18)
--- NOTE | 2018-01-08 20:04 | GI REPORT ---
Procedure Date: 01/08/2018 6:29 PM THIS REPORT HAS BEEN AMENDED Addendum Number: 1 Addendum Date: 01/09/2018 8:34:47 AM note: on esophageal exam there was appearence of a short segment Barretts esophagus. GEJ was at 39~40 cm and there where two tougues of salmon pink mucosa about 2 cm long. Cold biopsies where taken from here. Procedure: ERCP Indications: Abdominal pain of suspected biliary origin, Suspected bile duct stone(s), Elevated liver enzymes Medicines: General Anesthesia Complications: No immediate complications. Estimated blood loss: Minimal. Estimated Blood Loss: Estimated blood loss was minimal. Procedure: Pre-Anesthesia Assessment: - Prior to the procedure, a History and Physical was performed, and patient medications and allergies were reviewed. The patient's tolerance of previous anesthesia was also reviewed. The risks and benefits of the procedure and the sedation options and risks were discussed with the patient. All questions were answered, and informed consent was obtained. Prior Anticoagulants: The patient has taken no previous anticoagulant or antiplatelet agents. ASA Grade Assessment: III - A patient with severe systemic disease. After reviewing the risks and benefits, the patient was deemed in satisfactory condition to undergo the procedure. After obtaining informed consent, the scope was passed under direct vision. Throughout the procedure, the patient's blood pressure, pulse, and oxygen saturations were monitored continuously. The Scope was introduced through the mouth, and advanced to the duodenum and used to inject contrast into the bile duct. The ERCP was accomplished without difficulty. The patient tolerated the procedure well. Findings: A laborer brush clearing film of the abdomen was obtained. Surgical clips, consistent with previous cholecystectomy, were seen in the area of the [Site]. The esophagus was successfully intubated under direct vision. The scope was advanced to a normal major papilla in the descending duodenum without detailed examination of the pharynx, larynx and associated structures, and upper GI tract. The upper GI tract was grossly normal. Acrobat wire was passed into the biliary tree. The short-nosed traction sphincterotome was passed over the guidewire and the bile duct was then deeply cannulated. Contrast was injected. The intra-hepatic and extra-hepatic biliary duct system was normal. An 8 mm biliary sphincterotomy was made with a traction (standard) sphincterotome using ERBE electrocautery. There was no post-sphincterotomy bleeding. The biliary tree was swept with a 15 mm balloon starting at the bifurcation. Sludge was swept from the duct. Impression: - The cholangiogram was normal. - A biliary sphincterotomy was performed. - The biliary tree was swept and sludge was found. Only small amount, unclear if this is the cause of her LFT abnormality. R/o AIH Recommendation: - [facility] care. Foreign Guthrie M.D. Foreign Guthrie MD 01/08/2018 8:04:16 PM This report has been signed electronically. Note Initiated On: 01/08/2018 6:29 PM I attest to the content of the Intraoperative Record and orders documented therein, exceptions below Foreign Guthrie M.D. Foreign Guthrie MD 01/09/2018 8:36:10 AM This report has been signed electronically.
[2018-01-08] MEDS: ENOXAPARIN 40 MG/0.4 ML SYR SQ SCH (22:02)
--- NOTE | 2018-01-08 22:25 | Anesthesiology Progress Note ---
Anesthesia Post Op Note Date & Time Jan 08, 2018 at 22:24 Vital Signs Pain Intensity: 3.0 Vital Signs Past 12 Hours Date Time Temp Pulse Resp B/P (MAP) Pulse Ox O2 Delivery O2 Flow Rate FiO2 01/08/18 22:07 36.8 76 16 120/73 (89) 96 Room Air 01/08/18 21:48 36.7 72 16 121/73 (89) 95 Room Air 01/08/18 21:30 94 Room Air 01/08/18 21:30 Room Air 01/08/18 21:11 36.8 73 16 122/75 (91) 94 Room Air 01/08/18 20:50 37.3 77 16 127/65 93 Room Air 01/08/18 20:40 37.3 71 16 123/73 94 Room Air 01/08/18 20:30 71 16 118/74 99 Oxymask 10 01/08/18 20:20 74 16 114/75 99 Oxymask 10 01/08/18 20:14 36.7 84 12 127/70 98 Oxymask 10 01/08/18 17:11 37.0 01/08/18 15:13 36.9 72 16 123/76 (92) 93 Room Air Notes Mental Status: alert / awake / arousable, participated in evaluation Pt Amnestic to Procedure: Yes Nausea / Vomiting: adequately controlled Pain: adequately controlled Airway Patency, RR, SpO2: stable & adequate BP & HR: stable & adequate Hydration State: stable & adequate Anesthetic Complications: no major complications apparent
--- NOTE | 2018-01-08 22:52 | DIAGNOSTIC IMAGING REPORT ---
ERCP BILIARY DUCTAL CLINICAL HISTORY: ERCP COMPARISON STUDY: Abdominal ultrasound 01/07/2018. FLUOROSCOPY TIME: 40 seconds.. FINDINGS: 9 fluoroscopic spot images of the right upper quadrant. The endoscope is seen at the second portion of the duodenum and the ampulla was cannulated. This was followed by injection of contrast into the normal caliber common bile duct. Prior cholecystectomy. Image 6 demonstrates a few small filling defects within the distal common bile duct. IMPRESSION: A few small filling defects within the distal common bile duct which could represent gas bubbles or small stones. The common bile duct is normal in caliber. Electronically signed by: Jordan Meeks M.D. 01/08/2018 10:51 PM Dictated Date/Time: 01/08/2018 10:49 PM
[2018-01-09] VITALS (7 sets, daily range): BP systolic 102–143; BP diastolic 62–87; PULSE 69–86; TEMP 36.9–37.5; O2SAT 93–98
[2018-01-09] MEDS: SODIUM CHLORIDE 0.9% 1000ML 1,000 ML IV SCH (00:06)
[2018-01-09] MEDS: OXYCODONE HCL 10 MG TABCR (OXYCONTIN) PO SCH (05:21)
[2018-01-09 06:10] LABS: BASO % 0.5 %; BASO ABS # 0.03 K/uL (0-0.2); EOS % 1.9 %; EOS ABS # 0.11 K/uL (0-0.5); HEMOGLOBIN 13.1 g/dL (12.0-16.0); IG# 0.01 K/uL (0.00-0.02); LYMPH % 25.9 %; LYMPH ABS # 1.47 K/uL (1.2-3.4); MEAN CELL VOLUME 91.6 fL (80-100); MEAN CORPUSCULAR HEMOGLOBIN 31.6 pg (25-34); MEAN CORPUSCULAR HGB CONC 34.5 g/dl (32-36); MEAN PLATELET VOLUME 9.3 fL (7.4-10.4); MONO % 6.7 %; MONO ABS # 0.38 K/uL (0.11-0.59); NEUT % 64.8 %; NEUT ABS # 3.68 K/uL (1.4-6.5); PLATELET COUNT 198 K/uL (130-400); RED CELL DISTRIBUTION WIDTH CV 12.9 % (11.5-14.5); RED CELL DISTRIBUTION WIDTH SD 43.3 fL (36.4-46.3); WHITE BLOOD COUNT 5.68 K/uL (4.8-10.8)
[2018-01-09 06:35] LABS: ALBUMIN 3.3 gm/dl (3.4-5.0); CALCIUM 8.6 mg/dl (8.5-10.1); CREATININE 0.86 mg/dl (0.60-1.20); POTASSIUM 3.9 mmol/L (3.5-5.1); TOTAL PROTEIN 6.6 gm/dl (6.4-8.2)
[2018-01-09] MEDS: HYDROmorphone INJ 0.5 MG/0.5 ML SYR IV PRN (07:41)
[2018-01-09] MEDS: MELOXICAM 7.5 MG TAB PO SCH (08:55)
[2018-01-09] MEDS: PANTOprazole SOD 40 MG TAB PO SCH (08:56)
[2018-01-09] MEDS: TOPIRAMATE 50 MG TAB PO SCH ×2 (08:56→21:14)
[2018-01-09] MEDS: INSULIN ASPART 100 UNITS/ML 3 ML PEN SC SCH ×4 (09:03→21:00)
--- NOTE | 2018-01-09 09:03 | Gastroenterology Progress Note ---
Progress Note Date of Service: Jan 09, 2018 Subjective Pt evaluation today including: conversation w/ patient, physical exam, lab review, review of studies Review of Systems Constitutional: No fever Abdomen: + pain, No GI bleeding, No jaundice Musculoskeletal: + muscle pain, + calf pain (New muscle pain on both legs.) Medications Current Inpatient Medications Medications (Trade) Dose Ordered Sig/Shruthi Route Start Time Stop Time Status Last Admin Dose Admin Ioversol (Optiray 300) 100 ml UD PRN IV 01/07/18 15:00 01/11/18 14:59 Enoxaparin Sodium (Lovenox Inj) 40 mg Q24H SQ 01/07/18 18:00 02/06/18 17:59 01/08/18 22:02 40 MG Al Hydrox/Mg Hydrox/Simethicone (Maalox Max Susp) 15 ml Q4H PRN PO 01/07/18 16:30 02/06/18 16:29 Magnesium Hydroxide (Milk Of Magnesia Susp) 30 ml Q6H PRN PO 01/07/18 16:30 02/06/18 16:29 Polyethylene (Miralax Powder Packet) 17 gm DAILY PRN PO 01/07/18 16:30 02/06/18 16:29 Ondansetron HCl (Zofran Inj) 4 mg Q6H PRN IV 01/07/18 16:30 02/06/18 16:29 01/07/18 16:47 4 MG Cyclobenzaprine HCl (Flexeril Tab) 10 mg HS PRN PO 01/07/18 16:30 02/06/18 16:29 01/09/18 05:21 10 MG Oxycodone HCl (Oxycontin Tab) 10 mg DAILYBB PO 01/08/18 06:00 01/22/18 06:59 01/09/18 05:21 10 MG Topiramate (Topamax Tab) 50 mg BID PO 01/07/18 21:00 02/06/18 20:59 01/08/18 22:01 50 MG Meloxicam (Mobic Tab) 15 mg DAILY PO 01/08/18 09:00 02/07/18 08:59 Glucose (Glucose 40% Gel) 15-30 GRAMS 15 GRAMS... UD PRN PO 01/07/18 16:45 02/06/18 16:44 Glucose (Glucose Chew Tab) 4-8 Tablets 4 Tabl... UD PRN PO 01/07/18 16:45 02/06/18 16:44 Dextrose (Dextrose 50% 50ML Syringe) 25-50ML OF 50% DW IV FOR... UD PRN IV 01/07/18 16:45 02/06/18 16:44 Glucagon (Glucagon Inj) 1 mg UD PRN SQ 01/07/18 16:45 02/06/18 16:44 Pantoprazole Sodium (Protonix Tab) 40 mg QAM PO 01/08/18 09:00 02/07/18 08:59 Hydromorphone HCl (Dilaudid Inj) 0.5 mg Q2H PRN IV 01/07/18 23:15 01/21/18 23:14 01/09/18 07:41 0.5 MG Hydromorphone HCl (Dilaudid Inj) 1 mg Q4H PRN IV 01/07/18 23:15 01/21/18 23:14 01/08/18 07:48 1 MG Insulin Aspart (novoLOG ASPART) SLIDING SCALE G... ACHS SC 01/09/18 08:00 02/08/18 07:59 Objective Vital Signs Date Time Temp Pulse Resp B/P (MAP) Pulse Ox O2 Delivery O2 Flow Rate FiO2 01/09/18 07:08 37.4 81 16 134/80 (98) 93 Room Air 01/09/18 05:12 37.5 79 16 143/87 (105) 94 Room Air 01/09/18 00:10 37.3 86 16 123/75 (91) 95 Room Air 01/09/18 00:03 Room Air 01/08/18 23:10 37.2 88 16 129/71 (90) 95 Room Air 01/08/18 22:07 36.8 76 16 120/73 (89) 96 Room Air 01/08/18 21:48 36.7 72 16 121/73 (89) 95 Room Air 01/08/18 21:30 94 Room Air 01/08/18 21:30 Room Air 01/08/18 21:11 36.8 73 16 122/75 (91) 94 Room Air 01/08/18 20:50 37.3 77 16 127/65 93 Room Air 4/14/18 20:40 37.3 71 16 123/73 94 Room Air 01/08/18 20:30 71 16 118/74 99 Oxymask 10 01/08/18 20:20 74 16 114/75 99 Oxymask 10 01/08/18 20:14 36.7 84 12 127/70 98 Oxymask 10 01/08/18 17:11 37.0 01/08/18 15:13 36.9 72 16 123/76 (92) 93 Room Air Physical Exam General Appearance: + mild distress Abdomen: + tenderness (Noted in RUQ, but better than yesterday. ) Extremities: non-tender (on palpation there is no specific tenderness.), no pedal edema Neurologic/Psych: alert Skin: normal color, no jaundice Laboratory Results Last 24 Hours Test 01/08/18 12:06 01/08/18 17:53 01/08/18 21:37 01/09/18 05:46 Bedside Glucose 141 mg/dl 110 mg/dl 98 mg/dl White Blood Count 5.68 K/uL Red Blood Count 4.15 M/uL Hemoglobin 13.1 g/dL Hematocrit 38.0 % Mean Corpuscular Volume 91.6 fL Mean Corpuscular Hemoglobin 31.6 pg Mean Corpuscular Hemoglobin Concent 34.5 g/dl Platelet Count 198 K/uL Mean Platelet Volume 9.3 fL Neutrophils (%) (Auto) 64.8 % Lymphocytes (%) (Auto) 25.9 % Monocytes (%) (Auto) 6.7 % Eosinophils (%) (Auto) 1.9 % Basophils (%) (Auto) 0.5 % Neutrophils # (Auto) 3.68 K/uL Lymphocytes # (Auto) 1.47 K/uL Monocytes # (Auto) 0.38 K/uL Eosinophils # (Auto) 0.11 K/uL Basophils # (Auto) 0.03 K/uL RDW Standard Deviation 43.3 fL RDW Coefficient of Variation 12.9 % Immature Granulocyte % (Auto) 0.2 % Immature Granulocyte # (Auto) 0.01 K/uL Sodium Level 143 mmol/L Potassium Level 3.9 mmol/L Chloride Level 113 mmol/L Carbon Dioxide Level 26 mmol/L Anion Gap 4.0 mmol/L Blood Urea Nitrogen 11 mg/dl Creatinine 0.86 mg/dl Est Creatinine Clear Calc Drug Dose 87.8 ml/min Estimated GFR () 88.1 Estimated GFR (Non- 76.1 BUN/Creatinine Ratio 12.9 Random Glucose 141 mg/dl Calcium Level 8.6 mg/dl Total Bilirubin 1.0 mg/dl Direct Bilirubin 0.2 mg/dl Aspartate Amino Transf (AST/SGOT) 305 U/L Alanine Aminotransferase (ALT/SGPT) 451 U/L Alkaline Phosphatase 146 U/L Total Protein 6.6 gm/dl Albumin 3.3 gm/dl Globulin 3.3 gm/dl Albumin/Globulin Ratio 1.0 Immunoglobulin G 853.0 mg/dL Assessment and Plan 1. Possible bilary sludge disease with CBD obstruction: Overall looks better. Precipitous drop in LFTs noted. This is support of a biliary cause. Only small amount of sludge was found at ERCP. 2. 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 Biopsies are pending. 1. Suggest clinical follow up, trend LFTs 2. CRISTINA pending. IgG is not very high.
--- NOTE | 2018-01-09 10:05 | Family Medicine Progress Note ---
Progress Note Date of Service Jan 09, 2018. Subjective Pt evaluation today including: conversation w/ patient, physical exam, chart review, lab review Patient says that her abdominal pain is improving. She c/o bilateral leg pain this am. She reports leg pain at baseline with her RSD, but she days that this pain is different. She denies chest pain or SOB. Patient is on lovenox. Constitutional: No fever, No chills Respiratory: No cough, No shortness of breath Abdomen: + pain, + nausea, No vomiting, No diarrhea Female : No dysuria Medications Current Inpatient Medications Medications (Trade) Dose Ordered Sig/Shruthi Route Start Time Stop Time Status Last Admin Dose Admin Ioversol (Optiray 300) 100 ml UD PRN IV 01/07/18 15:00 01/11/18 14:59 Enoxaparin Sodium (Lovenox Inj) 40 mg Q24H SQ 01/07/18 18:00 02/06/18 17:59 01/08/18 22:02 40 MG Al Hydrox/Mg Hydrox/Simethicone (Maalox Max Susp) 15 ml Q4H PRN PO 01/07/18 16:30 02/06/18 16:29 Magnesium Hydroxide (Milk Of Magnesia Susp) 30 ml Q6H PRN PO 01/07/18 16:30 02/06/18 16:29 Polyethylene (Miralax Powder Packet) 17 gm DAILY PRN PO 01/07/18 16:30 02/06/18 16:29 Ondansetron HCl (Zofran Inj) 4 mg Q6H PRN IV 01/07/18 16:30 02/06/18 16:29 01/07/18 16:47 4 MG Cyclobenzaprine HCl (Flexeril Tab) 10 mg HS PRN PO 01/07/18 16:30 02/06/18 16:29 01/09/18 05:21 10 MG Oxycodone HCl (Oxycontin Tab) 10 mg DAILYBB PO 01/08/18 06:00 01/22/18 06:59 01/09/18 05:21 10 MG Topiramate (Topamax Tab) 50 mg BID PO 01/07/18 21:00 02/06/18 20:59 01/09/18 08:56 50 MG Meloxicam (Mobic Tab) 15 mg DAILY PO 01/08/18 09:00 02/07/18 08:59 01/09/18 08:55 15 MG Glucose (Glucose 40% Gel) 15-30 GRAMS 15 GRAMS... UD PRN PO 01/07/18 16:45 02/06/18 16:44 Glucose (Glucose Chew Tab) 4-8 Tablets 4 Tabl... UD PRN PO 01/07/18 16:45 02/06/18 16:44 Dextrose (Dextrose 50% 50ML Syringe) 25-50ML OF 50% DW IV FOR... UD PRN IV 01/07/18 16:45 02/06/18 16:44 Glucagon (Glucagon Inj) 1 mg UD PRN SQ 01/07/18 16:45 02/06/18 16:44 Pantoprazole Sodium (Protonix Tab) 40 mg QAM PO 01/08/18 09:00 02/07/18 08:59 01/09/18 08:56 40 MG Hydromorphone HCl (Dilaudid Inj) 0.5 mg Q2H PRN IV 01/07/18 23:15 01/21/18 23:14 01/09/18 07:41 0.5 MG Hydromorphone HCl (Dilaudid Inj) 1 mg Q4H PRN IV 01/07/18 23:15 01/21/18 23:14 01/08/18 07:48 1 MG Insulin Aspart (novoLOG ASPART) SLIDING SCALE G... ACHS SC 01/09/18 08:00 02/08/18 07:59 01/09/18 09:03 3 UNITS Objective Vital Signs Date Time Temp Pulse Resp B/P (MAP) Pulse Ox O2 Delivery O2 Flow Rate FiO2 01/09/18 07:08 37.4 81 16 134/80 (98) 93 Room Air 01/09/18 05:12 37.5 79 16 143/87 (105) 94 Room Air 01/09/18 00:10 37.3 86 16 123/75 (91) 95 Room Air 01/09/18 00:03 Room Air 01/08/18 23:10 37.2 88 16 129/71 (90) 95 Room Air 01/08/18 22:07 36.8 76 16 120/73 (89) 96 Room Air 01/08/18 21:48 36.7 72 16 121/73 (89) 95 Room Air 01/08/18 21:30 94 Room Air 01/08/18 21:30 Room Air 01/08/18 21:11 36.8 73 16 122/75 (91) 94 Room Air 01/08/18 20:50 37.3 77 16 127/65 93 Room Air 01/08/18 20:40 37.3 71 16 123/73 94 Room Air 01/08/18 20:30 71 16 118/74 99 Oxymask 10 01/08/18 20:20 74 16 114/75 99 Oxymask 10 01/08/18 20:14 36.7 84 12 127/70 98 Oxymask 10 01/08/18 17:11 37.0 01/08/18 15:13 36.9 72 16 123/76 (92) 93 Room Air Physical Exam General Appearance: WD/WN, no apparent distress Neck: supple, no adenopathy Respiratory/Chest: lungs clear, normal breath sounds Cardiovascular: regular rate, rhythm, no edema, no murmur Abdomen: normal bowel sounds, non tender, soft, no organomegaly, no pulsatile mass, + tenderness (RUQ) Extremities: normal range of motion, normal inspection, no pedal edema Neurologic/Psychiatric: no motor/sensory deficits, alert, oriented x 3 Skin: normal color, warm/dry, no rash Laboratory Results 01/09/18 05:46 Red Blood Count 4.15, Mean Corpuscular Volume 91.6, Mean Corpuscular Hemoglobin 31.6, Mean Corpuscular Hemoglobin Concent 34.5, Mean Platelet Volume 9.3, Neutrophils (%) (Auto) 64.8, Lymphocytes (%) (Auto) 25.9, Monocytes (%) (Auto) 6.7, Eosinophils (%) (Auto) 1.9, Basophils (%) (Auto) 0.5, Neutrophils # (Auto) 3.68, Lymphocytes # (Auto) 1.47, Monocytes # (Auto) 0.38, Eosinophils # (Auto) 0.11, Basophils # (Auto) 0.03 01/09/18 05:46 Test 01/09/18 05:46 01/09/18 08:08 White Blood Count 5.68 K/uL (4.8-10.8) Red Blood Count 4.15 M/uL (4.2-5.4) Hemoglobin 13.1 g/dL (12.0-16.0) Hematocrit 38.0 % (37-47) Mean Corpuscular Volume 91.6 fL (80-100) Mean Corpuscular Hemoglobin 31.6 pg (25-34) Mean Corpuscular Hemoglobin Concent 34.5 g/dl (32-36) Platelet Count 198 K/uL (130-400) Mean Platelet Volume 9.3 fL (7.4-10.4) Neutrophils (%) (Auto) 64.8 % Lymphocytes (%) (Auto) 25.9 % Monocytes (%) (Auto) 6.7 % Eosinophils (%) (Auto) 1.9 % Basophils (%) (Auto) 0.5 % Neutrophils # (Auto) 3.68 K/uL (1.4-6.5) Lymphocytes # (Auto) 1.47 K/uL (1.2-3.4) Monocytes # (Auto) 0.38 K/uL (0.11-0.59) Eosinophils # (Auto) 0.11 K/uL (0-0.5) Basophils # (Auto) 0.03 K/uL (0-0.2) RDW Standard Deviation 43.3 fL (36.4-46.3) RDW Coefficient of Variation 12.9 % (11.5-14.5) Immature Granulocyte % (Auto) 0.2 % Immature Granulocyte # (Auto) 0.01 K/uL (0.00-0.02) Anion Gap 4.0 mmol/L (3-11) Est Creatinine Clear Calc Drug Dose 87.8 ml/min Estimated GFR () 88.1 Estimated GFR (Non- 76.1 BUN/Creatinine Ratio 12.9 (10-20) Calcium Level 8.6 mg/dl (8.5-10.1) Total Bilirubin 1.0 mg/dl (0.2-1) Direct Bilirubin 0.2 mg/dl (0-0.2) Aspartate Amino Transf (AST/SGOT) 305 U/L (15-37) Alanine Aminotransferase (ALT/SGPT) 451 U/L (12-78) Alkaline Phosphatase 146 U/L (45-117) Total Protein 6.6 gm/dl (6.4-8.2) Albumin 3.3 gm/dl (3.4-5.0) Globulin 3.3 gm/dl (2.5-4.0) Albumin/Globulin Ratio 1.0 (0.9-2) Immunoglobulin G 853.0 mg/dL (700-1600) Bedside Glucose 151 mg/dl (70-90) Assessment and Plan 57 y/o female with to the ED because of RUQ that radiates to her back. Was found to have elevated LFT's. PMH includes: reflex sympathetic dystrophy, fibromyalgia, migraines, insomnia, T2DM, HLD, and GERD, 01/09 -Patient c/o of milder RUQ pain and liver enzymes are trending down today. Discussed the case with Dr. Nassar; performed ERCP last evening, not convinced etiology is 2/2 sludge and would like to trend LFT's and autoimmune testing. Patient is also c/o bilateral LE pain. Patient has a h/o pain with RSD. Pt denies chest pain, SOB or swelling of the extremities. No erythema or tenderness with palpation. On Lovenox. Leg pain is possibly 2/2 RSD or anesthesia last evening-- will continue to follow throughout the day. RUQ pain, elevated LFTs: -GI consult appreciate recs; CRISTINA pending. IgG was not elevated. -s/p ERCP - mild sludge - not likely the etiology of elevated LFT and symptoms. -Continue to follow CMP -Continue MIVF, NPO except for ice chips -USG of the abdomen was unremarkable -Continue to hold Lipitor -Pain control; home oxycodone, dc'ed Dilaudid T2DM -Hold Metformin 1000 mg BID -BSG ACHS and ISS HLD -Hold Lipitor 20 mg daily Reflex sympathetic dystrophy, fibromyalgia -Continue Flexeril 10 mg HS PRN, Gabapentin 100 mg daily, Meloxicam 15 mg daily , Oxycodone 10 mg daily Migraines -Continue Topamax 50 mg BID Insomnia -Has Ambien PRN- states she rarely uses, will hold for now GERD -Protonix daily while inpatient- resume Prilosec at discharge Incidental Nodular lesion superior/anterior to bladder -10 x 9 mm nodular lesion superior and anterior to the urinary bladder appears new from prior study and may reflect a lymph node or indeterminate lower mesenteric nodule. DVT prophylaxis -Lovenox SQ daily Code status: LEVEL I, FULL Dispo: From home- no discharge needs anticipated Reviewed: Pt Seen/Exam by Me History continues to have abdominal Constitutional: denies: fever Respiratory: negative: short of breath Cardiovascular: denies chest pain Gastrointestinal/Abdominal: positive: abdominal pain General Appearance: no apparent distress Respiratory: lungs clear, no respiratory distress Cardiovascular: regular rate, rhythm Gastrointestinal: soft Neurologic/Psychiatric: alert, oriented x 3 Skin Characteristics: warm/dry Assessment/Plan Resident Physician Supervision Note: I independently interviewed and examined the patient and verified the rm history and physical, reviewed labs and image studies, discussed the case with the resident Dr. Lou and agree with the findings and care plan.
[2018-01-09 14:46] LABS: HEPATITIS A IGM TC 51813E NON-REACTIVE (NON-REACTIVE); HEPATITIS B CORE IGM TC51854R NON-REACTIVE (NON-REACTIVE)
[2018-01-09] MEDS: ENOXAPARIN 40 MG/0.4 ML SYR SQ SCH (18:02)
[2018-01-10] MEDS: OXYCODONE HCL 10 MG TABCR (OXYCONTIN) PO SCH (05:54)
[2018-01-10 06:51] LABS: HEMATOCRIT 39.2 % (37-47); HEMOGLOBIN 13.5 g/dL (12.0-16.0); MEAN CELL VOLUME 91.2 fL (80-100); MEAN CORPUSCULAR HEMOGLOBIN 31.4 pg (25-34); MEAN CORPUSCULAR HGB CONC 34.4 g/dl (32-36); PLATELET COUNT 192 K/uL (130-400); RED CELL DISTRIBUTION WIDTH SD 43.4 fL (36.4-46.3)
[2018-01-10 07:21] LABS: ALBUMIN 3.5 gm/dl (3.4-5.0); CALCIUM 8.8 mg/dl (8.5-10.1); CREATININE 0.88 mg/dl (0.60-1.20)
[2018-01-10 07:23] LABS: TOTAL PROTEIN 6.6 gm/dl (6.4-8.2)
[2018-01-10 07:38] VITALS: BP 116/66; PULSE 65; TEMP 36.9; O2SAT 94
[2018-01-10] MEDS: PANTOprazole SOD 40 MG TAB PO SCH (08:50)
[2018-01-10] MEDS: MELOXICAM 7.5 MG TAB PO SCH (08:50)
[2018-01-10] MEDS: TOPIRAMATE 50 MG TAB PO SCH (08:51)
[2018-01-10] MEDS: INSULIN ASPART 100 UNITS/ML 3 ML PEN SC SCH (09:08)
[2018-01-10] MEDS ORDERED: DICLOFENAC SOD 1% GEL 100 GM TUBE EXT ONE (10:27)
[2018-01-10] MEDS ORDERED: VLTG EXT (10:29)
--- NOTE | 2018-01-10 10:35 | Discharge Instructions ---
Discharge Instructions Date of Service Jan 10, 2018. Admission Reason for Admission: ELEVATED LFTs Discharge Discharge Diagnosis / Problem: biliary sludge Discharge Goals Goal(s): Diagnostic testing, Therapeutic intervention Activity Recommendations Activity Limitations: resume your previous activity . Instructions / Follow-Up Instructions / Follow-Up a) biliary sludge -your right upper abdominal pain and elevated liver enzymes appear to have been related to obstruction of your biliary tree from sludge -- this has improved since gasteroenterology stented things open. we'll need to have you follow with GI periodically as well as have intermittent labs to follow liver enzymes to keep an eye on things -we'll want you to have follow up labs by the end of the week - this can be done either through Dr Anton or the [facility] team ---our nurse navigator will be setting up follow up with both Dr Anton and [facility] GI for the near future b) neck pain -everything examines to be muscular -- we did some gentle unwinding manipulative medicine to try to get things looser. Dr Anton can continue to work on your neck and shoulders as he sees you in follow up. also use the voltaren (diclofenac) gel four times a day to help settle down the pain Current Hospital Diet Patient's current hospital diet: AHA Diet (Heart Healthy), Diabetes Type 2 Diet Discharge Diet Recommended Diet: AHA Diet (Heart Healthy), Diabetes Type 2 Diet Procedures Procedures Performed: Endoscopic Retrograde Cholangiopancreatogram with Stent Placement, Sphincterotomy, Esophageal Biopsies Pending Studies Studies pending at discharge: no Medical Emergencies . Who to Call and When: Medical Emergencies: If at any time you feel your situation is an emergency, please call 911 immediately. . Non-Emergent Contact Non-Emergency issues call your: Primary Care Provider, Lead Database Administrator . . "Provider Documentation" section prepared by Justin Perez. .
--- NOTE | 2018-01-10 10:35 | Discharge Summary ---
Discharge Summary Date of Service Jan 10, 2018. Discharge Summary Admission Date: Jan 07, 2018 at 16:33 Discharge Date: Jan 10, 2018 Discharge Disposition: Home Principal Diagnosis: elevated LFTs, RUQ pain (see below) Procedures: ERCP w sphincterotomy Last 24 Hours Test 01/09/18 19:56 01/10/18 06:34 01/10/18 08:05 Bedside Glucose 135 mg/dl 115 mg/dl White Blood Count 5.90 K/uL Red Blood Count 4.30 M/uL Hemoglobin 13.5 g/dL Hematocrit 39.2 % Mean Corpuscular Volume 91.2 fL Mean Corpuscular Hemoglobin 31.4 pg Mean Corpuscular Hemoglobin Concent 34.4 g/dl RDW Standard Deviation 43.4 fL RDW Coefficient of Variation 13.0 % Platelet Count 192 K/uL Mean Platelet Volume 9.0 fL Sodium Level 143 mmol/L Potassium Level 4.0 mmol/L Chloride Level 113 mmol/L Carbon Dioxide Level 27 mmol/L Anion Gap 4.0 mmol/L Blood Urea Nitrogen 11 mg/dl Creatinine 0.88 mg/dl Est Creatinine Clear Calc Drug Dose 85.8 ml/min Estimated GFR () 85.7 Estimated GFR (Non- 74.0 BUN/Creatinine Ratio 12.4 Random Glucose 125 mg/dl Calcium Level 8.8 mg/dl Total Bilirubin 0.7 mg/dl Direct Bilirubin 0.2 mg/dl Aspartate Amino Transf (AST/SGOT) 119 U/L Alanine Aminotransferase (ALT/SGPT) 312 U/L Alkaline Phosphatase 130 U/L Total Protein 6.6 gm/dl Albumin 3.5 gm/dl Consultations: GI: 1. Possible bilary sludge disease with CBD obstruction: Overall looks better. Precipitous drop in LFTs noted. This is support of a biliary cause. Only small amount of sludge was found at ERCP. 2. 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 Biopsies are pending. 1. Suggest clinical follow up, trend LFTs 2. CRISTINA pending. IgG is not very high. <Electronically signed by Foreign Guthrie M.D.> Medication Reconciliation New Medications: Diclofenac Sod (Voltaren) 100 Appln/100 Gm Gel 1 GM EXT QID, #100 GM Continued Medications: Atorvastatin (Lipitor) 20 Mg Tab 20 MG PO QAM, TAB Cyclobenzaprine Hcl (Flexeril) 10 Mg Tab 10 MG PO HS PRN for Muscle Spasm, TAB Gabapentin (Neurontin) 100 Mg Cap 100 MG PO DAILY, CAP Meloxicam (Meloxicam) 15 Mg Tab 15 MG PO DAILY Metformin Hcl (Glucophage) 500 Mg Tab 1000 MG PO BID, TAB Omeprazole (Prilosec) 40 Mg Cap 40 MG PO DAILY, CAP Oxycodone Hcl (Oxycodone Hcl Er) 10 Mg Tab 10 MG PO DAILYBB, TAB Topiramate (Topamax) 50 Mg Tab 50 MG PO BID, TAB Discharge Exam Physical Exam: General Appearance: no apparent distress Eyes: EOMI ENT: hearing grossly normal Neck: trachea midline, + pertinent finding (ost - R>L Cspine paraspinals high tone/tender/decreased ROM - unwinding - pt tolerated well) Respiratory/Chest: no respiratory distress, no accessory muscle use Extremities: normal inspection 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 Was found to have elevated LFT's. RUQ pain, elevated LFTs: -GI consult appreciate recs; CRISTINA pending. IgG was not elevated. -s/p ERCP - mild sludge - after ERCP and stenting enzymes trending down -Continue to follow CMP as outpt later this week then periodically -Continue MIVF, NPO except for ice chips -stable for discharge to home w PCP and GI follow up T2DM -resume home meds at discharge HLD -resume Lipitor 20 mg daily since biliary source likley for elevated LFTs. obviously if AST/ALT were to trend up again, then stop lipitor and follow Reflex sympathetic dystrophy, fibromyalgia -Continue Flexeril 10 mg HS PRN, Gabapentin 100 mg daily, Meloxicam 15 mg daily , Oxycodone 10 mg daily and trial of OMT w PCP neck pain / cervical somatic dysfunction -OMT as above, tolerated well Migraines -Continue Topamax 50 mg BID Insomnia -Has Ambien PRN- states she rarely uses, will hold for now GERD -Protonix daily while inpatient- resume Prilosec at discharge Incidental Nodular lesion superior/anterior to bladder -10 x 9 mm nodular lesion superior and anterior to the urinary bladder appears new from prior study and may reflect a lymph node or indeterminate lower mesenteric nodule. DVT prophylaxis -Lovenox SQ daily stable for discharge to home Total Time Spent: Greater than 30 minutes (separate of time spent on OMT) This includes examination of the patient, discharge planning, medication reconciliation, and communication with other providers. Discharge Instructions Please refer to the electronic Patient Visit Report (Discharge Instructions) for additional information. Follow-Up Dr Anton next week, f/u CMP later this week and periodically thereafter
[2018-01-10 10:44] VITALS: BP 116/66; PULSE 65; TEMP 36.9; O2SAT 94
[2018-01-10] MEDS ORDERED: DICLOFENAC SOD 1% GEL 100 GM TUBE EXT SCH (13:00)
== END 2018-01-10 11:55 | disposition home or self-care (01) | DRG 445 ==
LOC: C.EDB 14:18 → C.MSW 16:33 → ENRESERV 16:44
PROVIDERS: ADMIT Family Medicine; ATTEND Family Medicine
PROC: 0DB48ZX Excision of Esophagogastric Junction, Via Natural or Artificial Opening Endoscopic, Diagnostic (ICD-10-PCS; principal; 2018-01-08 15:00)
PROC: 0F998ZZ Drainage of Common Bile Duct, Via Natural or Artificial Opening Endoscopic (ICD-10-PCS; principal; 2018-01-08 15:00)
PROC: 0F798ZZ Dilation of Common Bile Duct, Via Natural or Artificial Opening Endoscopic (ICD-10-PCS; principal; 2018-01-08 15:00)
DX: K83.1 Obstruction of bile duct (principal); G90.523 Complex regional pain syndrome I of lower limb, bilateral; E11.9 Type 2 diabetes mellitus without complications; E78.5 Hyperlipidemia, unspecified; M79.7 Fibromyalgia; M99.01 Segmental and somatic dysfunction of cervical region; G43.909 Migraine, unspecified, not intractable, without status migrainosus; G47.00 Insomnia, unspecified; K21.9 Gastro-esophageal reflux disease without esophagitis; K22.70 Barrett's esophagus without dysplasia; R93.5 Abnormal findings on diagnostic imaging of other abdominal regions, including retroperitoneum; Z87.440 Personal history of urinary (tract) infections; Z87.891 Personal history of nicotine dependence; Z90.49 Acquired absence of other specified parts of digestive tract; Z79.1 Long term (current) use of non-steroidal anti-inflammatories (NSAID); Z79.84 Long term (current) use of oral hypoglycemic drugs; Z79.891 Long term (current) use of opiate analgesic; Z79.899 Other long term (current) drug therapy; Z91.040 Latex allergy status; Z88.0 Allergy status to penicillin; Z88.1 Allergy status to other antibiotic agents; Z88.2 Allergy status to sulfonamides; Z88.8 Allergy status to other drugs, medicaments and biological substances

== ENCOUNTER 2018-01-24 20:04 | Emergency (ER) | payer BC, OTHER ==
[~2018-01-24 20:04] MED LIST changes: +GABA-112 PO; +MELO-83 PO; +VLTG EXT; -ZOLP1TAB PO
[2018-01-24 20:21] VITALS: TEMP 36.8; Ht 165.1 cm
[2018-01-24] MEDS ORDERED: HYDROmorphone INJ 1 MG/ML SYR IV STA (20:44)
[2018-01-24] MEDS ORDERED: SODIUM CHLORIDE 0.9% 1000ML 1,000 ML IV STA (20:44)
[2018-01-24] MEDS ORDERED: ONDANSETRON INJ 2 MG/ML 2 ML VIAL IV STA (20:44)
[2018-01-24] MEDS ORDERED: DICL1GEL12 TOP (21:07)
[2018-01-24] MEDS ORDERED: OXYC1TAB3 PO (21:07)
[2018-01-24] MEDS ORDERED: MILK175C3 PO (21:07)
[2018-01-24 21:29] LABS: BASO % 0.4 %; BASO ABS # 0.05 K/uL (0-0.2); EOS ABS # 0.12 K/uL (0-0.5); HEMATOCRIT 38.9 % (37-47); HEMOGLOBIN 13.8 g/dL (12.0-16.0); IG# 0.03 K/uL (0.00-0.02); LYMPH % 21.4 %; LYMPH ABS # 2.56 K/uL (1.2-3.4); MEAN CELL VOLUME 89.2 fL (80-100); MEAN CORPUSCULAR HEMOGLOBIN 31.7 pg (25-34); MEAN CORPUSCULAR HGB CONC 35.5 g/dl (32-36); MEAN PLATELET VOLUME 9.1 fL (7.4-10.4); MONO % 5.8 %; NEUT % 71.1 %; NEUT ABS # 8.51 K/uL (1.4-6.5); PLATELET COUNT 256 K/uL (130-400); RED CELL DISTRIBUTION WIDTH SD 42.2 fL (36.4-46.3); WHITE BLOOD COUNT 11.97 K/uL (4.8-10.8)
[2018-01-24 21:48] LABS: ALBUMIN 4.1 gm/dl (3.4-5.0); ALT/SGPT 29 U/L (12-78); AST/SGOT 18 U/L (15-37); BLOOD UREA NITROGEN 22 mg/dl (7-18); CALCIUM 9.1 mg/dl (8.5-10.1); CARBON DIOXIDE 24 mmol/L (21-32); CREATININE 1.31 mg/dl (0.60-1.20); GLUCOSE 154 mg/dl (70-99); LIPASE 206 U/L (73-393); POTASSIUM 3.7 mmol/L (3.5-5.1); SODIUM 140 mmol/L (136-145)
[2018-01-24 21:50] LABS: ALKALINE PHOSPHATASE 87 U/L (45-117); TOTAL PROTEIN 7.7 gm/dl (6.4-8.2)
--- NOTE | 2018-01-24 22:20 | DIAGNOSTIC IMAGING REPORT ---
GALLBLADDER-ABD LIMITED CLINICAL HISTORY: ABDOMINAL PAIN/GI nausea TECHNIQUE: Ultrasound COMPARISON STUDY: 01/07/2018 FINDINGS: Prior cholecystectomy. Common bile duct 5 mm. Liver is uniform. Pancreas and right kidney are unremarkable. No evidence for hydronephrosis. IMPRESSION: Negative study post cholecystectomy. The above report was generated using voice recognition software. It may contain grammatical, syntax or spelling errors. Electronically signed by: Lemuel Garcia M.D. 01/24/2018 10:18 PM Dictated Date/Time: 01/24/2018 10:17 PM
[2018-01-24 22:24] VITALS: BP 139/81; PULSE 73; O2SAT 96
[2018-01-24] MEDS ORDERED: ONDANSETRON HOME PACK 4MG OD TAB PO ONE (22:45)
--- NOTE | 2018-01-25 00:47 | EMERGENCY ROOM VISIT NOTE ---
ED Visit Note First contact with patient: 20:25 Chief Complaint: Right-sided back pain. History of Present Illness: Ms. Ayala is a 57-year-old white female who ambulates into the ED complaining of right flank pain. Historically patient status post cholecystectomy and has a history of Fregoso's esophagus, fibromyalgia reflex sympathetic dystrophy, renal colic. She was seen in this ED 14 days ago and was admitted for right flank pain and elevated liver enzymes. During her admission and ERCP was performed which showed sludge in the common bile duct. Her liver enzymes returned to normal and she was discharged home. She reports she was not seen by Dr. Ohara who performed her ERCP since being discharged but was seen by her primary care provider. She reports generally she has not been feeling herself since being discharged but has had no severe pain. Patient then reports that 2 days ago she picked up a gas can and developed severe right flank pain. Since that time her pain has been constant but has waxed and waned in intensity. She reports yesterday she was still experiencing some discomfort but was feeling better. This evening after eating approximately 2 hours ago she reports she had a severe exacerbation of her pain. Currently she describes a gripping sensation in the right flank. She rates her discomfort 10/10. Her pain is non-radiating. Her pain worsens with deep inspiration, palpation of the flank, palpation of the right upper and mid quadrant abdomen. She has not identified any alleviating factors related to the pain. She has not taken any medications for her discomfort prior to arrival at the hospital. Associated with her discomfort she reports she has been nauseated with vomiting of clear fluids, she has the "taste of copper" in her mouth, and she has been having chills but no araceli fever. She denies skin eruptions, skin color changes, upper respiratory tract symptoms , cough, wheezing, shortness of breath, decreased appetite, diarrhea, constipation, rectal bleeding, black/tarry stools, urinary symptoms, hematuria, vaginal bleeding, vaginal discharge. Review of Systems: As noted above in history of present illness. All body systems were reviewed and found to be negative as noted above. Past Medical History: As previously noted, anxiety, depression, diabetes, dyslipidemia, hypertension, left ureter calculus, sleep apnea and status post hysterectomy, section and lumbar laminectomy. Current Medications: Lipitor, Flexeril, Topamax, Glucophage, Prilosec, oxycodone , meloxicam, Neurontin, OxyIR, Voltaren, milk thistle. Allergies to Medications: Cephalexin, gabapentin, latex, penicillin, sulfa and pregabalin. Social History: Patient is not employed; she feels safe in her home environment ; she denies tobacco use. Physical Examination: Vital Signs: Date Time Temp Pulse Resp B/P (MAP) Pulse Ox O2 Delivery O2 Flow Rate FiO2 01/24/18 22:24 73 16 139/81 96 Room Air 01/24/18 20:54 87 01/24/18 20:21 36.8 93 18 119/82 99 Room Air GENERAL: 57-year-old female in moderate distress due to pain, nontoxic-appearing , afebrile and hemodynamically stable. Patient is anxious and tearful. NEUROLOGICAL: Awake, alert and oriented to person, place and time. Answering questions appropriately and following commands. Normal gait. Good hand eye coordination. No focal motor or sensory deficits. SKIN: Warm, dry and pink. No soft tissue eruptions or trauma noted. HEENT: Atraumatic and normocephalic. PERRLA. Sclera white and conjunctiva pink. No drainage from naris. Oral cavity moist and pink. Pharynx is nonerythematous or edematous. Speech normal. No lymphadenopathy. Trachea midline. No jugular venous distention. BACK: No tenderness over the bony spine. Moderate right-sided CVA tenderness to palpation and percussion. THORAX: Lungs sounds are clear to auscultation and equal bilaterally with symmetrical chest wall. No wheezing, rales or rhonchi. No crepitus, tenderness , subcutaneous air or deformities noted. HEART: Regular rate and rhythm. No gallops, rubs or murmurs are appreciated. ABDOMEN: Obese and soft with moderate right upper quadrant and right mid quadrant tenderness. Positive bowel sounds in all quadrants. No guarding, rigidity or organomegaly. EXTREMITIES: Moves all extremities well on command and with purpose. All distal neurovascular statuses are intact and equal bilaterally. No calf tenderness or cords. ED Course: Patient is assessed as noted above. Patient's medication list was reviewed. Laboratory Testing: Test 01/24/18 21:00 01/24/18 21:14 Range/Units Urine Color YELLOW Urine Appearance CLEAR CLEAR Urine pH 5.0 4.5-7.5 Urine Specific [place] 1.024 1.000-1.030 Urine Protein NEG NEG Urine Glucose (UA) NEG NEG Urine Ketones NEG NEG Urine Occult Blood NEG NEG Urine Nitrite NEG NEG Urine Bilirubin NEG NEG Urine Urobilinogen NEG NEG Urine Leukocyte Esterase NEG NEG White Blood Count 11.97 4.8-10.8 K/uL Red Blood Count 4.36 4.2-5.4 M/uL Hemoglobin 13.8 12.0-16.0 g/dL Hematocrit 38.9 37-47 % Mean Corpuscular Volume 89.2 80-100 fL Mean Corpuscular Hemoglobin 31.7 25-34 pg Mean Corpuscular Hemoglobin Concent 35.5 32-36 g/dl Platelet Count 256 130-400 K/uL Mean Platelet Volume 9.1 7.4-10.4 fL Neutrophils (%) (Auto) 71.1 % Lymphocytes (%) (Auto) 21.4 % Monocytes (%) (Auto) 5.8 % Eosinophils (%) (Auto) 1.0 % Basophils (%) (Auto) 0.4 % Neutrophils # (Auto) 8.51 1.4-6.5 K/uL Lymphocytes # (Auto) 2.56 1.2-3.4 K/uL Monocytes # (Auto) 0.70 0.11-0.59 K/uL Eosinophils # (Auto) 0.12 0-0.5 K/uL Basophils # (Auto) 0.05 0-0.2 K/uL RDW Standard Deviation 42.2 36.4-46.3 fL RDW Coefficient of Variation 13.0 11.5-14.5 % Immature Granulocyte % (Auto) 0.3 % Immature Granulocyte # (Auto) 0.03 0.00-0.02 K/uL Sodium Level 140 136-145 mmol/L Potassium Level 3.7 3.5-5.1 mmol/L Chloride Level 109 98-107 mmol/L Carbon Dioxide Level 24 21-32 mmol/L Anion Gap 7.0 3-11 mmol/L Blood Urea Nitrogen 22 7-18 mg/dl Creatinine 1.31 0.60-1.20 mg/dl Estimated GFR () 53.0 Estimated GFR (Non- 45.7 BUN/Creatinine Ratio 17.1 10-20 Random Glucose 154 70-99 mg/dl Calcium Level 9.1 8.5-10.1 mg/dl Total Bilirubin 0.8 0.2-1 mg/dl Direct Bilirubin 0.2 0-0.2 mg/dl Aspartate Amino Transf (AST/SGOT) 18 15-37 U/L Alanine Aminotransferase (ALT/SGPT) 29 12-78 U/L Alkaline Phosphatase 87 45-117 U/L Total Protein 7.7 6.4-8.2 gm/dl Albumin 4.1 3.4-5.0 gm/dl Lipase 206 73-393 U/L Right Upper Quadrant Ultrasound: Was reviewed by myself and read by the radiologist showing prior cholecystectomy, common bile duct measuring 5 mm, liver is uniform. Pancreas and right kidney are unremarkable and no evidence of hydronephrosis. Patient was hydrated with normal saline and received 1 mg of Dilaudid IV for pain and 4 mg of Zofran IV. Patient was reassessed multiple times during her stay in the emergency department. Patient's case was reviewed with Dr. Serrato; we agreed on diagnostic approach, treatment, disposition and plan. Patient was educated about today's findings and instructed on her treatment plan ; she verbalized understanding and agreement with this plan. Clinical Impression: Right flank pain. Right upper quadrant pain. Decision-Making: Initially my differential diagnosis I considered hepatitis, pancreatitis, ureter calculus, pyelonephritis, constipation, bowel obstruction and other causes. Disposition: Patient discharged home in stable condition accompanied by her ; prior to departure she was reassessed and subjectively reported she was pain-free. Plan: Patient was encouraged to continue her current medications as prescribed. Patient was prescribed Zofran 4 mg every 6 hours as needed for nausea/vomiting. Patient was encouraged to use a bland liquid diet for the next 48 hours. Patient was encouraged to follow-up with her PCP for continued care and treatment. Patient was encouraged return to the ED for worsening/uncontrolled pain, uncontrolled vomiting, fevers or any new/concerning symptoms.
== END 2018-01-24 22:53 | disposition home or self-care (01) ==
LOC: C.EDB 20:06 → C.EDA 22:53
DX: R10.11 Right upper quadrant pain (principal); F41.9 Anxiety disorder, unspecified; F32.9 Major depressive disorder, single episode, unspecified; E11.9 Type 2 diabetes mellitus without complications; E78.5 Hyperlipidemia, unspecified; I10 Essential (primary) hypertension; G47.30 Sleep apnea, unspecified; Z79.899 Other long term (current) drug therapy; Z88.1 Allergy status to other antibiotic agents; Z88.8 Allergy status to other drugs, medicaments and biological substances; Z88.0 Allergy status to penicillin; Z88.2 Allergy status to sulfonamides; Z91.040 Latex allergy status

== ENCOUNTER 2018-02-01 20:00 | Emergency (ER) | payer BC, OTHER ==
[~2018-02-01] VITALS: Ht 167.6 cm; Wt 96.4 kg
[~2018-02-01 20:00] MED LIST changes: -VLTG EXT
[2018-02-01 20:04] VITALS: TEMP 37.5; Ht 167.6 cm; Wt 96.4 kg
[2018-02-01] MEDS ORDERED: SODIUM CHLORIDE 0.9% 1000ML 1,000 ML IV STA (20:19)
[2018-02-01] MEDS ORDERED: OXYC1TAB3 PO (21:07)
[2018-02-01] MEDS ORDERED: DICL1GEL12 TOP (21:07)
[2018-02-01] MEDS ORDERED: MILK175C3 PO (21:07)
[2018-02-01 21:12] LABS: HEMATOCRIT 37.4 % (37-47); HEMOGLOBIN 13.2 g/dL (12.0-16.0); MEAN CELL VOLUME 88.6 fL (80-100); MEAN CORPUSCULAR HEMOGLOBIN 31.3 pg (25-34); MEAN CORPUSCULAR HGB CONC 35.3 g/dl (32-36); MEAN PLATELET VOLUME 9.1 fL (7.4-10.4); PLATELET COUNT 207 K/uL (130-400); RED CELL DISTRIBUTION WIDTH CV 13.3 % (11.5-14.5); WHITE BLOOD COUNT 8.46 K/uL (4.8-10.8)
[2018-02-01] MEDS ORDERED: TURM1CAP2 PO (21:12)
[2018-02-01] MEDS ORDERED: MISCCAP80 PO (21:12)
[2018-02-01] MEDS ORDERED: OMEG10007 PO (21:12)
[2018-02-01 21:21] LABS: PTT PATIENT 23.3 SECONDS (21.0-31.0)
--- NOTE | 2018-02-01 21:23 | EMERGENCY ROOM VISIT NOTE ---
History Report prepared by Tessy: Margarito De La Vega Under the Supervision of: Dr. Carlos Sepulveda M.D. First contact with patient: 20:09 Chief Complaint: ABDOMINAL PAIN Stated Complaint: PEEING BLOOD History of Present Illness The patient is a 58 year old female who presents to the Emergency Room with complaints of intermittent blood in her urine beginning prior to arrival. The patient states she went to the restroom after showering and noticed an odd smell. She reports she wiped after urinating and noticed there was blood on the toilet paper and in the bowl. The patient notes she got ready and came to the ED. She states she had to use the restroom once more prior to coming to the ED and there was blood in her urine again. The patient reports she has a history of a kidney stone the last time she had blood in her urine. She notes she had severe flank pain with her stone, and she denies current flank pain. The patient also notes a history of kidney infections when she was younger. The patient states she only ate a bowl of Cheerios today because she has been experiencing RUQ abdominal pain for the past few weeks. She denies burning with urination, changes in urinary frequency, taking a blood thinner, and fevers. The patient reports she takes a statin and medication for diabetes, GERD, migraines, and herbal medication. She reports she had surgery on her liver on January 10. The patient notes she has not felt right since her surgery. She states she has been experiencing intermittent RUQ abdominal pain. The patient reports she was evaluated by in the ED and by her PCP a little over a week ago. She notes she had ultrasounds that were negative and was told to eat a lot of bone broth. The patient states she has been eating bone broth with other soft foods, and it is not helping. She reports the abdominal pain was under control today, but she was too afraid to eat because she thought it would cause more pain. The patient notes she has a history of right sided RSD and fibromyalgia that is activated when her abdominal pain is severe. Review of EMR states the patient had an ERCP with a sphincterotomy. This was completed because of elevated LFTs and biliary sludge. Source of History: patient Onset: [employer] Symptom Intensity: 2 episodes Quality: other (blood in her urine) Timing: intermittent Associated Symptoms: + abdominal pain, No fevers Note: Associated symptoms: odorous urine, Denies: flank pain, burning with urination, chest in urinary frequency Review of Systems See HPI for pertinent positives & negatives. A total of 10 systems reviewed and were otherwise negative. Past Medical & Surgical Medical Problems: (1) Anxiety disorder (2) Barretts esophagus (3) Depressive disorder (4) Diabetes (5) Dyslipidemia (6) Elevated LFTs (7) Fibromyalgia (8) Gastroesophageal reflux disease (9) Hypertension (10) Left ureteral calculus (11) Reflex sympathetic dystrophy (12) Renal colic on left side (13) RSD (reflex sympathetic dystrophy) (14) Sleep apnea (15) Syncopal episodes Surgical Problems: (1) H/O: hysterectomy (2) History of section (3) History of lumbar laminectomy (4) Hx of cholecystectomy Family History Cancer Diabetes mellitus FH: heart disease FHx: gallbladder disease FHx: lung disease Hypertension Kidney disease Kidney stones Social History Smoking Status: Former Smoker Drug Use: none Marital Status: Housing Status: lives with family Occupation Status: retired Current/Historical Medications Scheduled Atorvastatin (Lipitor), 20 MG PO QPM Fish Oil ([place]-3), 1 CAP PO DAILY Meloxicam (Meloxicam), 15 MG PO DAILY Metformin Hcl (Glucophage), 1,000 MG PO BID Milk Thistle (Silybum Marianum (Milk Thistle), 175 MG PO DAILY Omeprazole (Prilosec), 40 MG PO DAILY Oxycodone Hcl (Oxycodone Hcl Er), 10 MG PO DAILYBB Probiotic Product (Probiotic), 1 CAP PO DAILY Topiramate (Topamax), 50 MG PO BID Turmeric (Curcuma Longa) (Turmeric), 1 TAB PO DAILY Scheduled PRN Cyclobenzaprine Hcl (Flexeril), 10 MG PO HS PRN for Muscle Spasm Diclofenac Sodium (Topical) (Voltaren 1% Top Gel), 1 GM TOP QID PRN for Pain Oxycodone Immediate Rel Tab (Roxicodone Ir), 5 MG PO DAILYBB PRN for Breakthrough Pain Allergies Coded Allergies: Cephalexin (Unverified Allergy, Severe, ANAPHYLAXIS, 07/15/17) Penicillins (Unverified Allergy, Severe, ANAPHYLAXIS, 07/15/17) Sulfa Antibiotics (Unverified Allergy, Severe, ANAPHYLAXIS, 07/15/17) Gabapentin (Verified Allergy, Mild, HIVES, 07/15/17) Pregabalin (Verified Allergy, Mild, HIVES, 07/15/17) Latex (Unverified Allergy, Unknown, rash, 07/15/17) Physical Exam Vital Signs Date Time Temp Pulse Resp B/P (MAP) Pulse Ox O2 Delivery O2 Flow Rate FiO2 02/01/18 22:55 75 16 134/87 98 02/01/18 21:57 88 20 115/73 98 Room Air 02/01/18 20:04 37.5 103 20 129/72 98 Room Air Physical Exam GENERAL: Patient is in no acute distress. HEENT: No acute trauma, normocephalic atraumatic, mucous membranes moist, no nasal congestion, no scleral icterus. NECK: No stridor, no adenopathy, no meningismus, trachea is midline. LUNGS: Clear to auscultation bilaterally, no wheeze, no rhonchi, breath sounds equal. HEART: Without murmurs gallops or rubs, regular rate and rhythm. ABDOMEN: Soft, moderately tender in the RUQ, bowel sounds positive, no hernias, no peritonitis. EXTREMITIES: No cyanosis or edema, full range of motion of all the joints without pain or difficulty, no signs for acute trauma. NEUROLOGIC: Oriented x 3, no acute motor or sensory deficits, no focal weakness. SKIN: No rash, possible mild jaundice noted, no diaphoresis. Medical Decision & Procedures ER Provider Diagnostic Interpretation: CT results as stated below per my review and radiologist interpretation: CT SCAN OF THE ABDOMEN AND PELVIS WITHOUT CONTRAST CLINICAL HISTORY: Flank pain and hematuria COMPARISON STUDY: 01/07/2018 TECHNIQUE: CT scan of the abdomen and pelvis was performed from the lung bases to the proximal femurs. Images are reviewed in the axial, sagittal, and coronal planes. IV contrast was not administered for this examination. A dose lowering technique was utilized adhering to the principles of ALARA. CT DOSE: 1416.92 mGy.cm FINDINGS: Lower chest: The heart is normal in size and configuration, without pericardial effusion. The lung bases and pleural spaces are clear. Liver: The unenhanced liver is normal in size, contour, and attenuation. There is no intrahepatic biliary ductal dilatation. Gallbladder: Surgically absent Spleen: Normal in size and attenuation. Pancreas: Unremarkable. Adrenal glands: Unremarkable. Kidneys: No renal, ureteral, or bladder calculi are visualized. 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 Bowel: There are no transition zones indicate bowel obstruction. There is no evidence of acute appendicitis. There is no evidence of acute diverticulitis. Peritoneum: There is no intraperitoneal free air or abdominal ascites. Vasculature: The abdominal aorta is normal in course and caliber. Adenopathy: None. Pelvic viscera: The uterus is surgically absent. A 9 mm low-attenuation nodule is again visualized adjacent to the bladder. This could represent a tiny bladder diverticulum or extravesical nodule. Skeletal structures: No destructive osseous lesions are seen. IMPRESSION: 1. No acute intra-abdominal or pelvic findings 2. No evidence of bowel obstruction. No evidence of free air 3. No renal, ureteral, or bladder calculi identified. Electronically signed by: Jean Pierre Gillette M.D. 02/01/2018 9:28 PM Dictated Date/Time: 02/01/2018 9:23 PM Laboratory Results 02/01/18 20:45 Red Blood Count 4.22, Mean Corpuscular Volume 88.6, Mean Corpuscular Hemoglobin 31.3, Mean Corpuscular Hemoglobin Concent 35.3, Mean Platelet Volume 9.1, Neutrophils (%) (Auto) 63.7, Lymphocytes (%) (Auto) 27.5, Monocytes (%) (Auto) 6.5, Eosinophils (%) (Auto) 1.7, Basophils (%) (Auto) 0.5, Neutrophils # (Auto) 5.39, Lymphocytes # (Auto) 2.33, Monocytes # (Auto) 0.55, Eosinophils # (Auto) 0.14, Basophils # (Auto) 0.04 02/01/18 20:45 Test 02/01/18 00:00 02/01/18 20:45 Urine Color RED Urine Appearance SLIGHTLY CLOUDY (CLEAR) Urine pH (4.5-7.5) Urine Specific [place] 1.022 (1.000-1.030) Urine Protein (NEG) Urine Glucose (UA) (NEG) Urine Ketones (NEG) Urine Occult Blood (NEG) Urine Nitrite (NEG) Urine Bilirubin (NEG) Urine Urobilinogen (NEG) Urine Leukocyte Esterase (NEG) Urine RBC 5-10 /hpf (0-4) Urine WBC 1-5 /hpf (0-5) Urine Epithelial Cells >30 /lpf (0-5) Urine Calcium Oxalate Crystals PRESENT (NONE PRSENT) Urine Bacteria NEG (NEG) Urine Hyaline Casts 1-5 /lpf (0-5) White Blood Count 8.46 K/uL (4.8-10.8) Red Blood Count 4.22 M/uL (4.2-5.4) Hemoglobin 13.2 g/dL (12.0-16.0) Hematocrit 37.4 % (37-47) Mean Corpuscular Volume 88.6 fL (80-100) Mean Corpuscular Hemoglobin 31.3 pg (25-34) Mean Corpuscular Hemoglobin Concent 35.3 g/dl (32-36) Platelet Count 207 K/uL (130-400) Mean Platelet Volume 9.1 fL (7.4-10.4) Neutrophils (%) (Auto) 63.7 % Lymphocytes (%) (Auto) 27.5 % Monocytes (%) (Auto) 6.5 % Eosinophils (%) (Auto) 1.7 % Basophils (%) (Auto) 0.5 % Neutrophils # (Auto) 5.39 K/uL (1.4-6.5) Lymphocytes # (Auto) 2.33 K/uL (1.2-3.4) Monocytes # (Auto) 0.55 K/uL (0.11-0.59) Eosinophils # (Auto) 0.14 K/uL (0-0.5) Basophils # (Auto) 0.04 K/uL (0-0.2) RDW Standard Deviation 43.0 fL (36.4-46.3) RDW Coefficient of Variation 13.3 % (11.5-14.5) Immature Granulocyte % (Auto) 0.1 % Immature Granulocyte # (Auto) 0.01 K/uL (0.00-0.02) Red Blood Cell Morphology Unremarkable Prothrombin Time 10.4 SECONDS (9.0-12.0) Prothromb Time International Ratio 1.0 (0.9-1.1) Activated Partial Thromboplast Time 23.3 SECONDS (21.0-31.0) Partial Thromboplastin Ratio 0.9 Anion Gap 8.0 mmol/L (3-11) Est Creatinine Clear Calc Drug Dose 65.0 ml/min Estimated GFR () 62.9 Estimated GFR (Non- 54.3 BUN/Creatinine Ratio 18.1 (10-20) Calcium Level 9.1 mg/dl (8.5-10.1) Total Bilirubin 0.6 mg/dl (0.2-1) Aspartate Amino Transf (AST/SGOT) 21 U/L (15-37) Alanine Aminotransferase (ALT/SGPT) 29 U/L (12-78) Alkaline Phosphatase 63 U/L (45-117) Total Protein 7.2 gm/dl (6.4-8.2) Albumin 4.0 gm/dl (3.4-5.0) Globulin 3.2 gm/dl (2.5-4.0) Albumin/Globulin Ratio 1.3 (0.9-2) Lipase 229 U/L (73-393) Laboratory results reviewed by me. Medications Administered Medications (Trade) Dose Ordered Sig/Shruthi Route Start Time Stop Time Status Last Admin Dose Admin Sodium Chloride 1,000 ml @ 999 mls/hr Q1H1M STAT IV 02/01/18 20:19 02/01/18 21:19 DC 02/01/18 20:19 999 MLS/HR ED Course 2010: The patient was evaluated in room A11B. A complete history and physical exam was performed. 2019: Ordered Sodium Chloride 1000 ml @ 999 mls/hr IV 0: I reevaluated the patient. She is feeling better. I informed her of her current test results. 2240: Reevaluated the patient. Discussed results and discharge instructions: she verbalized understanding and agreement. The patient is ready for discharge. Medical Decision The patient is a 58 year old female who presents to the ED with complaints of two episodes of blood in her urine. Differential diagnoses considered include UTI, kidney stone, ureteral stone, renal mass, bladder tumor, renal failure, electrolyte imbalance, liver failure. There is no leukocytosis or concerning anemia. No significant electrolyte abnormality, kidney failure, hepatitis or pancreatitis. Urinalysis does show hematuria, no infection. Abdominal and pelvis CT does not show any evidence for hydronephrosis, no bowel obstruction, no evidence for free air or for diverticulitis. The patient received IV saline, she seems comfortable. The patient is being referred to urology. Further workup is required. The cause for the hematuria is unclear. She will avoid aspirin and NSAIDs. If worsening, she can return. Of note, the right upper quadrant abdominal pain has been more of an ongoing issue for her, it is not new. Medication Reconcilliation Current Medication List: was personally reviewed by me Blood Pressure Screening Patient's blood pressure: Normal blood pressure Blood pressure disposition: Did not require urgent referral Impression Primary Impression: Hematuria Additional Impression: RUQ abdominal pain Scribe Attestation The scribe's documentation has been prepared under my direction and personally reviewed by me in its entirety. I confirm that the note above accurately reflects all work, treatment, procedures, and medical decision making performed by me. Departure Information Dispostion Home / Self-Care Referrals Roman Kong M.D. Forms Call Back Authorization, HOME CARE DOCUMENTATION FORM, IMPORTANT VISIT INFORMATION Patient Instructions My [facility] [employer] Additional Instructions stop aspirin, exedrin, ibuprofen, aleve, motrin for now stay well hydrated return for fever, worsening symptoms, vomiting talk with urology tomorrow about your symptoms to set up an appt Problem Qualifiers
[2018-02-01 21:28] LABS: CALCIUM 9.1 mg/dl (8.5-10.1); CREATININE 1.13 mg/dl (0.60-1.20); POTASSIUM 3.6 mmol/L (3.5-5.1)
--- NOTE | 2018-02-01 21:30 | DIAGNOSTIC IMAGING REPORT ---
CT SCAN OF THE ABDOMEN AND PELVIS WITHOUT CONTRAST CLINICAL HISTORY: Flank pain and hematuria COMPARISON STUDY: 01/07/2018 TECHNIQUE: CT scan of the abdomen and pelvis was performed from the lung bases to the proximal femurs. Images are reviewed in the axial, sagittal, and coronal planes. IV contrast was not administered for this examination. A dose lowering technique was utilized adhering to the principles of ALARA. CT DOSE: 1416.92 mGy.cm FINDINGS: Lower chest: The heart is normal in size and configuration, without pericardial effusion. The lung bases and pleural spaces are clear. Liver: The unenhanced liver is normal in size, contour, and attenuation. There is no intrahepatic biliary ductal dilatation. Gallbladder: Surgically absent Spleen: Normal in size and attenuation. Pancreas: Unremarkable. Adrenal glands: Unremarkable. Kidneys: No renal, ureteral, or bladder calculi are visualized. 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 Bowel: There are no transition zones indicate bowel obstruction. There is no evidence of acute appendicitis. There is no evidence of acute diverticulitis. Peritoneum: There is no intraperitoneal free air or abdominal ascites. Vasculature: The abdominal aorta is normal in course and caliber. Adenopathy: None. Pelvic viscera: The uterus is surgically absent. A 9 mm low-attenuation nodule is again visualized adjacent to the bladder. This could represent a tiny bladder diverticulum or extravesical nodule. Skeletal structures: No destructive osseous lesions are seen. IMPRESSION: 1. No acute intra-abdominal or pelvic findings 2. No evidence of bowel obstruction. No evidence of free air 3. No renal, ureteral, or bladder calculi identified. Electronically signed by: Jean Pierre Gillette M.D. 02/01/2018 9:28 PM Dictated Date/Time: 02/01/2018 9:23 PM
[2018-02-01 21:31] LABS: TOTAL PROTEIN 7.2 gm/dl (6.4-8.2)
[2018-02-01 21:41] LABS: BASO % 0.5 %; BASO ABS # 0.04 K/uL (0-0.2); EOS % 1.7 %; EOS ABS # 0.14 K/uL (0-0.5); IG# 0.01 K/uL (0.00-0.02); LYMPH % 27.5 %; LYMPH ABS # 2.33 K/uL (1.2-3.4); MONO % 6.5 %; MONO ABS # 0.55 K/uL (0.11-0.59); NEUT % 63.7 %; NEUT ABS # 5.39 K/uL (1.4-6.5)
[2018-02-01 22:55] VITALS: BP 134/87; PULSE 75; O2SAT 98
== END 2018-02-01 22:55 | disposition home or self-care (01) ==
LOC: C.EDB 20:01 → C.EDA 22:55
DX: R31.9 Hematuria, unspecified (principal); R10.11 Right upper quadrant pain; Z87.442 Personal history of urinary calculi; E11.9 Type 2 diabetes mellitus without complications; K21.9 Gastro-esophageal reflux disease without esophagitis; Z98.890 Other specified postprocedural states; G90.50 Complex regional pain syndrome I, unspecified; F41.9 Anxiety disorder, unspecified; F32.9 Major depressive disorder, single episode, unspecified; E78.5 Hyperlipidemia, unspecified; I10 Essential (primary) hypertension; G47.30 Sleep apnea, unspecified; M79.7 Fibromyalgia; Z79.899 Other long term (current) drug therapy; Z88.1 Allergy status to other antibiotic agents; Z88.8 Allergy status to other drugs, medicaments and biological substances; Z88.0 Allergy status to penicillin; Z88.2 Allergy status to sulfonamides; Z91.040 Latex allergy status; K22.70 Barrett's esophagus without dysplasia; Z87.891 Personal history of nicotine dependence; Z90.49 Acquired absence of other specified parts of digestive tract; Z79.84 Long term (current) use of oral hypoglycemic drugs; Z79.891 Long term (current) use of opiate analgesic

== ENCOUNTER → 2018-02-04 | Outpatient (CLI) | payer BC, OTHER ==
[~2018-02-04] MED LIST changes: +DICL1GEL12 TOP; -GABA-112 PO; +MILK175C3 PO; +MISCCAP80 PO; +OMEG10007 PO; +OXYC1TAB3 PO; +TURM1CAP2 PO
== END | disposition home or self-care (01) ==
LOC: C.PATHSPEC 15:07
PROVIDERS: ATTEND Urology
DX: R31.0 Gross hematuria (principal); N20.0 Calculus of kidney

== ENCOUNTER → 2018-02-17 | Outpatient (CLI) | payer BC, OTHER ==
[2018-02-17 17:04] LABS: BASO % 0.5 %; BASO ABS # 0.03 K/uL (0-0.2); EOS % 2.2 %; EOS ABS # 0.13 K/uL (0-0.5); HEMATOCRIT 40.8 % (37-47); HEMOGLOBIN 14.1 g/dL (12.0-16.0); IG# 0.01 K/uL (0.00-0.02); LYMPH % 34.3 %; LYMPH ABS # 1.99 K/uL (1.2-3.4); MEAN CELL VOLUME 91.3 fL (80-100); MEAN CORPUSCULAR HEMOGLOBIN 31.5 pg (25-34); MEAN CORPUSCULAR HGB CONC 34.6 g/dl (32-36); MEAN PLATELET VOLUME 9.2 fL (7.4-10.4); MONO % 7.4 %; MONO ABS # 0.43 K/uL (0.11-0.59); NEUT % 55.4 %; NEUT ABS # 3.22 K/uL (1.4-6.5); PLATELET COUNT 267 K/uL (130-400); RED CELL DISTRIBUTION WIDTH CV 13.5 % (11.5-14.5); RED CELL DISTRIBUTION WIDTH SD 44.6 fL (36.4-46.3); WHITE BLOOD COUNT 5.81 K/uL (4.8-10.8)
[2018-02-17 17:41] LABS: ALBUMIN 3.8 gm/dl (3.4-5.0); ALKALINE PHOSPHATASE 77 U/L (45-117); ALT/SGPT 29 U/L (12-78); AST/SGOT 25 U/L (15-37); BLOOD UREA NITROGEN 17 mg/dl (7-18); CALCIUM 8.9 mg/dl (8.5-10.1); CARBON DIOXIDE 28 mmol/L (21-32); CHOLESTEROL 219 mg/dl (0-200); CREATININE 0.94 mg/dl (0.60-1.20); GLUCOSE 150 mg/dl (70-99); LDL CHOLESTEROL CALCULATED 124 mg/dl; POTASSIUM 4.3 mmol/L (3.5-5.1); SODIUM 139 mmol/L (136-145); TOTAL PROTEIN 7.5 gm/dl (6.4-8.2)
[2018-02-18 06:48] LABS: HEMOGLOBIN A1C 6.3 % (4.5-5.6)
== END | disposition home or self-care (01) ==
LOC: C.LABBC 12:26
PROVIDERS: ATTEND Neuromusculoskeletal Medicine & OMM
DX: E11.9 Type 2 diabetes mellitus without complications (principal); E78.5 Hyperlipidemia, unspecified; R53.83 Other fatigue

== ENCOUNTER 2022-10-30 08:41 | Observation (INO) ==
--- NOTE | 2022-10-09 14:04 | PAT Medication Instructions ---
Medication Instructions Date of Service October 09, 2022 Home Medications Medication Instructions Recorded lancets 30 gauge (OneTouch Delica #100 ea 12/24/20 Plus Lancet) cyclobenzaprine 10 mg tablet 10 mg PO HS PRN MUSCLE SPASMS #30 03/23/22 tabs blood-glucose meter (OneTouch #1 ea 06/19/22 Verio Meter) atorvastatin 20 mg tablet (Lipitor) 20 mg PO QPM #90 tabs 09/16/22 metformin 500 mg tablet 1,000 mg PO BID #360 tabs 09/16/22 blood sugar diagnostic (Oneuch #100 strips 10/06/22 Verio test strips) cyanocobalamin (vitamin B-12) 1,000 mcg tablet (Vitamin B-12) 1,000 mcg PO QAM acetaminophen 650 mg tablet,extended release (Tylenol Arthritis Pain) 650 mg PO UD PRN Pain pfvdhak-cljzjfhwhbwxm-bzillrcc 250 mg-250 mg-65 mg tablet (Excedrin Migraine) 1 tab PO UD PRN Migraine Headache calcium 300 mg chewable tablet 2 mg PO QAM polyethylene glycol 3350 17 gram/dose oral powder (Miralax) 17 g PO UD PRN Constipation biotin 5,000 mcg sublingual tablet 5,000 mcg sublingual DAILY cholecalciferol (vitamin D3) 50 mcg (2,000 unit) capsule 50 mcg PO QAM garlic 1,000 mg capsule 2,000 mg PO QAM krill oil 500 mg capsule 500 mg PO QAM magnesium 250 mg tablet 250 mg PO QAM vitamin K2 100 mcg capsule 100 mcg PO DAILY zinc 50 mg tablet 50 mg PO DAILY cyclobenzaprine 10 mg tablet 10 mg PO HS PRN MUSCLE SPASMS trazodone 100 mg tablet 100 mg PO UD PRN Sleep atorvastatin 20 mg tablet (Lipitor) 20 mg PO QPM metformin 500 mg tablet 1,000 mg PO BID ascorbic acid (vitamin C) 1,000 mg tablet (Vitamin C) 1 g PO DAILY azelastine 137 mcg (0.1 %) nasal spray aerosol 1 spray intranasal BID ferrous sulfate 325 mg (65 mg iron) tablet (iron) 325 mg PO DAILY hydroxyzine HCl 25 mg tablet 25 mg PO HS nystatin 100,000 unit/gram topical cream 1 applic topical UD PRN BREAST SKIN SORES/SKIN IRRITATION ondansetron 4 mg disintegrating tablet 4 mg PO UD PRN nausea and vomiting pantoprazole 40 mg tablet,delayed release 40 mg PO BID phenazopyridine 95 mg tablet 95 mg PO UD PRN HX RECURRENT UTI'S promethazine 25 mg rectal suppository 25 mg TN UD PRN nausea rimegepant 75 mg disintegrating tablet (Nurtec ODT) 75 mg PO Q2D sucralfate 100 mg/mL oral suspension 10 ml PO UD PRN STOMACH IRRITATION tramadol 50 mg tablet 50 mg PO BID trazodone 100 mg tablet 50 mg PO QAM RACING THOUGHTS Continue as directed rimegepant 75 mg disintegrating tablet (Nurtec ODT) 75 mg PO Q2D ASK your surgeon for instructions [id number]-pyurzlzezpjac-ptjkjdbt 250 mg-250 mg-65 mg tablet (Excedrin Migraine) 1 tab PO UD PRN Migraine Headache STOP taking 2 weeks before surgery biotin 5,000 mcg sublingual tablet 5,000 mcg sublingual DAILY garlic 1,000 mg capsule 2,000 mg PO QAM krill oil 500 mg capsule 500 mg PO QAM vitamin K2 100 mcg capsule 100 mcg PO DAILY STOP taking 24 hours before surgery nystatin 100,000 unit/gram topical cream 1 applic topical UD PRN BREAST SKIN SORES/SKIN IRRITATION DO NOT take the morning of surgery cyanocobalamin (vitamin B-12) 1,000 mcg tablet (Vitamin B-12) 1,000 mcg PO QAM calcium 300 mg chewable tablet 2 mg PO QAM polyethylene glycol 3350 17 gram/dose oral powder (Miralax) 17 g PO UD PRN Constipation cholecalciferol (vitamin D3) 50 mcg (2,000 unit) capsule 50 mcg PO QAM magnesium 250 mg tablet 250 mg PO QAM zinc 50 mg tablet 50 mg PO DAILY metformin 500 mg tablet 1,000 mg PO BID ascorbic acid (vitamin C) 1,000 mg tablet (Vitamin C) 1 g PO DAILY ferrous sulfate 325 mg (65 mg iron) tablet (iron) 325 mg PO DAILY phenazopyridine 95 mg tablet 95 mg PO UD PRN HX RECURRENT UTI'S sucralfate 100 mg/mL oral suspension 10 ml PO UD PRN STOMACH IRRITATION Take morning of surgery With a small sip of water, OTHERWISE NOTHING TO EAT OR DRINK AFTER MIDNIGHT: acetaminophen 650 mg tablet,extended release (Tylenol Arthritis Pain) 650 mg PO UD PRN Pain (if needed) azelastine 137 mcg (0.1 %) nasal spray aerosol 1 spray intranasal BID ondansetron 4 mg disintegrating tablet 4 mg PO UD PRN nausea and vomiting (if needed) pantoprazole 40 mg tablet,delayed release 40 mg PO BID promethazine 25 mg rectal suppository 25 mg TN UD PRN nausea (if needed) tramadol 50 mg tablet 50 mg PO BID trazodone 100 mg tablet 50 mg PO QAM RACING THOUGHTS (if needed) Take evening before surgery acetaminophen 650 mg tablet,extended release (Tylenol Arthritis Pain) 650 mg PO UD PRN Pain (if needed) polyethylene glycol 3350 17 gram/dose oral powder (Miralax) 17 g PO UD PRN Constipation (if needed) cyclobenzaprine 10 mg tablet 10 mg PO HS PRN MUSCLE SPASMS (if needed) trazodone 100 mg tablet 100 mg PO UD PRN Sleep (if needed) atorvastatin 20 mg tablet (Lipitor) 20 mg PO QPM metformin 500 mg tablet 1,000 mg PO BID azelastine 137 mcg (0.1 %) nasal spray aerosol 1 spray intranasal BID hydroxyzine HCl 25 mg tablet 25 mg PO HS ondansetron 4 mg disintegrating tablet 4 mg PO UD PRN nausea and vomiting (if needed) pantoprazole 40 mg tablet,delayed release 40 mg PO BID phenazopyridine 95 mg tablet 95 mg PO UD PRN HX RECURRENT UTI'S (if needed) promethazine 25 mg rectal suppository 25 mg TN UD PRN nausea (if needed) sucralfate 100 mg/mL oral suspension 10 ml PO UD PRN STOMACH IRRITATION (if needed) tramadol 50 mg tablet 50 mg PO BID Other Notes If you have any questions please call us at [phone] or [phone] or [phone] or [phone]
--- NOTE | 2022-10-15 09:59 | Anesthesiology Consultation ---
Date of Service October 15, 2022 Assessment & Plan (1) Encounter for pre-operative examination: Plan - awaiting booking change to overnight. - check BSG am DOS. - Outpatient joint assessment: Patient is currently scheduled for inpatient pathway. If re-evaluated pending system levels during current pandemic/surgeon requests outpatient pathway, patient is not recommended candidate for outpatient joint program from anesthesia standpoint. Nilsa with surgeon's office made aware. - Pt inquired if arrangements are needed for at home given steps without bannister and dogs at home. She also inquired as to if she needs metal testing for compatibility with joint replacement hardware. She was advised to call surgeon's office for information on these. She verbalized understanding, denied additional questions or concerns. I also relayed this information to Nilsa with surgeon's office. Chart Review Chart Review: Pending: Refer to Additional Notes / Consult section and Patient seen in Pre Admission Testing Teaching & Discussion Pre-Anesthesia Teaching/Discussion Notes: Instructed NPO after midnight before surgery, except medications with 15 cc of water. Medication instructions provided according to the PAT guidelines. History Surgery Operation Date: 10/30/22 11:45 Proposed Procedures p Left Total Shoulder Arthroplasty Reverse - Jose R Wilson, DO Height/Weight Height: 5 ft 6.5 in Weight: 82.554 kg Allergies Allergy/AdvReac Type Severity Reaction Status Date / Time cephalexin Allergy Unknown ANAPHYLAXIS Verified 10/08/22 13:19 doxycycline Allergy Unknown PT NOT SURE Verified 10/08/22 13:19 fentanyl Allergy Unknown "peeled my Verified 10/08/22 13:19 skin off" gabapentin Allergy Unknown tongue and Verified 10/15/22 10:40 skin swelling, difficulty breathing glipizide Allergy Unknown itchiness Verified 10/08/22 13:19 latex Allergy Unknown rash Verified 10/08/22 13:19 morphine Allergy Unknown "makes it Verified 10/08/22 13:19 hard to breathe" Penicillins Allergy Unknown ANAPHYLAXIS Verified 10/08/22 13:19 pregabalin Allergy Unknown HIVES Verified 10/08/22 13:19 Sulfa (Sulfonamide Allergy Unknown ANAPHYLAXIS/UNBEARABLE Verified 10/08/22 13:19 Antibiotics) ITCH amitriptyline AdvReac Unknown "make me Verified 10/08/22 13:19 sick" citalopram [From Celexa] AdvReac Unknown NO Verified 10/08/22 13:19 INTEREST TO DO DAILY ACTIVITIES - SEE NOTES duloxetine [From Cymbalta] AdvReac Unknown "Made me Verified 10/08/22 13:19 feel like a Zombie" nortriptyline AdvReac Unknown "make me Verified 10/08/22 13:19 sick" venlafaxine [From Effexor] AdvReac Unknown "made me Verified 10/08/22 13:19 feel like a zombie" JEWELRY AdvReac Unknown ENGAGMENT Uncoded 10/08/22 13:19 RING AT 22 YRS OLD, FINGER STARTED TURNING COLORS Medications Home Medications Medication Instructions Recorded Confirmed Last Taken cyanocobalamin (vitamin B-12) 1,000 mcg PO QAM 03/04/20 10/08/22 03/26/22 1,000 mcg tablet (Vitamin B-12) lancets 30 gauge ([employer] Delica #100 ea 12/24/20 08/10/22 Unknown Plus Lancet) acetaminophen 650 mg 650 mg PO UD PRN Pain 02/18/21 10/08/22 03/15/22 tablet,extended release (Tylenol Arthritis Pain) [id number]-hgbrvoswpkaiw-ausonfon 250 1 tab PO UD PRN Migraine Headache 05/10/21 10/08/22 03/15/22 mg-250 mg-65 mg tablet (Excedrin Migraine) calcium 300 mg chewable tablet 2 mg PO QAM 06/18/21 10/08/22 03/26/22 polyethylene glycol 3350 17 17 g PO UD PRN Constipation 06/18/21 10/08/22 06/17/21 gram/dose oral powder (Miralax) biotin 5,000 mcg sublingual tablet 5,000 mcg sublingual DAILY 11/12/21 10/08/22 03/26/22 cholecalciferol (vitamin D3) 50 50 mcg PO QAM 11/12/21 10/08/22 03/26/22 mcg (2,000 unit) capsule garlic 1,000 mg capsule 2,000 mg PO QAM 11/12/21 10/08/22 03/26/22 krill oil 500 mg capsule 500 mg PO QAM 11/12/21 10/08/22 03/26/22 magnesium 250 mg tablet 250 mg PO QAM 11/12/21 10/08/22 03/26/22 vitamin K2 100 mcg capsule 100 mcg PO DAILY 11/12/21 10/08/22 03/26/22 zinc 50 mg tablet 50 mg PO DAILY 11/12/21 10/08/22 03/26/22 cyclobenzaprine 10 mg tablet 10 mg PO HS PRN MUSCLE SPASMS #30 03/23/22 10/08/22 03/26/22 tabs blood-glucose meter (OneTouch #1 ea 06/19/22 08/10/22 Unknown Verio Meter) trazodone 100 mg tablet 100 mg PO UD PRN Sleep 07/27/22 10/08/22 Unknown atorvastatin 20 mg tablet (Lipitor) 20 mg PO QPM #90 tabs 09/16/22 10/08/22 Unknown metformin 500 mg tablet 1,000 mg PO BID #360 tabs 09/16/22 10/08/22 Unknown blood sugar diagnostic (OneTouch #100 strips 10/06/22 Unknown Verio test strips) ascorbic acid (vitamin C) 1,000 mg 1 g PO DAILY 10/08/22 10/08/22 Unknown tablet (Vitamin C) azelastine 137 mcg (0.1 %) nasal 1 spray intranasal BID 10/08/22 10/08/22 Unknown spray aerosol ferrous sulfate 325 mg (65 mg 325 mg PO DAILY 10/08/22 10/08/22 Unknown iron) tablet (iron) hydroxyzine HCl 25 mg tablet 25 mg PO HS 10/08/22 10/08/22 Unknown nystatin 100,000 unit/gram topical 1 applic topical UD PRN BREAST 10/08/22 10/08/22 Unknown cream SKIN SORES/SKIN IRRITATION ondansetron 4 mg disintegrating 4 mg PO UD PRN nausea and vomiting 10/08/22 10/08/22 Unknown tablet pantoprazole 40 mg tablet,delayed 40 mg PO BID 10/08/22 10/08/22 Unknown release phenazopyridine 95 mg tablet 95 mg PO UD PRN HX RECURRENT UTI'S 10/08/22 10/08/22 Unknown promethazine 25 mg rectal 25 mg TN UD PRN nausea 10/08/22 10/08/22 Unknown suppository rimegepant 75 mg disintegrating 75 mg PO Q2D 10/08/22 10/08/22 Unknown tablet (Nurtec ODT) sucralfate 100 mg/mL oral 10 ml PO UD PRN STOMACH IRRITATION 10/08/22 10/08/22 Unknown suspension tramadol 50 mg tablet 50 mg PO BID 10/08/22 10/08/22 Unknown trazodone 100 mg tablet 50 mg PO QAM RACING THOUGHTS 10/08/22 10/08/22 Unknown tramadol 50 mg tablet 50 mg PO Q6H PRN pain #30 tabs 10/16/22 Unknown Past Medical History Medical History (Updated 10/16/22 @ 16:33 by Krystin Montenegro PA-C) Anxiety Fregoso's esophagus Constipation Depressive disorder Diabetes mellitus, type 2 NIDDM Dyslipidemia Fatty liver disease, nonalcoholic unknown per pt Fibromyalgia GERD (gastroesophageal reflux disease) poorly controlled per pt, follows with [facility] Hearing deficit tinnitus History of anemia History of blood transfusion with delivery in 1970s History of colon polyps History of recurrent UTI (urinary tract infection) NO CURRENT S/S History of skin cancer nose and forehead, INTERVENTION FOR/ ? CURRENT SPOT / PLANS TO MAKE DERM MADDIE Hx of cardiac murmur pt denies Hypertension OCCASIONAL Hypotension OCC Insomnia Kidney stones hx of Memory impairment [facility] Migraines Palpitations chronic sensation of heart racing without change or worsening per pt, with anxiety per pt Reflex sympathetic dystrophy "right side" Sleep apnea "BORDERLINE SLEEP APNEA", NO CPAP/COULDN'T TOLERATE Stomach ulcer HX Tubular adenoma Patient denies h/o stroke, seizures, heart attack, heart failure, blood clots or blood transfusions. Exercise / Class Metabolic Activity II 4-5 Yardwork/Stairs/Walk up hill (occasional shortness of breath with 1 FOS, denies chest discomfort) Past Family History Family History (Updated 10/15/22 @ 10:50 by Krystin Montenegro PA-C) Unknown FHx: allergies Ovarian cancer Prostate cancer Myocardial infarction Breast cancer Grandfather Family hx of colon cancer Prostate cancer Hearing loss Cancer Asthma Son Suicide Mother Anxiety Depression Cancer Schizophrenia Daughter Anxiety Bipolar depression Family/Other Depression Aunt Breast cancer Aunt Ovarian cancer Cardiac disorder Myocardial infarction Grandmother Hearing loss Cardiac disorder Hypertension Stroke Family/Other Cardiac disorder Grandfather Family history of diabetes mellitus Past Surgical History Surgical History History of back surgery multiple procedures with "long needles inserted into my back" History of bladder surgery bladder tack History of section X3 History of cholecystectomy History of colonoscopy History of ERCP 01/08/1818 Grade 1 view, MAC 3, ETT 7. History of eye surgery TOTAL OF 5 BETWEEN FEBRUARY - JUL 2022 1 CATARACT EACH EYE AND 3 LASERS History of hysterectomy HYSTERECTOMY WITH OOPHERECTOMY (NOT SURE WHICH ONE) History of laminectomy 2002 History of surgery SUMMER 2016 LIVER INFLAMMED/SX INTERVENTION FOR / ? DATES Hx of cataract extraction bilat Hx of oral surgery multiple teeth removed Past Anesthesia History No Hx of Anesthesia Complications and No Family Hx of Anesthesia Complications History of PONV No Hx of PONV and Hx of Motion Sickness Social History Smoking Status: Former smoker tobacco type: cigarettes Do You Dip or Chew Tobacco: No Smoking End Date: FEBRUARY 2003 Hx Alcohol Use: Yes Alcohol type: beer and hard liquor alcohol intake frequency: holidays/special occasions only Hx Substance Use: Yes (HX SMOKED POT A FEW TIMES) substance use type: does not use Last Used Substance: Unknown Last Used Substance Other:: "occasionally" Review of Systems Patient denies chest pain, shortness of breath, dyspnea on exertion, fever, chills, cough, or wheezing. Physical Exam Vital Signs Vitals BP 117/73 P 84 TEMP 98.6 SP02 97% on RA RESP 17 Physical Full cervical extension range of motion without pain TMD 3.5 finger breadths Mallampati Score 2 Dentition: intact, denies chipped or loose teeth, caps/crowns, implants or bridges Lungs: normal respiratory effort. Clear throughout to auscultation, no adventitious breath sounds Cardiac: regular rate and rhythm, no murmurs noted Carotid arteries: negative bruit bilat Lab Results Anesthesia Preop Results Results Anesthesia Widget: WBC 8.57 K/ul (4.8-10.8) 10/15/22 Hgb 13.6 g/dl (12.0-16.0) 10/15/22 Hct 39.9 % (34.1-44.9) 10/15/22 Plt 276 K/uL (130-400) 10/15/22 Na 140 mmol/L (136-145) 10/15/22 K 4.5 mmol/L (3.5-5.1) 10/15/22 Cl 106 mmol/L (98-107) 10/15/22 CO2 28 mmol/L (21-32) 10/15/22 BUN 26 mg/dl (6-23) H 10/15/22 Creat 0.71 mg/dl (0.6-1.2) 10/15/22 Glucose Level 128 mg/dl (70-99(Fasting)) H 10/15/22 PT 10.0 Seconds (9.0-12.0) 10/15/22 PTT 24.8 Seconds (21.0-31.0) 10/15/22 INR 0.9 (0.9-1.1) 10/15/22 TSH 2.474 uIu/ml (0.300-4.500) 08/26/22 HA1c 6.1 % (4.5-5.6) H 10/15/22 Blood Type O Positive 10/15/22 Antibody Screen NEGATIVE 10/15/22 Testing Electrocardiogram Date: 10/15/22 NSR, rate 80 bpm Chest X-Ray Date: 10/15/22 The lungs are clear. Cardiac silhouette is normal in size. No pleural effusions. No pneumothorax. Prior cholecystectomy. IMPRESSION: No acute process. COVID-19 Risk Screen Screening Information COVID-19 Screen Date: 10/15/22 Exposure 21 Days Family/Household +COVID Last 21 Days: No Exposure 10 Days Any COVID Exposure Last 10 Days: No Symptoms Last 10 Days Experienced COVID Sx Last 10 Days: No + COVID 0-90 Days COVID + in Last 0-90 Days: No
--- NOTE | 2022-10-30 06:14 | History & Physical Report ---
Date of Service October 30, 2022 Assessment & Plan (1) Osteoarthritis of left shoulder: We will proceed with a left cuff sparing reverse shoulder arthroplasty. Postoperatively she will be placed in a sling and kept overnight in the hospital for postop medical management. She plans to go to [facility] upon discharge. History of Present Illness Chief Complaint: Osteoarthritis of the left shoulder. Primary Care Provider: Robyn Jonas MD Jodi is a pleasant 62-year-old female who has a long history of left shoulder pain and weakness. She does nothave any specific injuries to the left shoulder. I do have an MRI from 2 years ago, which shows some glenohumeral arthritis of the left shoulder. I have been treating her with serial injections. Unfortunately, she is continuing to have left shoulder pain. It is getting to the point where she cannot live with it anymore. She cannot sleep at night. She did go for repeat MRI of her shoulder. Repeat MRI showed worsening arthritis and thinning of the rotator cuff. After failing conservative treatment, she has elected proceed with a cuff sparing left reverse shoulder arthroplasty. Allergies Allergy/AdvReac Type Severity Reaction Status Date / Time cephalexin Allergy Unknown ANAPHYLAXIS Verified 10/23/22 10:33 doxycycline Allergy Unknown PT NOT SURE Verified 10/23/22 10:33 fentanyl Allergy Unknown "peeled my Verified 10/23/22 10:33 skin off" gabapentin Allergy Unknown tongue and Verified 10/23/22 10:33 skin swelling, difficulty breathing glipizide Allergy Unknown itchiness Verified 10/23/22 10:33 latex Allergy Unknown rash Verified 10/23/22 10:33 morphine Allergy Unknown "makes it Verified 10/23/22 10:33 hard to breathe" Penicillins Allergy Unknown ANAPHYLAXIS Verified 10/23/22 10:33 pregabalin Allergy Unknown HIVES Verified 10/23/22 10:33 Sulfa (Sulfonamide Allergy Unknown ANAPHYLAXIS/UNBEARABLE Verified 10/23/22 10:33 Antibiotics) ITCH amitriptyline AdvReac Unknown "make me Verified 10/23/22 10:33 sick" citalopram [From Celexa] AdvReac Unknown NO Verified 10/23/22 10:33 INTEREST TO DO DAILY ACTIVITIES - SEE NOTES duloxetine [From Cymbalta] AdvReac Unknown "Made me Verified 10/23/22 10:33 feel like a Zombie" nortriptyline AdvReac Unknown "make me Verified 10/23/22 10:33 sick" venlafaxine [From Effexor] AdvReac Unknown "made me Verified 10/23/22 10:33 feel like a zombie" JEWELRY AdvReac Unknown ENGAGMENT Uncoded 10/23/22 10:33 RING AT 22 YRS OLD, FINGER STARTED TURNING COLORS Home Medications Medication Instructions Recorded Confirmed Type cyanocobalamin (vitamin B-12) 1,000 mcg PO QAM 03/04/20 10/23/22 History 1,000 mcg tablet (Vitamin B-12) lancets 30 gauge (SiftitTouch Dellayne #100 ea 12/24/20 10/23/22 Rx Plus Lancet) acetaminophen 650 mg 650 mg PO UD PRN Pain 02/18/21 10/23/22 History tablet,extended release (Tylenol Arthritis Pain) [id number]-hxlkdzjhlukfm-xmaehnhg 250 1 tab PO UD PRN Migraine Headache 05/10/21 10/23/22 History mg-250 mg-65 mg tablet (Excedrin Migraine) calcium 300 mg chewable tablet 2 mg PO QAM 06/18/21 10/23/22 History polyethylene glycol 3350 17 17 g PO UD PRN Constipation 06/18/21 10/23/22 History gram/dose oral powder (Miralax) biotin 5,000 mcg sublingual tablet 5,000 mcg sublingual DAILY 11/12/21 10/23/22 History cholecalciferol (vitamin D3) 50 50 mcg PO QAM 11/12/21 10/23/22 History mcg (2,000 unit) capsule garlic 1,000 mg capsule 2,000 mg PO QAM 11/12/21 10/23/22 History krill oil 500 mg capsule 500 mg PO QAM 11/12/21 10/23/22 History magnesium 250 mg tablet 250 mg PO QAM 11/12/21 10/23/22 History vitamin K2 100 mcg capsule 100 mcg PO DAILY 11/12/21 10/23/22 History zinc 50 mg tablet 50 mg PO DAILY 11/12/21 10/23/22 History cyclobenzaprine 10 mg tablet 10 mg PO HS PRN MUSCLE SPASMS #30 03/23/22 10/23/22 Rx tabs blood-glucose meter (SiftitTouch #1 ea 06/19/22 10/23/22 Rx Verio Meter) trazodone 100 mg tablet 100 mg PO UD PRN Sleep 07/27/22 10/23/22 History atorvastatin 20 mg tablet (Lipitor) 20 mg PO QPM #90 tabs 09/16/22 10/23/22 Rx metformin 500 mg tablet 1,000 mg PO BID #360 tabs 09/16/22 10/23/22 Rx blood sugar diagnostic (OneTouch #100 strips 10/06/22 10/23/22 Rx Verio test strips) ascorbic acid (vitamin C) 1,000 mg 1 g PO DAILY 10/08/22 10/23/22 History tablet (Vitamin C) azelastine 137 mcg (0.1 %) nasal 1 spray intranasal BID 10/08/22 10/23/22 History spray aerosol ferrous sulfate 325 mg (65 mg 325 mg PO DAILY 10/08/22 10/23/22 History iron) tablet (iron) hydroxyzine HCl 25 mg tablet 25 mg PO HS 10/08/22 10/23/22 History nystatin 100,000 unit/gram topical 1 applic topical UD PRN BREAST 10/08/22 10/23/22 History cream SKIN SORES/SKIN IRRITATION ondansetron 4 mg disintegrating 4 mg PO UD PRN nausea and vomiting 10/08/22 10/23/22 History tablet pantoprazole 40 mg tablet,delayed 40 mg PO BID 10/08/22 10/23/22 History release phenazopyridine 95 mg tablet 95 mg PO UD PRN HX RECURRENT UTI'S 10/08/22 10/23/22 History promethazine 25 mg rectal 25 mg GA UD PRN nausea 10/08/22 10/23/22 History suppository rimegepant 75 mg disintegrating 75 mg PO Q2D 10/08/22 10/23/22 History tablet (Nurtec ODT) sucralfate 100 mg/mL oral 10 ml PO UD PRN STOMACH IRRITATION 10/08/22 10/23/22 History suspension tramadol 50 mg tablet 50 mg PO BID 10/08/22 10/23/22 History trazodone 100 mg tablet 50 mg PO QAM RACING THOUGHTS 10/08/22 10/23/22 History tramadol 50 mg tablet 50 mg PO Q6H PRN pain #30 tabs 10/16/22 10/23/22 Rx Past Med/Surg History Medical History Anxiety Fregoso's esophagus Constipation Depressive disorder Diabetes mellitus, type 2 NIDDM Dyslipidemia Fatty liver disease, nonalcoholic unknown per pt Fibromyalgia GERD (gastroesophageal reflux disease) poorly controlled per pt, follows with [facility] Hearing deficit tinnitus History of anemia History of blood transfusion with delivery in 1970s History of colon polyps History of recurrent UTI (urinary tract infection) NO CURRENT S/S History of skin cancer nose and forehead, INTERVENTION FOR/ ? CURRENT SPOT / PLANS TO MAKE DERM MADDIE Hx of cardiac murmur pt denies Hypertension OCCASIONAL Hypotension OCC Insomnia Kidney stones hx of Memory impairment [facility] Migraines Palpitations chronic sensation of heart racing without change or worsening per pt, with anxiety per pt Reflex sympathetic dystrophy "right side" Sleep apnea "BORDERLINE SLEEP APNEA", NO CPAP/COULDN'T TOLERATE Stomach ulcer HX Tubular adenoma Surgical History History of back surgery multiple procedures with "long needles inserted into my back" History of bladder surgery bladder tack History of section X3 History of cholecystectomy History of colonoscopy History of ERCP 01/08/1818 Grade 1 view, MAC 3, ETT 7. History of eye surgery TOTAL OF 5 BETWEEN FEBRUARY - JUL 2022 1 CATARACT EACH EYE AND 3 LASERS History of hysterectomy HYSTERECTOMY WITH OOPHERECTOMY (NOT SURE WHICH ONE) History of laminectomy 2002 History of surgery SUMMER 2016 LIVER INFLAMMED/SX INTERVENTION FOR / ? DATES Hx of cataract extraction bilat Hx of oral surgery multiple teeth removed Family History Unknown FHx: allergies Ovarian cancer Prostate cancer Myocardial infarction Breast cancer Grandfather Family hx of colon cancer Prostate cancer Hearing loss Cancer Asthma Son Suicide Mother Anxiety Depression Cancer Schizophrenia Daughter Anxiety Bipolar depression Family/Other Depression Aunt Breast cancer Aunt Ovarian cancer Cardiac disorder Myocardial infarction Grandmother Hearing loss Cardiac disorder Hypertension Stroke Family/Other Cardiac disorder Grandfather Family history of diabetes mellitus Social History Smoking Status: Former smoker Tobacco Type: Cigarettes Age Quit Using Tobacco: 45; packs per day: 1.5; Second Hand Exposure: No; Hx Alcohol Use: Yes Alcohol type: beer and hard liquor Hx Substance Use: Yes (HX SMOKED POT A FEW TIMES) Last Used Substance: Unknown Last Used Substance Other:: "occasionally" Preferred Language: Malian Communication Ability: Effective Visual Impairment: No Limitations Hearing Ability: Normal Transit Driver Required: No Beliefs That Will Affect Care: None marital status: Single Current Living Situation: Other 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 Physical Exam On physical examination of the left shoulder, she has about 120 degrees of forward elevation and 120 degrees of abduction. She has 4 out of 5 motor strength with full can test and external rotation. Pain over the glenohumeral joint line.. Constitutional WD/WN, vitals as above Eyes PERRL, conjunctivae normal, anicteric sclerae ENMT external ear and nose normal, oropharynx normal Neck trachea midline, no thyromegaly Respiratory normal respiratory effort, lungs clear to auscultation Cardiovascular RRR, no murmur, no edema Gastrointestinal (Abdomen) normal bowel sounds, soft, nontender, no hepatosplenomegaly Skin no rashes, warm and dry Psychiatric A+Ox3, euthymic affect Results & Data Results & Data Laboratory Results . Diagnostic Findings X-rays of the left shoulder show moderate glenohumeral arthritis. MRI of the left shoulder shows advanced glenohumeral arthritis with thinning of the rotator cuff and high-grade partial-thickness cuff tearing.. PG Care Time/CCT Total # of Minutes Spent Total Time Spent with Patient: Total time spent is greater than 50% in coordination of care (as documented) at patient's floor/unit and/or counseling patient: Coding Level of Care Code None Diagnoses Osteoarthritis of left shoulder M19.012
[~2022-10-30 08:41] MED LIST changes: +ACETAMINOPHEN 500 MG TAB PO SCH; +ALLERGY Noted to ORDERED Medication: Cefazolin SCH; -ATOR-22 PO; +BUPIVACAINE 0.5 % 5 MG/1 ML MPF 30ML VIAL ONE; -CYCL10TA6 PO; -DICL1GEL12 TOP; +FAMOTIDINE 20 MG TAB PO SCH; -GLC/500 PO; +LR 500ML BOLUS, THEN 15ML/HR IV SCH; +LR 60ML/HR IV SCH; -MELO-83 PO; -MILK175C3 PO; -MISCCAP80 PO; -OMEG10007 PO; -OMEP40CA41 PO; +ORTHO JOINT MIX INFIL SCH; -OXYC-292 PO; -OXYC1TAB3 PO; -TOPI50TA24 PO; +TRANEXAMIC ACID 1,000 MG **IV Intra-op IV SCH; +TRANEXAMIC ACID 1,000 MG **IV Pre-op IV SCH; -TURM1CAP2 PO; +dexAMETHasone 4 MG TAB PO SCH
--- NOTE | 2022-10-30 10:20 | History & Physical Bridge Note ---
Date of Service October 30, 2022 History & Physical Bridge Note I have examined the patient, reviewed the History & Physical and in the interval since the performance of the History & Physical I have noted the following changes of clinical significance: no changes noted
[2022-10-30] MEDS ORDERED: VANCOMYCIN CONSULT ACTIVE PRN (10:30)
[2022-10-30] MEDS ORDERED: VANCOMYCIN HCL 1,250 MG in SODIUM CHLORIDE 0.9% 250 ML IV STA (10:38)
[2022-10-30] MEDS ORDERED: PHENYLEPHRINE 100MCG/ML 5ML SYR ONE ×2 (10:43→11:48)
[2022-10-30] MEDS ORDERED: DEXAMETHASONE SOD INJ 4 MG/ML VIAL ONE (10:43)
[2022-10-30] MEDS ORDERED: ONDANSETRON INJ 2 MG/ML 2 ML VIAL ONE (10:43)
[2022-10-30] MEDS ORDERED: MIDAZOLAM HCL 1 MG/ML 2ML VIAL ONE (10:43)
[2022-10-30] MEDS ORDERED: PROPOFOL IV EMULSION 10 MG/ML 20 ML VIAL IV ONE (10:43)
[2022-10-30] MEDS ORDERED: ePHEDrine sulfate 50 MG/ML AMP ONE (10:43)
[2022-10-30] MEDS ORDERED: LIDOCAINE 2% MPF LOCAL 5 ML VIAL INFIL ONE (10:43)
[2022-10-30] MEDS ORDERED: ORTHO JOINT ANESTHETIC ONE (10:46)
[2022-10-30] MEDS ORDERED: HYDROmorphone INJ 1 MG/ML SYRINGE IV PRN (11:14)
[2022-10-30] MEDS ORDERED: ONDANSETRON INJ 2 MG/ML 2 ML VIAL IV PRN ×2 (11:14→14:08)
[2022-10-30] MEDS ORDERED: PROMETHAZINE HCL 6.25 MG in SODIUM CHLORIDE 0.9% 50 ML IV PRN (11:14)
[2022-10-30] MEDS ORDERED: ATROPINE SULFATE 0.1 MG/ML 10ML SYR IV PRN (11:14)
--- NOTE | 2022-10-30 12:56 | Operative Report ---
PG Post Operative Report Pre & Post Diagnosis Operation Date: 10/30/22 11:35 Pre-Op Diagnosis: Left Shoulder Degenerative Joint Disease with tendinopathy of the long head of the biceps tendon Post-Op Diagnosis: Left Shoulder Degenerative Joint Disease with tendinopathy of the long head of the biceps tendon I identified the patient and participated in the time-out.: Yes Procedure Operation Date: 10/30/22 11:35 Actual Procedures p Left Reverse Total Shoulder Arthroplasty, Uncemented(Left) with open biceps tenodesis as a distinct and separate procedure (modifier 59)- Jose R Wilson DO Surgeon Jose R Wilson DO Mailing Machine Operator Jose R Belle PA-C Estimated Blood Loss 200 Findings Consistent with Post-Op Diagnosis Specimens Right humeral head Description of Procedure A CPT code modifier 59: The long head of the biceps tendon was enlarged and inflamed consistent with tendinopathy. A tenodesis was opted. This was a separate and distinct portion of the procedure. For these reasons, a CPT code modifier 59 will be added to this case. Implants used: I used a Biomet Comprehensive reverse total shoulder arthroplasty system with a size 11 press fit micro humeral stem, a +6 offset humeral tray and a standard humeral bearing, a 25 mm baseplate with a 6.5 mm central screw and superior and inferior locking screws, and a size 36 mm eccentric glenosphere. Jodi arrived at [facility] for the above procedure. She was seen in the preoperative holding area and the operative extremity was identified and signed. She was given a preoperative antibiotic, TXA, and an interscalene nerve block. She was taken back to the operating room, laid on table in supine position, and put under general anesthesia. She was then put into the beachchair position. The shoulder was then prepped and draped in sterile fashion. A timeout was done and the patient and the operative extremity was properly identified. A deltopectoral approach was used. Dissection was taken down through the fascia and the deltoid was retracted laterally and the conjoined tendon was retracted medially. The anterior shoulder was exposed. The biceps groove was opened up and the biceps tendon was examined extensively. The biceps tendon demonstrated enlargement and inflammatory changes consistent with longstanding inflammation in the context of osteoarthritis and cuff arthropathy. The long head of the biceps tendon was then tenodesed to the upper border of the pectoralis major. This was a separate and distinct portion of the procedure. The subscapularis was then directly released off the lesser tuberosity with a peel technique. The inferior capsule was released and the humeral head was dislocated. A canal finding reamer was sent down the center of the humeral canal. Sequential reaming up to a size 11 reamer was done. Off that reamer, a proximal humeral resection guide was placed. The proximal humerus was resected at 135 of inclination and 25 of retroversion. Osteophytes were then removed and the glenoid was exposed. Time was spent doing a complete capsular and labral release. The glenoid guide was then placed in the inferior aspect of the glenoid. A 3.2 mm Steinmann pin was then placed into the glenoid vault at 10 of inclination. The glenoid baseplate was then reamed. The final size 25 mm baseplate was then impacted in the place. A 6.5 mm central screw was then placed followed by superior and inferior locking screws. A 36 mm eccentric glenosphere was then impacted into place. Surrounding soft tissues were then injected with 100 cc an orthopedic pain control cocktail. The proximal humerus was then exposed. Sequential broaching of the humerus up to a size 11 broach was done. Off that broach a +6 offset humeral tray was trialed. The shoulder was then reduced, brought through a full range of motion, and felt to be stable. The shoulder was then dislocated and the broach was removed. The final size 11 micro press-fit humeral stem was then impacted into place. A standard humeral bearing was then snapped onto a +6 offset humeral tray. The humeral tray was then impacted onto the humeral stem. The shoulder was once again reduced, brought through a full range of motion, and felt to be stable. [subscapularis]The subscapularis was then tenodesed back to the lesser tuberosity with transosseous FiberWire sutures and side to side sutures with the arm in 45 of external rotation. A dilute betadyne lavage was then done for 3 minutes. The joint was then irrigated with normal saline solution. Hemostasis was obtained. The interval was closed with 2-0 Vicryl suture. The skin was then closed with 2-0 Vicryl and ranjan. A Silverlon dressing was placed and the arm was rested in a regular arm sling. She was then extubated and transferred to a hospital bed. She taken to the postanesthesia care unit in stable condition. She tolerated the procedure well. Jose R Belle PA-C, was present for the entire procedure. He was critical for patient positioning, prepping, draping, retraction exposure, wound closure and application of sterile dressing. I attest to the content of the Intraoperative Record and any orders documented therein. Any exceptions are noted below.
--- NOTE | 2022-10-30 13:41 | XRay Report ---
LEFT SHOULDER 2 VIEWS CLINICAL HISTORY: Postoperative examination. FINDINGS: 2 portable views of the left shoulder are obtained. The skeletal structures are osteopenic. A left shoulder arthroplasty is in near anatomic alignment. No acute fracture is seen. Productive de generative change is noted at the acromioclavicular joint. Skin clips, subcutaneous gas, and soft tis isabel swelling overlying the left shoulder are expected postoperative changes. The visualized left lung parenchyma appears clear noting bibasilar atelectasis. IMPRESSION: Expected postoperative findings status post left shoulder arthroplasty. No acute fracture is seen. Electronically signed by: Carlos Brantley M.D. 10/30/2022 1:39 PM
[2022-10-30] MEDS ORDERED: METOCLOPRAMIDE HCL INJ 5 MG/ML 2 ML VIAL IV PRN (14:08)
[2022-10-30] MEDS ORDERED: ONDANSETRON 4 MG OD TAB PO PRN (14:08)
[2022-10-30] MEDS ORDERED: PHARMACY GLYCEMIC MGMT CONSULT PRN (14:08)
[2022-10-30] MEDS ORDERED: PROMETHAZINE HCL 25 MG SUPP PR PRN (14:08)
[2022-10-30] MEDS ORDERED: MAGNESIUM HYDROXIDE SUSP 30 ML UDC PO PRN (14:08)
[2022-10-30] MEDS ORDERED: bisacodyL 10 MG SUPP PR PRN (14:08)
[2022-10-30] MEDS ORDERED: traZODone HCL 100 MG TAB PO PRN (14:08)
[2022-10-30] MEDS ORDERED: NYSTATIN CR 15 GM TUBE EXT PRN (14:08)
[2022-10-30] MEDS ORDERED: oxyCODONE HCL IR 5 MG TAB (IMMEDIATE RELEASE) PO PRN (14:08)
[2022-10-30] MEDS ORDERED: HYDROmorphone INJ 0.5 MG/0.5 ML SYR IV PRN (14:08)
[2022-10-30] MEDS ORDERED: NALOXONE HCL 0.4 MG/1 ML VIAL/CARP IV PRN (14:08)
[2022-10-30] MEDS ORDERED: SUCRALFATE 1 GM/10 ML UDC PO PRN (14:08)
[2022-10-30] MEDS: [UNRECOGNIZED DRUG - REMARK] SCH ×4 (14:20→14:23)
[2022-10-30] MEDS: SODIUM CHLORIDE 0.9% 1000ML 1,000 ML IV SCH ×2 (14:22→23:52)
[2022-10-30] MEDS ORDERED: CARBOHYDRATES FOR HYPOGLYCEMIA PO PRN (14:30)
[2022-10-30] MEDS ORDERED: GLUCAGON FOR INJ 1 MG VIAL IM PRN (14:30)
[2022-10-30] MEDS ORDERED: GLUCOSE 40% GEL 15 GM TUBE PO PRN (14:30)
[2022-10-30] MEDS ORDERED: LANTUS PER UNIT CHARGE SQ ONE ×2 (14:30→15:00)
[2022-10-30] MEDS ORDERED: DEXTROSE 50% 50 ML SYRINGE IV PRN (14:30)
[2022-10-30] MEDS ORDERED: GLUCOSE 10 TAB/TUBE PO PRN (14:30)
--- NOTE | 2022-10-30 14:32 | Pharmacy Report ---
Pharmacy Glycemic Short Note 2 - Date of Service October 30, 2022 - Glycemic Short BSG Results (Last 24 hours): 10/30/22 10/30/22 09:14 13:14 POC Glucose 196 H 194 H OUTPATIENT ANTIDIABETIC REGIMEN: * Metformin 1000 mg PO BIDM HbA1c: 6.1% (10/15/22) ASSESSMENT: * HC is a 62 year old female POD #0 s/p left reverse total shoulder * Received 8 mg PO/IV dexamethasone in OR * BSGs so far today of 196 and 194 mg/dL * Well controlled T2DM per HbA1c with metformin only * Will give basal dose to cover steroids with aggressive Novolog parameters PLAN FOR INPATIENT GLYCEMIC CONTROL: * Hold outpatient oral diabetes medications * Basal insulin * Lantus 25 units SQ x 1 (~0.3 unit/kg) * Reassess need for basal in AM * Bolus insulin * NovoLog per scale ACHS or Q6hrs while NPO * Goal Range: Low 110 mg/dL - High 140 mg/dL * Correction Factor: 20 mg/dL/unit * Nutritional / Prandial insulin per carb ratio of 1 unit per 7 grams CHO consumed
--- NOTE | 2022-10-30 14:49 | Anesthesiology Progress Note ---
Date of Service October 30, 2022 Anesthesia Post Procedure Vital Signs Vital Signs: Temp Pulse Pulse Resp BP Pulse Ox O2 Del Method 10/30/22 14:25 36.4 C L 74 16 107/70 97 Room Air 10/30/22 13:30 78 13 126/78 97 Oxymask 10/30/22 13:50 72 12 114/68 96 Room Air 10/30/22 13:40 36.8 C 76 18 118/74 94 Oxymask 10/30/22 13:20 76 17 131/71 100 Oxymask 10/30/22 13:12 36.5 C 86 17 140/69 100 Oxymask 10/30/22 09:09 36.9 C 92 H 18 123/81 95 Room Air O2 Flow Rate 10/30/22 14:25 10/30/22 13:30 2 10/30/22 13:50 10/30/22 13:40 2 10/30/22 13:20 5 10/30/22 13:12 5 10/30/22 09:09 Transfer of Care Handoff Completed per policy Notes Mental Status: alert / awake / arousable Patient Amnestic to Procedure: Yes Nausea / Vomiting: adequately controlled Pain: adequately controlled Airway Patency, RR, SpO2: stable & adequate BP & HR: stable & adequate Hydration State: stable & adequate Anesthetic Complications: no major complications apparent
[2022-10-30] MEDS ORDERED: PHENAZOPYRIDINE HCL 100 MG TAB PO PRN (15:11)
[2022-10-30] MEDS: KETOROLAC 30 MG/ML VIAL IV SCH ×2 (15:13→21:08)
[2022-10-30] MEDS: INSULIN ASPART PER UNIT SC SCH ×3 (15:14→21:22)
[2022-10-30] MEDS: ACETAMINOPHEN 500 MG TAB PO SCH ×2 (15:14→21:07)
[2022-10-30] MEDS ORDERED: ceFAZolin 2000MG 2,000 MG/15 ML SYR IV SCH (19:15)
[2022-10-30] MEDS ORDERED: SENNA 8.6 MG TAB PO SCH (21:00)
[2022-10-30] MEDS ORDERED: hydrOXYzine HCl 25 MG TAB PO SCH (21:00)
[2022-10-30] MEDS ORDERED: ATORVASTATIN 20 MG TAB PO SCH (21:00)
[2022-10-30] MEDS: DOCUSATE SODIUM 100 MG CAP PO SCH (21:07)
[2022-10-30] MEDS: AZELASTINE HCL 0.1% NASAL 200 SPRAYS/27,400 MCG BTL SCH (21:07)
[2022-10-30] MEDS: PANTOprazole 40 MG TAB PO SCH (21:07)
[2022-10-30] MEDS: VANCOMYCIN HCL 1,250 MG in SODIUM CHLORIDE 0.9% 250 ML IV SCH (22:38)
[2022-10-31] MEDS: KETOROLAC 30 MG/ML VIAL IV SCH ×2 (02:25→08:20)
[2022-10-31] MEDS: ACETAMINOPHEN 500 MG TAB PO SCH (06:03)
--- NOTE | 2022-10-31 07:36 | Orthopedic Progress Note ---
Date of Service October 31, 2022 Assessment & Plan (1) Status post reverse total replacement of left shoulder: Overall she is doing well. She is not having much pain in the left shoulder. She will be seen by physical therapy today for ambulation and range of motion exercises. She can be discharged home later today. She will follow-up with orthopedics in 2 weeks. Donte Zapata was seen and examined at bedside this morning. Overall she is doing very well. She is not having any pain in the left shoulder. The nerve block is still intact. She has no other complaints.. Review of Systems All systems reviewed & are unremarkable except as noted in HPI & below. Physical Exam On physical examination of the left shoulder, the dressing is clean and dry. She is wearing her sling as instructed. The nerve block is still intact.. Results & Data Results & Data Laboratory Results . Diagnostic Findings Postoperative x-rays of the left shoulder show the prosthesis to be in anatomic alignment without any evidence of fracture, screws, or loosening. PG Care Time/CCT Total # of Minutes Spent Total Time Spent with Patient: Total time spent is greater than 50% in coordination of care (as documented) at patient's floor/unit and/or counseling patient: Coding Level of Care Code 13332 Post Operative Follow-Up Diagnoses Status post reverse total replacement of left shoulder Z96.612
--- NOTE | 2022-10-31 07:37 | Discharge Summary ---
Date of Service October 31, 2022 Admission HPI (Per Admitting) Jodi is a pleasant 62-year-old female who has a long history of left shoulder pain and weakness. She does nothave any specific injuries to the left shoulder. I do have an MRI from 2 years ago, which shows some glenohumeral arthritis of the left shoulder. I have been treating her with serial injections. Unfortunately, she is continuing to have left shoulder pain. It is getting to the point where she cannot live with it anymore. She cannot sleep at night. She did go for repeat MRI of her shoulder. Repeat MRI showed worsening arthritis and thinning of the rotator cuff. After failing conservative treatment, she has elected proceed with a cuff sparing left reverse shoulder arthroplasty. Admission Exam (Per Admitting) On physical examination of the left shoulder, she has about 120 degrees of forward elevation and 120 degrees of abduction. She has 4 out of 5 motor strength with full can test and external rotation. Pain over the glenohumeral joint line.. Principal Diagnosis Same as "Discharge Diagnosis" noted below under Discharge Instructions. Discharge Exam On physical examination of the left shoulder, the dressing is clean and dry. She is wearing her sling as instructed. The nerve block is still intact.. Discharge Data Procedures Performed Operation Date: 10/30/22 11:35 Actual Procedures p Left Reverse Total Shoulder Arthroplasty, Uncemented(Left) - Jose R Wilson DO Ordered Studies 10/30/22 05:00 US - OR guided needle placemen Routine Hospital Course (1) Status post reverse total replacement of left shoulder: On October 30, 2022 Jodi arrived at [facility] and underwent a left reverse shoulder replacement without complication. She had a general anesthetic and a left interscalene nerve block. Postoperatively she was placed in a sling and transferred to the general orthopedic floors. Her hospital course was uneventful. On postop day #1, her vital signs were stable and her pain was well controlled. She was able to participate well with physical therapy doing ambulation and range of motion exercises. She was then discharged home. She will follow-up with orthopedics in 2 weeks. PG Care Time/CCT Total # of Minutes Spent Total Time Spent with Patient: Total time spent is greater than 50% in coordination of care (as documented) at patient's floor/unit and/or counseling patient: Discharge Plan Discharge Items Patient Disposition: Home - Home Health Services Reason For Visit: Left Shoulder Degenerative Joitn Disease Discharge Diagnosis: Left reverse shoulder replacement Activity: Per Instructions section Non-emergency contact: Surgeon Call non-emergency contact if: your wound has increased redness and your wound has increased drainage Follow-up/Referrals: Robyn Jonas MD [Primary Care Provider] - Diet: Regular Addtl Attending Provider Instructions: Activity and Therapy Recommendations: * If you are using [facility] then therapy will be provided at your home until they feel you have accomplished all of your goals. * If you are using [facility] then Physical Therapy will be provided until they feel you are ready to start Outpatient Physical Therapy. * If you are not using home therapy then Outpatient Physical Therapy should start about 3-5 days from your day of surgery. Therapy will last about 8-12 weeks * Wear your sling for 3 weeks, unless otherwise instructed. You may remove your sling to shower and to dress, but otherwise, you should be in your sling at all times, including while sleeping * The shoulder replacement is very stable and you can use your hand while in the sling * You were shown a series of exercises in the hospital. Do these exercises daily including the exercises you were shown in physical therapy. Medications: * Narcotic You will likely be sent home from the hospital with a prescription for the narcotic pain medication that worked best throughout your stay. * Other medications may be prescribed for specific circumstances. If you have any questions, please call the office at . * Resume previous home medications unless otherwise instructed Dressing Care: Leave the Silverlon dressing in place for 7 days. After 7 days you may remove the dressing. If the incision is not draining then you may leave the ranjan open to air. If there is a little bit of drainage or if the ranjan are getting stuck on your clothing then cover the incision with a dry dressing. The ranjan will be removed at your 2 week follow-up appointment. Showering: You may shower with the Silverlon dressing in place. Do not let the shower spray hit the dressing directly. Pat the Silverlon dressing dry. If the dressing becomes wet underneath, then simply remove the dressing. Keep the incision dry until you are 7 days out from the day of surgery. After 7 days you may remove the Silverlon dressing and shower with the ranjan exposed. Let soapy water run over the ranjan and pat them dry. Do not scrub or soak the incision. Things To Watch For: * Drainage from the incision site that occurs more than one week after your surgery. * Increased redness at the incision site. * Fever above 102 degrees Fahrenheit. * Unusual chest pain or shortness of breath. * Call [facility] at with any of the above problems Follow-Up Visit: Follow-up with Dr. Wilson's PA (Jose R Belle) 2-3 weeks after your day of surgery. He will remove your ranjan and answer any questions. If you have any additional questions or concerns, Dr Wilson is usually in the office at the same time and will be available An appointment was probably scheduled when you signed-up for surgery in the office. If you have any questions call More detailed instructions as well as Frequently Asked Questions were provided in a folder by our office when you signed-up for surgery. Please review these instructions when you get home. If you have any further questions or concerns, please feel free to call the office at [phone] Pending Studies at Discharge: No Stand-Alone Forms: My [facility] Medications and DC Order Prescriptions: New oxycodone-acetaminophen 5-325 mg tablet 1 tab PO Q6H PRN (Reason: pain) Qty: 30 0RF Continued (DME) lancets [OneTouch Delica Plus Lancet] 30 gauge misc See Rx Instructions .ROUTE .MEDSUPPLY Qty: 100 3RF Rx Instructions: TEST ONCE DAILY; DX CODE- E11.9 cyclobenzaprine 10 mg tablet 10 mg PO HS PRN (Reason: MUSCLE SPASMS) Qty: 30 5RF (DME) blood-glucose meter [OneTouch Verio Meter] Misc See Rx Instructions .ROUTE .MEDSUPPLY Qty: 1 0RF Rx Instructions: As directed atorvastatin [Lipitor] 20 mg tablet 20 mg PO QPM Qty: 90 1RF metformin 500 mg tablet 1,000 mg PO BID Qty: 360 1RF Rx Instructions: take 2 tablets by mouth twice a day (DME) OneTouch Verio test strips Strip See Rx Instructions .ROUTE .COMPLEX Qty: 100 3RF Dose Instruction: USE 1 TEST STRIP TO TEST BLOOD SUGAR ONCE DAILY Rx Instructions: USE 1 TEST STRIP TO TEST BLOOD SUGAR ONCE DAILY biotin 5,000 mcg tablet, sublingual 5,000 mcg sublingual DAILY Label Comments: NOT CURRENTLY TAKING garlic 1,000 mg capsule 2,000 mg PO QAM krill oil 500 mg capsule 500 mg PO QAM Label Comments: NOT RIGHT NOW , PLANS TO RESTART SUPPLEMENTS AFTER SURGERY vitamin K2 100 mcg capsule 100 mcg PO DAILY Label Comments: STOPPED UNTIL AFTER MY SURGERY magnesium 250 mg tablet 250 mg PO QAM Label Comments: NOT FOR RIGHT NOW zinc 50 mg tablet 50 mg PO DAILY Label Comments: STOPPED UNTIL AFTER MY SURGERY cholecalciferol (vitamin D3) 50 mcg (2,000 unit) capsule 50 mcg PO QAM acetaminophen [Tylenol Arthritis Pain] 650 mg tablet extended release 650 mg PO UD PRN (Reason: Pain) cyanocobalamin (vitamin B-12) [Vitamin B-12] 1,000 mcg Tablet 1,000 mcg PO QAM trazodone 100 mg tablet 100 mg PO UD PRN (Reason: Sleep) Label Comments: BEEN AWHILE SINCE I HAVE DONE THAT Excedrin Migraine 250-250-65 mg Tablet 1 tab PO UD PRN (Reason: Migraine Headache) Label Comments: NONE FOR QUITE AWHILE polyethylene glycol 3350 [Miralax] 17 gram/dose Powder 17 g PO UD PRN (Reason: Constipation) calcium 300 mg Tablet,Chewable 2 mg PO QAM Label Comments: NOT CURRENTLY ascorbic acid (vitamin C) [Vitamin C] 1,000 mg Tablet 1 g PO DAILY sucralfate 100 mg/mL suspension 10 ml PO UD PRN (Reason: STOMACH IRRITATION) Rx Instructions: take 10 milliliters by mouth before meals and BEFORE BEDTIME for 10 days promethazine 25 mg suppository 25 mg VT UD PRN (Reason: nausea) tramadol 50 mg tablet 50 mg PO BID trazodone 100 mg tablet 50 mg PO QAM Rx Instructions: TAKE 1 TO 3 TABS AT BEDTIME PRN pantoprazole 40 mg tablet,delayed release (DR/EC) 40 mg PO BID Rx Instructions: take 1 tablet by mouth twice a day nystatin 100,000 unit/gram cream 1 applic topical UD PRN (Reason: BREAST SKIN SORES/SKIN IRRITATION ) Label Comments: SUMMER TIME hydroxyzine HCl 25 mg tablet 25 mg PO HS Rx Instructions: at bedtime azelastine 137 mcg (0.1 %) aerosol,spray 1 spray intranasal BID Rx Instructions: USE 1-2 SPRAYS EACH NOSTRIL 1-2 TIMES DAILY; administer into each nostril ondansetron 4 mg tablet,disintegrating 4 mg PO UD PRN (Reason: nausea and vomiting) Nurtec ODT 75 mg tablet,disintegrating 75 mg PO Q2D Rx Instructions: 75 mg orally; EVERY OTHER DAY TO PREVENT MIGRAINE; ( VERIFIED PAT CALL 10/08/22) phenazopyridine [Azo] 95 mg Tablet 95 mg PO UD PRN (Reason: HX RECURRENT UTI'S ) ferrous sulfate [iron] 325 mg (65 mg iron) Tablet 325 mg PO DAILY Discharge Orders: Discharge Order (Routine); Ordered 10/31/22 Ordered By: Jose R Wilson Admission Data Admit Date/Time: 10/30/22 13:17 Attending Provider: Jose R Wilson Admit Provider: Jose R Wilson Primary Care Provider: Robyn Jonas
[2022-10-31] MEDS: AZELASTINE HCL 0.1% NASAL 200 SPRAYS/27,400 MCG BTL SCH (08:16)
[2022-10-31] MEDS: DOCUSATE SODIUM 100 MG CAP PO SCH (08:17)
[2022-10-31] MEDS: PANTOprazole 40 MG TAB PO SCH (08:17)
[2022-10-31] MEDS ORDERED: MULTIVITAMIN TAB PO SCH (09:00)
[2022-10-31] MEDS ORDERED: traZODone HCL 50 MG TAB PO SCH (09:00)
[2022-10-31] MEDS: INSULIN ASPART PER UNIT SC SCH (09:07)
[2022-10-31] MEDS: VANCOMYCIN HCL 1,250 MG in SODIUM CHLORIDE 0.9% 250 ML IV SCH (10:11)
== END 2022-10-31 12:28 | disposition home health service (06) ==
LOC: ASU 08:41 → 3E 13:17 → INTOOBSV 13:17

== ENCOUNTER 2025-04-30 05:46 | Observation (INO) ==
--- NOTE | 2025-04-02 16:16 | PAT Medication Instructions ---
Medication Instructions Date of Service April 02, 2025 Home Medications Medication Instructions Recorded lancets 30 gauge (OneTouch Delica #100 ea 12/24/20 Plus Lancet) blood-glucose meter (OneTouch #1 ea 06/19/22 Verio Meter) blood sugar diagnostic (OneTouch #100 strips 10/06/22 Verio test strips) TENS units #1 ea 02/25/23 Spacer for Inhaler #1 ea 09/06/23 methocarbamol 750 mg tablet 750 mg PO TID PRN spasm #90 tabs 08/22/24 trazodone 150 mg tablet 150 mg PO PM PRN insomnia #90 tabs 08/22/24 sucralfate 100 mg/mL oral 10 ml PO UD PRN STOMACH IRRITATION 11/24/24 suspension #420 mL hydroxyzine HCl 25 mg tablet 25 mg PO TID PRN itching #270 tabs 12/27/24 acetaminophen 650 mg tablet,extended release (Tylenol Arthritis Pain) 650 mg PO UD PRN ihuusol-nvhlyenqmvtfw-ttdneacr 250 mg-250 mg-65 mg tablet (Excedrin Migraine) 1 tab PO UD PRN methocarbamol 750 mg tablet 750 mg PO TID PRN trazodone 150 mg tablet 150 mg PO PM PRN sucralfate 100 mg/mL oral suspension 10 ml PO UD PRN hydroxyzine HCl 25 mg tablet 25 mg PO TID PRN Replenza 1 dose PO DAILY atorvastatin 20 mg tablet 20 mg PO HS linaclotide 145 mcg capsule (Linzess) 145 mcg PO QAM metformin 500 mg tablet 1,000 mg PO BID pantoprazole 40 mg tablet,delayed release 40 mg PO BID rimegepant 75 mg disintegrating tablet (Nurtec ODT) 75 mg PO UD semaglutide 0.25 mg or 0.5 mg (2 mg/3 mL) subcutaneous pen injector (Ozempic) 0.5 mg subcut Q7D STOP 7 days before surgery semaglutide 0.25 mg or 0.5 mg (2 mg/3 mL) subcutaneous pen injector (Ozempic) 0.5 mg subcut Q7D Continue as directed acetaminophen 650 mg tablet,extended release (Tylenol Arthritis Pain) 650 mg PO UD PRN(if needed) ASK your surgeon for instructions yigkbok-hwooxjxxuregj-gieosuql 250 mg-250 mg-65 mg tablet (Excedrin Migraine) 1 tab PO UD PRN ASK your prescriber and surgeon rimegepant 75 mg disintegrating tablet (Nurtec ODT) 75 mg PO UD DO NOT take the morning of surgery sucralfate 100 mg/mL oral suspension 10 ml PO UD PRN linaclotide 145 mcg capsule (Linzess) 145 mcg PO QAM metformin 500 mg tablet 1,000 mg PO BID Replenza 1 dose PO DAILY Take morning of surgery With a small sip of water, OTHERWISE NOTHING TO EAT OR DRINK AFTER MIDNIGHT: methocarbamol 750 mg tablet 750 mg PO TID PRN(if needed) hydroxyzine HCl 25 mg tablet 25 mg PO TID PRN(if needed) pantoprazole 40 mg tablet,delayed release 40 mg PO BID Take evening before surgery methocarbamol 750 mg tablet 750 mg PO TID PRN(if needed) trazodone 150 mg tablet 150 mg PO PM PRN(if needed) hydroxyzine HCl 25 mg tablet 25 mg PO TID PRN(if needed) atorvastatin 20 mg tablet 20 mg PO HS metformin 500 mg tablet 1,000 mg PO BID pantoprazole 40 mg tablet,delayed release 40 mg PO BID Other Notes If you have any questions please call us at [phone] or [phone] or [phone] or [phone]
--- NOTE | 2025-04-10 12:37 | Anesthesiology Consultation ---
Date of Service April 10, 2025 Assessment & Plan (1) Encounter for pre-operative examination: Plan - patient states NO neuraxial anesthesia; therefore, no bolus was ordered. - check BSG am DOS. - ER 04/03/25 [facility]: "...right frontal headache and blurry vision. Blurry vision has been constant for the past 3 to 4 months. Pain is located over the right frontal region. It is significantly and acutely tender to palpation. She notes even just light touch causes severe pain. Denies any rash...Labs showed no significant leukocytosis or anemia. INR was unremarkable. BMP with a slightly elevated chloride at 108. LFTs bilirubin and mag were unremarkable. CT head and chest x-ray were clean. Slit-lamp showed no cell or flare. Intraocular pressures were 19 and 20 bilaterally...blurry vision comes and goes with the severity of the right-sided headache. Not consistent with shingles. No tenderness over the temporal artery. Sedimentation rate was not elevated. Symptoms are not worse with chewing or eating. There is no signs of infection externally. I do favor this likely either neuropathic or from the sinuses...She favors that this is likely infectious as she does have a runny nose and congestion. Would like to be placed on antibiotics. She has allergies to doxycycline and penicillins. Will place on a short course of Levaquin for the patient's request instructed follow-up with PCP as an outpatient..." Patient states symptoms have fully resolved. - semaglutide instructions: Patient informed at PAT visit to stop 7 days prior to surgery- voiced understanding. Patient advised to check with prescriber to see if alternative diabetic management changes recommended while holding semaglutide- if so, patient to call back to PAT to update chart and discuss if any further preop medication instructions needed. - Outpatient joint assessment: Patient is currently scheduled for inpatient pathway. If re-evaluated and patient/surgeon requests outpatient pathway, patient is not advised candidate for outpatient joint program. Chart Review Chart Review: Acceptable Risk for Surgery and Patient seen in Pre Admission Testing Teaching & Discussion Pre-Anesthesia Teaching/Discussion Notes: Instructed NPO after midnight before surgery, except medications with 15 cc of water. Medication instructions provided according to the PAT guidelines. History Surgery Operation Date: 04/30/25 08:00 Proposed Procedures p Right Total Knee Arthroplasty - Jose R Wilson, Height/Weight Height: 5 ft 6.5 in Weight: 85.2 kg Allergies Allergy/AdvReac Type Severity Reaction Status Date / Time cephalexin Allergy Severe ANAPHYLAXIS Verified 04/10/25 09:59 gabapentin Allergy Severe tongue and Verified 04/10/25 09:59 skin swelling, difficulty breathing morphine Allergy Severe "makes it Verified 04/10/25 09:59 hard to breathe" Penicillins Allergy Severe ANAPHYLAXIS Verified 04/10/25 09:59 Sulfa (Sulfonamide Allergy Severe ANAPHYLAXIS/UNBEARABLE Verified 04/10/25 09:59 Antibiotics) ITCH fentanyl Allergy Intermediate "peeled my Verified 04/10/25 09:59 skin off" glipizide Allergy Intermediate itchiness Verified 04/10/25 09:59 latex Allergy Intermediate rash Verified 04/10/25 09:59 pregabalin Allergy Intermediate HIVES Verified 04/10/25 09:59 doxycycline Allergy Unknown PT NOT SURE Verified 04/10/25 09:59 amitriptyline AdvReac Intermediate "make me Verified 04/10/25 09:59 sick" citalopram [From Celexa] AdvReac Intermediate NO Verified 04/10/25 09:59 INTEREST TO DO DAILY ACTIVITIES - SEE NOTES duloxetine [From Cymbalta] AdvReac Intermediate "Made me Verified 04/10/25 09:59 feel like a Zombie" nortriptyline AdvReac Intermediate "make me Verified 04/10/25 09:59 sick" venlafaxine [From Effexor] AdvReac Intermediate "made me Verified 04/10/25 09:59 feel like a zombie" JEWELRY AdvReac Intermediate ENGAGMENT Uncoded 04/10/25 09:59 RING AT 22 YRS OLD, FINGER STARTED TURNING COLORS Medications Home Medications Medication Instructions Recorded Confirmed Last Taken acetaminophen 650 mg 650 mg PO UD PRN Pain 02/18/21 04/10/25 02/13/25 tablet,extended release (Tylenol Arthritis Pain) sbpsvbj-atbcwaezjredh-rbqfgwrj 250 1 tab PO UD PRN Migraine Headache 05/10/21 04/10/25 03/15/22 mg-250 mg-65 mg tablet (Excedrin Migraine) TENS units #1 ea 02/25/23 04/10/25 Unknown sucralfate 100 mg/mL oral 10 ml PO UD PRN STOMACH IRRITATION 11/24/24 04/10/25 Unknown suspension #420 mL hydroxyzine HCl 25 mg tablet 25 mg PO TID PRN itching #270 tabs 12/27/24 04/10/25 02/08/25 Replenza 1 dose PO DAILY 02/05/25 04/10/25 04/03/25 atorvastatin 20 mg tablet 20 mg PO HS 04/02/25 04/10/25 04/02/25 linaclotide 145 mcg capsule 145 mcg PO QAM 04/02/25 04/10/25 04/03/25 (Linzess) metformin 500 mg tablet 1,000 mg PO BID 04/02/25 04/10/25 04/03/25 08:00 pantoprazole 40 mg tablet,delayed 40 mg PO BID 04/02/25 04/10/25 04/03/25 08:00 release rimegepant 75 mg disintegrating 75 mg PO Q OTHER DAY 04/02/25 04/10/25 04/02/25 tablet (Nurtec ODT) semaglutide 0.25 mg or 0.5 mg (2 0.5 mg subcut WK 04/02/25 04/10/25 Unknown mg/3 mL) subcutaneous pen injector (Ozempic) tramadol 50 mg tablet 50 mg PO Q8H PRN pain #30 tabs 04/03/25 04/10/25 Unknown Past Medical History Medical History (Updated 04/10/25 @ 13:31 by Krystin Montenegro PA-C) Anxiety Fregoso's esophagus Depressive disorder Diabetes mellitus, type 2 NIDDM Dyslipidemia Fatty liver disease, nonalcoholic Fibromyalgia GERD (gastroesophageal reflux disease) improved with current medications per pt Hearing deficit tinnitus History of anemia History of blood transfusion with delivery in 1970s History of kidney stones History of recurrent UTI (urinary tract infection) NO CURRENT S/S History of skin cancer nose and forehead s/p excision Hypertension just with extreme pain Hypotension on occasion Insomnia Memory impairment [place] neuro Migraines Palpitations chronic sensation of heart racing without change or worsening per pt, with anxiety per pt Reflex sympathetic dystrophy "right side" Sleep apnea Borderline BAL- cannot tolerate CPAP Stomach ulcer hx Patient denies h/o stroke, seizures, heart attack, heart failure, or blood clots/DVTs. Exercise / Class Metabolic Activity III < 4 Walking/Shop/Light housework (ambulates with walker, denies chest discomfort or shortness of breath with usual activities) Past Family History Family History Unknown FHx: allergies Ovarian cancer Prostate cancer Myocardial infarction Breast cancer Grandfather Family hx of colon cancer Prostate cancer Hearing loss Cancer Asthma Son Suicide Mother Anxiety Depression Cancer Schizophrenia Daughter Anxiety Bipolar depression Family/Other Depression Aunt Breast cancer Aunt Ovarian cancer Cardiac disorder Myocardial infarction Grandmother Hearing loss Cardiac disorder Hypertension Stroke Family/Other Cardiac disorder Grandfather Family history of diabetes mellitus Past Surgical History Surgical History (Updated 04/10/25 @ 13:26 by Krystin Montenegro PA-C) History of back surgery multiple procedures with "long needles inserted into my back" History of bladder surgery bladder tack History of section X3 History of cholecystectomy History of colonoscopy (02/15/25) History of ERCP History of esophagogastroduodenoscopy (EGD) (02/15/25) History of eye surgery multiple History of hysterectomy hysterectomy with oophorectomy (unsure which side) History of laminectomy 2002 History of surgery SUMMER 2016 LIVER INFLAMMED/SX INTERVENTION FOR / ? DATES Hx of cataract extraction bilat Hx of oral surgery multiple teeth removed S/P shoulder surgery left Past Anesthesia History No Hx of Anesthesia Complications and No Family Hx of Anesthesia Complications History of PONV No Hx of PONV and Hx of Motion Sickness Social History Smoking Status: Former smoker Do You Dip or Chew Tobacco: No Smoking End Date: 2002 Hx Alcohol Use: Yes Alcohol type: beer and hard liquor alcohol intake frequency: a few times a month Hx Substance Use: No substance use type: does not use Review of Systems Patient denies chest pain, shortness of breath, dyspnea on exertion, fever, chills, cough, wheezing, or palpitations. Physical Exam Vital Signs Vitals BP 106/72 P 78 TEMP 98.7 SP02 96% on RA RESP 18 Physical Patient resting comfortably in chair in no acute distress, alert and oriented, responding appropriately throughout visit Full cervical extension range of motion without pain TMD 3.5 finger breadths Mallampati Score 3 Dentition: full upper dentures and multiple chipped teeth; denies caps/crowns, implants or bridges Lungs: normal respiratory effort. Good air movement, clear throughout to auscultation, no adventitious breath sounds Cardiac: regular rate and rhythm, no murmurs noted Carotid arteries: negative bruit bilat Lab Results Anesthesia Preop Results Results Anesthesia Widget: WBC 6.73 K/ul (4.8-10.8) 04/10/25 Hgb 13.3 g/dl (12.0-16.0) 04/10/25 Hct 38.5 % (37.0-47.0) 04/10/25 Plt 253 K/uL (130-400) 04/10/25 Na 139 mmol/L (136-145) 04/06/25 K 4.5 mmol/L (3.5-5.1) 04/06/25 Cl 105 mmol/L (98-107) 04/06/25 CO2 29 mmol/L (21-32) 04/06/25 BUN 17 mg/dl (6-23) 04/06/25 Creat 0.68 mg/dl (0.6-1.2) 04/06/25 Glucose Level 112 mg/dl (70-99(Fasting)) H 04/06/25 PT 10.4 Seconds (9.0-12.0) 04/03/25 PTT 26 Seconds (21-31) 04/03/25 INR 1.0 (0.9-1.1) 04/03/25 HA1c 5.8 % (4.5-5.6) H 04/06/25 Blood Type O Positive 04/10/25 Antibody Screen NEGATIVE 04/10/25 Testing Electrocardiogram Date: 04/03/25 NSR, rate 87 bpm Nonspecific T wave abnormality Chest X-Ray Date: 04/03/25 *1 view* No acute findings in the chest. Cervical Spine Date: 08/23/24 No acute findings. Other Testing Head CT 04/03/25 Normal head/brain CT.
[2025-04-30] MEDS: LR 15ML/HR IV SCH (06:14)
[2025-04-30] MEDS: LR 60ML/HR IV SCH (06:14)
[2025-04-30] MEDS: FAMOTIDINE 20 MG TAB PO SCH (06:15)
[2025-04-30] MEDS: ACETAMINOPHEN 500 MG TAB PO SCH ×2 (06:15→13:50)
[2025-04-30] MEDS: dexAMETHasone**PF** 10 MG/ML VIAL IV SCH (06:15)
[2025-04-30] MEDS ORDERED: DEXAMETHASONE SOD INJ 4 MG/ML VIAL ONE (06:15)
[2025-04-30] MEDS ORDERED: BUPIVACAINE/EPINEPHRINE 0.25% 1:200,000 30 ML VIAL ONE (06:15)
[2025-04-30] MEDS ORDERED: BUPIVACAINE 0.5 % 5 MG/1 ML PF 10ML VIAL ONE (06:17)
--- NOTE | 2025-04-30 06:35 | History & Physical Bridge Note ---
Date of Service April 30, 2025 History & Physical Bridge Note I have examined the patient, reviewed the History & Physical and in the interval since the performance of the History & Physical I have noted the following changes of clinical significance: no changes noted
[2025-04-30] MEDS ORDERED: PROPOFOL IV EMULSION 10 MG/ML 20 ML VIAL IV ONE (06:53)
[2025-04-30] MEDS ORDERED: MIDAZOLAM HCL 1 MG/ML 2ML VIAL ONE ×2 (06:54)
[2025-04-30] MEDS ORDERED: PROMETHAZINE HCL 6.25 MG in SODIUM CHLORIDE 0.9% 50 ML IV PRN (07:25)
[2025-04-30] MEDS ORDERED: ONDANSETRON INJ 2 MG/ML 2 ML VIAL ONE (07:25)
[2025-04-30] MEDS ORDERED: LIDOCAINE 2% 2 ML VIAL/AMP(20MG/ML) INFIL ONE (07:25)
[2025-04-30] MEDS ORDERED: ONDANSETRON INJ 2 MG/ML 2 ML VIAL IV PRN (07:25)
[2025-04-30] MEDS ORDERED: ATROPINE SULFATE 0.1 MG/ML 10ML SYR IV PRN (07:25)
[2025-04-30] MEDS: TRANEXAMIC ACID 1,000 MG **IV Pre-op IV SCH (07:38)
[2025-04-30] MEDS: ORTHO JOINT ANESTHETIC ONE (08:34)
[2025-04-30] MEDS ORDERED: HYDROmorphone INJ 1 MG/ML SYRINGE ONE (08:34)
[2025-04-30] MEDS: ROPIV 0.5% 246mg, Ketorolac 30mg, EPINEPHrine 0.5mg in NSS INFIL SCH (08:52)
--- NOTE | 2025-04-30 09:06 | Operative Report ---
PG Post Operative Report Pre & Post Diagnosis Operation Date: 04/30/25 08:00 Pre-Op Diagnosis: right knee degenerative joint disease Post-Op Diagnosis: right knee degenerative joint disease I identified the patient and participated in the time-out.: Yes Procedure Operation Date: 04/30/25 08:00 Actual Procedures p Robotic Assisted Right Total Knee Arthroplasty(Right) - Jose R Wilson DO Surgeon Jose R Wilson DO Volumetric Weigher Jesús Monsalve PA-C Estimated Blood Loss 30 Findings Consistent with Post-Op Diagnosis Specimens Right femoral and tibial bone Description of Procedure Implants used: I used a Filomena Persona total knee arthroplasty system with a size 8 standard tivanium femur, D tibia, 31 oval patella, and a size 14 CPS polyethylene bearing. All components were cemented in place with Biomet cement. Jodi arrived [facility] for the above procedure. She was seen in the preoperative holding area and the operative extremity was identified and signed. She was given a preoperative antibiotic, TXA, a spinal anesthetic and an adductor nerve block. She was taken back to the operating room and laid on the table in supine position. She was given basic sedation. The operative knee was then prepped and draped in sterile fashion. A timeout was done, and the patient and the operative extremity was properly identified. A midline incision was made directly over the patella. Dissection was taken down to the extensor mechanism. A medial parapatellar arthrotomy was used. The medial retinaculum was released and the fat pad was mostly excised. The knee was flexed and the ACL, PCL, and meniscus were removed. The alignment of the knee replacement was assisted with a Onefeat robotic knee. The femoral array was pinned in the distal femur and the tibial array was pinned using a percutaneous technique in the upper shaft of the tibia. The robot was appropriately calibrated and the structure of the knee was mapped out. The components were then manipulated on the screen to account for any malalignment and to assist in gap balancing. Once I was happy with the placement of the components on the screen, a distal femoral cutting guide was brought in place. The distal femur was then resected. The femur measured to be a size 8. A 4-in-1 cutting block was then put into place by the robot and 2 peg holes were drilled. The 4-in-1 cutting block was then impacted into place and anterior, posterior, and chamfer cuts were made. The cutting block was then brought down to the tibia and pinned into place. The proximal tibia was then resected. The posterior aspect of the knee was then opened up and any additional meniscus fragments and osteophytes were removed. The tibia measured to be a size D. The tibial plate was then placed in the appropriate rotation and the tibia was drilled and punched. Trial components were then placed. The patella was then everted and 9 mm was resected off the posterior aspect of the patella. The patella measured to be a size 31 oval. 3 peg holes were then drilled. A trial patella was placed. A size 14 CPS polyethylene insert was then trialed. The knee was brought through a full range of motion and felt to be stable. Trial components were then removed. The surrounding soft tissues were injected with 100 cc of an orthopedic pain control cocktail. All components were then cemented into place with Biomet cement. The final polyethylene insert was then snapped into place. Once cement was dry the tourniquet was deflated. Hemostasis was obtained. A dilute betadyne lavage was then done for 3 minutes. The joint was then irrigated with normal saline solution. The medial parapatellar arthrotomy was then closed with #1 Vicryl suture. The skin was closed with 2-0 Vicryl, 3-0V lock suture, and Jet zip line. A soft compressive dressing was placed. She was then transferred to a hospital bed and taken to the postanesthesia care unit in stable condition. She tolerated the procedure well. Jesús Monsalve PA-C, was present for the entire procedure. He was critical for patient positioning, prepping, draping, retraction exposure, wound closure and application of sterile dressing. I attest to the content of the Intraoperative Record and any orders documented therein. Any exceptions are noted below.
--- NOTE | 2025-04-30 09:59 | XRay Report ---
XR knee RT 1 or 2V routine CLINICAL HISTORY: Surgical Post Op right knee arthroplasty. Degenerative change. COMPARISON: 08/14/2024 FINDINGS: There are postsurgical changes of a total right knee arthroplasty and patellar resurfacing . There is air within the soft tissues consistent with recent surgery. No fractures are visualized. T he femoral and tibial components appear well seated. IMPRESSION: Postsurgical changes of a total right knee arthroplasty. No complicating features identif ied. ACT 112: Negative or not required by law. Electronically signed by: Jean Pierre Gillette M.D. 04/30/2025 9:57 AM
--- NOTE | 2025-04-30 10:22 | Anesthesiology Progress Note ---
Date of Service April 30, 2025 Anesthesia Post Procedure Vital Signs Vital Signs: Temp Pulse Pulse Resp BP Pulse Ox O2 Del Method 04/30/25 10:15 80 14 142/77 H 94 Room Air 04/30/25 10:05 36.5 C 79 16 128/75 95 Room Air 04/30/25 09:55 86 19 128/75 94 Oxymask 04/30/25 09:45 84 22 138/85 95 Room Air 04/30/25 09:35 78 18 151/73 H 99 Oxymask 04/30/25 09:29 36.3 C L 87 12 148/80 H 97 Oxymask 04/30/25 06:06 37 C 83 20 134/84 98 Room Air O2 Flow Rate 04/30/25 10:15 04/30/25 10:05 04/30/25 09:55 04/30/25 09:45 04/30/25 09:35 4 04/30/25 09:29 11 04/30/25 06:06 Pain Intensity Right Knee: Pain Intensity: 4 Transfer of Care Handoff Completed per policy Notes Mental Status: alert / awake / arousable Patient Amnestic to Procedure: Yes Nausea / Vomiting: adequately controlled Pain: adequately controlled Airway Patency, RR, SpO2: stable & adequate BP & HR: stable & adequate Hydration State: stable & adequate Anesthetic Complications: no major complications apparent
[2025-04-30] MEDS: SODIUM CHLORIDE 0.9% 1,000 ML IV SCH (10:30)
[2025-04-30] MEDS ORDERED: PHARMACY GLYCEMIC MGMT CONSULT PRN (10:36)
[2025-04-30] MEDS ORDERED: NALOXONE HCL 0.4 MG/1 ML VIAL/CARP IV PRN (10:36)
[2025-04-30] MEDS ORDERED: MAGNESIUM HYDROXIDE SUSP 30 ML UDC PO PRN (10:36)
[2025-04-30] MEDS ORDERED: METOCLOPRAMIDE HCL INJ 5 MG/ML 2 ML VIAL IV PRN (10:36)
[2025-04-30] MEDS: KETOROLAC TROMETHAMINE 15 MG/ML VIAL IV SCH (11:07)
[2025-04-30] MEDS ORDERED: CARBOHYDRATES FOR HYPOGLYCEMIA PO PRN (11:30)
[2025-04-30] MEDS ORDERED: DEXTROSE 50% 50 ML SYRINGE IV PRN (11:30)
[2025-04-30] MEDS ORDERED: GLUCAGON FOR INJ 1 MG VIAL SQ PRN (11:30)
[2025-04-30] MEDS ORDERED: GLUCOSE 40% GEL 15 GM TUBE PO PRN (11:30)
[2025-04-30] MEDS ORDERED: GLUCOSE 10 TAB/TUBE PO PRN (11:30)
--- NOTE | 2025-04-30 11:31 | Pharmacy Report ---
Pharmacy Glycemic Short Note 2 - Date of Service April 30, 2025 - Glycemic Short BSG Results (Last 24 hours): 04/30/25 04/30/25 04/30/25 06:16 09:36 11:16 POC Glucose 139 H 211 H 224 H OUTPATIENT ANTIDIABETIC REGIMEN: * metformin 1 gm bid, semaglutide 1 mg SQ weekly ASSESSMENT: * 65 year old s/p surgery, POD 0 - pharmacy consulted for glycemic management. Postop BSG >200 - will start novolog weight based stress of 3 dosing for now. Patient did receive IV dexamethasone preoperatively, will give Lantus 0.3 units/kg x 1 now to cover steroid effects. PLAN FOR INPATIENT GLYCEMIC CONTROL: * Hold outpatient oral diabetes medications * Basal insulin * Lantus 25 units x 1 now * Bolus insulin * NovoLog per scale ACHS or Q6hrs while NPO * Goal Range: Low 110 mg/dL - High 140 mg/dL * Correction Factor: 20 mg/dL/unit * Nutritional / Prandial insulin per carb ratio of 1 unit per 6 grams CHO consumed
[2025-04-30] MEDS: LANTUS PER UNIT CHARGE SC ONE (12:04)
[2025-04-30] MEDS: INSULIN ASPART PER UNIT CHARGE SC SCH (12:05)
[2025-04-30] MEDS: ATORVASTATIN 20 MG TAB PO SCH (20:43)
[2025-04-30] MEDS: ASPIRIN 81 MG ECTAB PO SCH (20:54)
[2025-04-30] MEDS: SENNA 8.6 MG TAB PO SCH (20:54)
[2025-04-30] MEDS: DOCUSATE SODIUM 100 MG CAP PO SCH (20:55)
[2025-05-01] MEDS: INSULIN ASPART PER UNIT CHARGE SC SCH (00:05)
[2025-05-01 07:40] VITALS: RESP 16
[2025-05-01] MEDS: LINACLOTIDE 145 MCG CAPSULE PO SCH (07:46)
[2025-05-01] MEDS: MULTIVITAMIN TAB PO SCH (07:46)
--- NOTE | 2025-05-01 09:28 | Orthopedic Progress Note ---
Date of Service May 01, 2025 Assessment & Plan (1) Status post total right knee replacement: Plan * Continue Current Treatment * Disposition: Home * Daily treatment: Physical Therapy/ Occupational Therapy per protocol * Weight bearing status: WBAT * Continue to monitor for ABLA * Pain control * DVT prophylaxis, ASA * Office/hospital f/u 2 weeks for progress check and staple/suture removal * Plan for discharge today pending PT/OT clearance Subjective .Active Problems: S/p right TKA POD 1 65 y/o female s/p right TKA. Doing well overall, pain managed and improved function. Denies fever/chills, chest pain/SOB, nausea/vomiting. Otherwise no complaints. Review of Systems All systems reviewed & are unremarkable except as noted in HPI & below. Physical Exam . * General: Alert and oriented, no acute distress * Constitutional: well-developed, well-nourished. * Respiratory: Normal respiratory effort, no distress * Gastrointestinal: No tenderness to palpation, no rigidity or guarding. * Skin: No rash or lesion. * Neurologic: Grossly normal * Musculoskeletal: Right knee surgical dressing CDI, not removed for exam. Otherwise no obvious deformity or overlying skin changes RLE. Diffuse TTP distal thigh and knee region. Otherwise no specific tenderness of proximal thigh, lower leg, foot/ankle. AROM knee flexion 90 degrees. AROM foot/ankle intact. Sensation intact plantar/dorsal foot. Brisk capillary refill. Results & Data Results & Data Laboratory Results . Diagnostic Findings . PG Care Time/CCT Total # of Minutes Spent Total Time Spent with Patient: Total time spent is greater than 50% in coordination of care (as documented) at patient's floor/unit and/or counseling patient: Coding Level of Care Code 72284 Post Operative Follow-Up Diagnoses Status post total right knee replacement Z96.651
[2025-05-01] MEDS: KETOROLAC TROMETHAMINE 15 MG/ML VIAL IV ONE (10:39)
[2025-05-01] MEDS: ONDANSETRON INJ 2 MG/ML 2 ML VIAL IV PRN (13:43)
[2025-05-01] MEDS: SUCRALFATE 1 GM/10 ML UDC PO SCH (13:45)
[2025-05-01 23:14] VITALS: O2SAT 99
[2025-05-02] MEDS: HYDROmorphone INJ 0.5 MG/0.5 ML SYR IV PRN (01:57)
[2025-05-02 07:36] VITALS: BP 112/68; PULSE 84; TEMP 98.8
--- NOTE | 2025-05-02 08:56 | Orthopedic Progress Note ---
Date of Service May 02, 2025 Assessment & Plan (1) Status post total right knee replacement: Plan * Continue Current Treatment * Disposition: Home * Daily treatment: Physical Therapy/ Occupational Therapy per protocol * Weight bearing status: WBAT * Continue to monitor for ABLA * Dressing change PRN * Pain control * DVT prophylaxis, ASA * Office/hospital f/u 2 weeks for progress check and staple/suture removal * Plan for discharge today pending PT/OT clearance Subjective .Active Problems: S/p right TKA POD 2 65 y/o female s/p right TKA. Doing well overall, pain managed and improved function. Denies fever/chills, chest pain/SOB, nausea/vomiting. Otherwise no complaints. Dressing changed yesterday due to bleeding. Review of Systems All systems reviewed & are unremarkable except as noted in HPI & below. Physical Exam * General: Alert and oriented, no acute distress * Constitutional: well-developed, well-nourished. * Respiratory: Normal respiratory effort, no distress * Gastrointestinal: No tenderness to palpation, no rigidity or guarding. * Skin: No rash or lesion. * Neurologic: Grossly normal * Musculoskeletal: Right knee surgical dressing CDI, not removed for exam. Otherwise no obvious deformity or overlying skin changes RLE. Diffuse TTP distal thigh and knee region. Otherwise no specific tenderness of proximal thigh, lower leg, foot/ankle. AROM knee flexion 90 degrees. AROM foot/ankle intact. Sensation intact plantar/dorsal foot. Brisk capillary refill. Results & Data Results & Data Laboratory Results . Diagnostic Findings . PG Care Time/CCT Total # of Minutes Spent Total Time Spent with Patient: Total time spent is greater than 50% in coordination of care (as documented) at patient's floor/unit and/or counseling patient: Coding Level of Care Code 52701 Post Operative Follow-Up Diagnoses Status post total right knee replacement Z96.651
== END 2025-05-02 13:30 | disposition home health service (06) ==
LOC: ASU 05:46 → 3E 05:46